=== PATIENT | female | born 1960 | race Caucasian/White ===

== ENCOUNTER 2017-10-13 06:16 | Emergency (ER) | payer OTHER, SELFPAY ==
[2017-10-13 06:30] VITALS: BP 160/100; PULSE 86; RESP 18; TEMP 36.6; O2SAT 99; BMI 29.1
--- NOTE | 2017-10-13 07:21 | ED.DENTAL ---
HPI - Dental/Oral General Chief complaint: Dental/Oral Stated complaint: MOUTH AND NECK ARE SWOLLEN Time Seen by Provider: 10/13/17 07:21 Source: patient Mode of arrival: ambulatory Limitations: no limitations History of Present Illness HPI Narrative: Patient presents to the emergency department today with a chief complaint of left jaw swelling and pain, presumably from a chronically bad tooth which has been bothering her for many months. She denies any fever or chills nor followed taste in her mouth. She denies trauma or injury MD Complaint: tooth pain 1. Onset (ago): month(s) Duration: constant Severity: mild Exacerbating factors: chewing Context: history of dental caries Associated symptoms: gum swelling Treatment prior to arrival: none Related Data Home Medications Medication Instructions Recorded Confirmed amoxicillin 500 mg PO ONCE PM 10/13/17 10/13/17 Previous Rx's Medication Instructions Recorded amoxicillin-pot clavulanate 1 tab PO BID #20 tab 10/13/17 [Augmentin] Allergies Allergy/AdvReac Type Severity Reaction Status Date / Time No Known Drug Allergies Allergy Verified 10/13/17 06:36 Review of Systems Review of Systems All systems reviewed & are unremarkable except as noted in HPI and below Constitutional Denies chills, Denies fever(s), Denies lethargy and Denies weakness Eyes Denies change in vision, Denies eye discharge, Denies irritation and Denies loss of vision ENT Ears, Nose, Mouth, and Throat: Denies change in voice, Reports facial pain, Reports mouth pain, Denies neck pain and Denies sore throat Cardiovascular Denies chest pain, Denies irregular heart rhythm, Denies lightheadedness, Denies palpitations and Denies orthopnea Gastrointestinal Gastrointestinal: Denies abdominal pain, Denies change in bowel habits, Denies diarrhea, Denies nausea and Denies vomiting Musculoskeletal Denies neck pain Integumentary/Breasts Denies pruritus, Denies erythema, Denies rash and Denies wounds Neurologic Denies loss of vision and Denies weakness Endocrine Denies palpitations [facility] Social History Smoking Status: Current every day smoker Exam Narrative Exam Narrative: Pleasant 57-year-old female in mild distress, holding the left side of her lower jaw Const General: cooperative and well developed Nutritional Appearance: well nourished Orientation: alert, awake, oriented x3 and not confused HENOR Head: normocephalic and atraumatic Ears: external ears normal and TM's normal bilaterally Nose: external nose normal and No nasal discharge Face and sinus: sinuses nontender, face asymmetric, no ecchymosis, edema on the left mandible, no fluctuance, no sinus tenderness, tenderness and No dry mucous membranes Mouth: oral mucosae normal, tongue normal and moist mucous membranes Teeth and gingiva: abnormal dentition, abnormal tooth or associated gingiva, caries and poor dentition Throat: tonsils normal and uvula midline Eyes General: appearance normal, both eyes and all related structures Eyelids: eyelids normal Conjunctivae: conjunctivae normal Sclera: sclerae normal Pupils: PERRL EOM: EOM intact bilaterally Resp Effort & Inspection: normal respiratory effort, able to speak in complete sentences, no respiratory distress and no use of accessory muscles Auscultation: clear to auscultation bilaterally, no rales, no rhonchi and no wheezes GI Inspection: non-distended Palpation: soft, no hepatosplenomegaly, No guarding, No pulsatile mass and No tender Auscultation: normal bowel sounds Skin General: no rashes or lesions noted, No jaundice and No petechiae Course Last Vital Signs Temp 97.9 F 10/13/17 06:30 Pulse 86 10/13/17 06:30 Resp 18 10/13/17 06:30 BP 160/100 H 10/13/17 06:30 Pulse Ox 99 10/13/17 06:30 Discharge Plan Departure Patient Disposition: Home, Self-Care Clinical Impression: Dental infection Discharge Date/Time: 10/13/17 07:54 Interventions: ED Discharge Assessment Last Done: 10/13/17 07:54 Instructions: Tooth Abscess Activity Restrictions/Additional Instructions: There is no evidence of an emergent or life threatening illness at this time, but follow up with your doctor in 1-2 days is recommended nonetheless to continue to rule out serious underlying causes of your symptoms. Please call the office for an appointment. Please return to the Emergency Department for any worsening or persistent symptoms. Please take medications as directed. Prescriptions: New amoxicillin-pot clavulanate [Augmentin] 875-125 mg tablet 1 tab PO BID Qty: 20 RF: 0 No Action amoxicillin 500 mg Tablet 500 mg PO ONCE PM RF: 0
== END 2017-10-13 07:54 | disposition home or self-care (01) ==
PROVIDERS: Emergency Provider Emergency Medicine
DX: K04.7 Periapical abscess without sinus (principal)
CPT/HCPCS: 99282; 99283

== ENCOUNTER 2019-01-11 14:03 | Emergency (ER) | payer OTHER, SELFPAY ==
[2019-01-11 14:05] VITALS: BP 167/81; PULSE 92; RESP 15; TEMP 36.5; O2SAT 98; BMI 31.0
[2019-01-11 14:37] LABS: INR 0.9 (0.9-1.3); Prothrombin Time 10.4 SECONDS (10.1-12.7)
[2019-01-11 14:39] LABS: Add Manual Diff / Slide Review NO; Basophils Absolute Auto 200 /uL (0-100); Basophils Percent Auto 3.9 % (0-2); Eosinophils Absolute Auto 100 /uL (0-450); Eosinophils Percent Auto 2.5 % (2-4); Hematocrit 37.9 % (36-46); Hemoglobin 12.8 g/dL (12.0-16.0); Lymphocytes Absolute Auto 2100 /uL (1100-4500); Lymphocytes Percent Auto 35.2 % (25-40); Mean Corpuscular HGB Conc 33.8 % (30-36); Mean Corpuscular Volume 85.7 fL (80-100); Monocytes Absolute Auto 500 /uL (0-900); Monocytes Percent Auto 8.9 % (3-14); Neutrophils Absolute Auto 3000 /uL (1500-7000); Neutrophils Percent Auto 49.5 % (50-75); Platelet Count 272 X10^3/uL (150-400); Red Blood Cell Count 4.42 X10^6/uL (4.0-5.2); Red Cell Distribution Width 13.6 % (11.6-14.8)
[2019-01-11 14:40] LABS: PTT Partial Thromboplastin Tim 32 SECONDS (26.4-36.2)
[2019-01-11 14:41] LABS: Alanine Aminotransferase 98 IU/L (9-52); Albumin 4.3 g/dL (3.5-5.0); Albumin Globulin Ratio 1.3 (1.0-2.8); Alkaline Phosphatase 111 U/L (38-126); Aspartate Aminotransferase 118 IU/L (14-36); Bilirubin Total 0.4 mg/dL (0.2-1.3); Blood Urea Nitrogen 12 mg/dL (7-17); Calcium 9.4 mg/dL (8.4-10.2); Carbon Dioxide 25 mmol/L (22-32); Chloride 107 mmol/L (98-107); Estimated Glomerular Filt Rate > 60.0 mL/min (>60); Globulin 3.2 g/dL (1.7-4.1); Glucose 87 mg/dL (70-100); HEMOLYSIS 25 (0-50); Sodium 141 mmol/L (137-145); Total Protein 7.5 g/dL (6.3-8.2)
[2019-01-11 15:01] VITALS: BP 139/64; PULSE 75; RESP 16; O2SAT 98
[2019-01-11 15:03] VITALS: BP 152/83; PULSE 76; RESP 18; O2SAT 100
[2019-01-11 15:30] VITALS: BP 147/79; PULSE 76; RESP 18; O2SAT 99
[2019-01-11 15:34] LABS: Bacteria Urine Moderate (10-30); Mucus Urine 1+ (Negative); RBC Urine 1-5/HPF (0-5/HPF); Squamous Epithelial Cell Urine 5-10 /HPF (0-5/HPF); WBC Urine 5-10/HPF (0-5/HPF)
[2019-01-11 15:35] LABS: Culture Indicated Urine Cult Not Indicated
[2019-01-11 16:00] VITALS: BP 151/95; PULSE 83; RESP 17; O2SAT 100
--- NOTE | 2019-01-11 16:28 | ED.GIBLEED ---
HPI - GI Bleed <ZAYNAB Alcantar - Last Filed: 01/12/19 02:50> General Chief complaint: GI Bleed Stated complaint: states rectal bleeding Time Seen by Provider: 01/11/19 14:11 Source: patient Mode of arrival: ambulatory Limitations: no limitations History of Present Illness HPI Narrative: This is pleasant 58-year-old female, smoker, who presents with her sister with chief complain of bright red rectal bleeding in to toilet 5 days ago. Patient reports she had about 6 soft stool with the bright rectal bleeding. Than she had dark colored soft stool 3 days ago. She reports history of external hemorrhoids but usually feels itching and has a small amount of bleeding on a tissue. She denies abdominal pain, chest pain, breathing trouble, dizziness. She reports maybe feeling increase in fatigue from her baseline. She does not take anticoagulants or antiplatelets at this time. She has been taking Motrin for headaches last 3-4 days. She reports last 2 days her bowel movements look in normal appearance. Related Data Allergies Allergy/AdvReac Type Severity Reaction Status Date / Time No Known Drug Allergies Allergy Verified 10/13/17 06:36 Review of Systems <ZAYNAB Alcantar - Last Filed: 01/12/19 02:50> Review of Systems General: See HPI HEENT: Denies sinus pain, ear pain, sore throat, difficulty swallowing, dizziness. Respiratory: Denies dyspnea, cough, wheezing, hemoptysis, sputum. Cardiovascular: Denies chest pain, palpitations, orthopnea, edema. Gastrointestinal: See HPI : Denies dysuria, frequency, incontinence, hematuria, urinary retention. Musculoskeletal: Denies weakness, joint pain or bony pain. Skin: Denies rash, skin lesions, or other. Neurologic: Denies weakness, headache, numbness, change in speech, confusion, seizures, incoordination. Psychiatric: No concerning psychosocial issues. 12-point review of systems is negative except for those stated above. PFSH <ZAYNAB Alcantar - Last Filed: 01/12/19 02:50> Social History Smoking Status: Current every day smoker Social History Smoking Status: Current every day smoker Exam <ZAYNAB Alcantar - Last Filed: 01/12/19 02:50> Narrative Exam Narrative: GEN: Alert, oriented x 3, well appearing and nourished, and in no acute distress. Head: Normal cephalic, atraumatic. No scalp or temporal tenderness, palpable mass or rash. EYES: Pupils are equal, round, and reactive to light and accommodation. Extraocular muscles are intact bilaterally. There is no subconjunctival hemorrhage, exudate and sclera non-icteric. ENT: Bilateral auditory canals and tympanic membranes. Hearing grossly intact. Mucous membrane moist, no mucosal lesion. Throat without erythema, tonsillar hypertrophy or exudate. Uvula in midline, airway patent. Neck: Trachea in midline. No JVD, non-tender without lymphadenopathy. No masses or thyroid megaly. Supple, non-tender and no meningeal signs. CARDIAC: Normal regular rate and rhythm without murmurs, gallops, or rubs. No chest wall tenderness. No peripheral edema, cyanosis or pallor. Capillary refill is less than 2 seconds. RESPIRATORY: Lungs are cleat to auscultate bilaterally. No cough, wheezes, rales, or rhonchi. No stridor, respiratory distress, increase work of breathing, or accessary muscle used. ABD: Abdomen soft, nontender and non-distended. No guarding or rebound tenderness to palpate. Bowel sounds are normal in all 4 quadrants. There is no palpable masses or organomegaly. External hemorrhoids noted. No internal hemorrhoids palpated. Hemoccult test Negative here in ED and stool sample brought in from home. EXT: Full painless ROM of all extremities with no loss of sensation, strength, effusion or edema. SKIN: Warm, dry, normal color for patient. No erythema, lesions or rash over visible areas BACK: Nontender without deformity or crepitance. No flank tenderness. NEUROLOGICAL: Alert and oriented to place, time and person. Sensation and motor function intact bilaterally. No facial droops, dysphasia. PSYCHIATRIC: Good judgement and reason, without hallucinations, abnormal affect or abnormal behaviors during the examination. Initial Vital Signs Initial Vital Signs: Vital Signs Temperature 97.7 F 01/11/19 14:05 Pulse Rate 92 H 01/11/19 14:05 Respiratory Rate 15 01/11/19 14:05 Blood Pressure 167/81 H 01/11/19 14:05 Pulse Oximetry 98 01/11/19 14:05 <Isai Gooden DO - Last Filed: 01/13/19 06:38> Initial Vital Signs Initial Vital Signs: Vital Signs Temperature 97.7 F 01/11/19 14:05 Pulse Rate 92 H 01/11/19 14:05 Respiratory Rate 15 01/11/19 14:05 Blood Pressure 167/81 H 01/11/19 14:05 Pulse Oximetry 98 01/11/19 14:05 Course <EMELIA AlcantarP - Last Filed: 01/12/19 02:50> Orders Ordered: ED Orders 01/11/19 14:16 Complete Blood Count AUTO DIFF Stat Comprehensive Metabolic Panel Stat Partial Thromboplastin Time Stat Prothrombin Time INR Stat Type and Screen Stat 01/11/19 15:03 Urine Microscopic Stat Vital Signs - 8 hr 01/11/19 14:05 01/11/19 15:01 01/11/19 15:03 Temperature 97.7 F Pulse Rate 92 H 75 76 Respiratory Rate 15 16 18 Blood Pressure 167/81 H Blood Pressure [Left Arm] 139/64 152/83 H Pulse Oximetry 98 98 100 01/11/19 15:30 Temperature Pulse Rate 76 Respiratory Rate 18 Blood Pressure Blood Pressure [Left Arm] 147/79 H Pulse Oximetry 99 <Isai Gooden DO - Last Filed: 01/13/19 06:38> Orders Ordered: ED Orders 01/11/19 14:16 Complete Blood Count AUTO DIFF Stat Comprehensive Metabolic Panel Stat Partial Thromboplastin Time Stat Prothrombin Time INR Stat Type and Screen Stat 01/11/19 15:03 Urine Microscopic Stat Vital Signs - 8 hr 01/11/19 14:05 01/11/19 15:01 01/11/19 15:03 Temperature 97.7 F Pulse Rate 92 H 75 76 Respiratory Rate 15 16 18 Blood Pressure 167/81 H Blood Pressure [Left Arm] 139/64 152/83 H Pulse Oximetry 98 98 100 01/11/19 15:30 Temperature Pulse Rate 76 Respiratory Rate 18 Blood Pressure Blood Pressure [Left Arm] 147/79 H Pulse Oximetry 99 MDM - GI Bleed <ZAYNAB Alcantar - Last Filed: 01/12/19 02:50> Differential Diagnosis Likely hemorrhoids, gastritis, Upper gastrointestinal hemorrhage, Lower gastrointestinal hemorrhage and anal fissure Medical Records Attestation: I reviewed the patient's medical records. Lab Data Attestation: I reviewed the patient's lab results. Result diagrams: 01/11/19 14:16 01/11/19 14:16 Lab Results 01/11/19 01/11/19 01/11/19 Range/Units 14:16 14:16 14:16 WBC 6.0 (4.5-11.0) X10^3/uL RBC 4.42 (4.0-5.2) X10^6/uL Hgb 12.8 (12.0-16.0) g/dL Hct 37.9 (36-46) % MCV 85.7 (80-100) fL MCH 29.0 (26-34) PG MCHC 33.8 (30-36) % RDW 13.6 (11.6-14.8) % Plt Count 272 (150-400) X10^3/uL Neut % (Auto) 49.5 L (50-75) % Lymph % (Auto) 35.2 (25-40) % Pike % (Auto) 8.9 (3-14) % Eos % (Auto) 2.5 (2-4) % Baso % (Auto) 3.9 H (0-2) % Neut # (Auto) 3000 (7385-1818) /uL Lymph # (Auto) 2100 (2239-9463) /uL Pike # (Auto) 500 (0-900) /uL Eos # (Auto) 100 (0-450) /uL Baso # (Auto) 200 H (0-100) /uL PT 10.4 (10.1-12.7) SECONDS INR 0.9 (0.9-1.3) APTT 32 (26.4-36.2) SECONDS Sodium 141 (137-145) mmol/L Potassium 4.0 (3.4-5.1) mmol/L Chloride 107 (98-107) mmol/L Carbon Dioxide 25 (22-32) mmol/L BUN 12 (7-17) mg/dL Creatinine 0.60 (0.52-1.04) mg/dL Estimated GFR > 60.0 (>60) mL/min BUN/Creatinine Ratio 20.0 (6-22) Glucose 87 (70-100) mg/dL Calcium 9.4 (8.4-10.2) mg/dL Total Bilirubin 0.4 (0.2-1.3) mg/dL AST 118 H (14-36) IU/L ALT 98 H (9-52) IU/L Alkaline Phosphatase 111 (38-126) U/L Total Protein 7.5 (6.3-8.2) g/dL Albumin 4.3 (3.5-5.0) g/dL Globulin 3.2 (1.7-4.1) g/dL Albumin/Globulin Ratio 1.3 (1.0-2.8) Urine RBC (0-5/HPF) Urine WBC (0-5/HPF) Ur Squamous Epith Cells (0-5/HPF) Urine Bacteria (None) Urine Mucus (Negative) Ur Culture Indicated? Blood Type Antibody Screen 01/11/19 01/11/19 Range/Units 14:16 15:03 WBC (4.5-11.0) X10^3/uL RBC (4.0-5.2) X10^6/uL Hgb (12.0-16.0) g/dL Hct (36-46) % MCV (80-100) fL MCH (26-34) PG MCHC (30-36) % RDW (11.6-14.8) % Plt Count (150-400) X10^3/uL Neut % (Auto) (50-75) % Lymph % (Auto) (25-40) % [place]ike % (Auto) (3-14) % Eos % (Auto) (2-4) % Baso % (Auto) (0-2) % Neut # (Auto) (1254-5994) /uL Lymph # (Auto) (4456-5970) /uL Pike # (Auto) (0-900) /uL Eos # (Auto) (0-450) /uL Baso # (Auto) (0-100) /uL PT (10.1-12.7) SECONDS INR (0.9-1.3) APTT (26.4-36.2) SECONDS Sodium (137-145) mmol/L Potassium (3.4-5.1) mmol/L Chloride (98-107) mmol/L Carbon Dioxide (22-32) mmol/L BUN (7-17) mg/dL Creatinine (0.52-1.04) mg/dL Estimated GFR (>60) mL/min BUN/Creatinine Ratio (6-22) Glucose (70-100) mg/dL Calcium (8.4-10.2) mg/dL Total Bilirubin (0.2-1.3) mg/dL AST (14-36) IU/L ALT (9-52) IU/L Alkaline Phosphatase (38-126) U/L Total Protein (6.3-8.2) g/dL Albumin (3.5-5.0) g/dL Globulin (1.7-4.1) g/dL Albumin/Globulin Ratio (1.0-2.8) Urine RBC 1-5/hpf (0-5/HPF) Urine WBC 5-10/hpf H (0-5/HPF) Ur Squamous Epith Cells 5-10 /hpf H (0-5/HPF) Urine Bacteria Moderate (10-30) H (None) Urine Mucus 1+ H (Negative) Ur Culture Indicated? Cult not indicated Blood Type O Positive Antibody Screen Negative Urine Dip Bedside Urine Glucose Negative Bedside Urine Bilirubin - Negative Bedside Urine Ketone - Negative Urine Specific [place] 1.030 Bedside Urine Occult Blood +/- Bedside Urine pH 5 Bedside Urine Protein - Negative Bedside Urine Urobilinogen - Negative Bedside Urine Nitrite - Negative Bedside Urine Leukocytes + 70 Esterase MDM Narrative Medical decision making narrative: This is a 58 year old female who presents with bright rectal bleeding 5 days ago and dark color stool 3 days ago. She has contacted her primary care physician she was advised to be evaluated ED. Today's lab test for CBC, chemistry, coagulants were unremarkable, except incidental findings of elevated AST and ALT. Physical exam was benign and does not exhibit any abdominal tenderness, distention, organomegaly. Rectal exam was done with Hemoccult test which was negative. Visualized external hemorrhoids during exam but no fissures were noted. Findings were shared with the patient and her sister. The patient was advised to follow with her doctor in 2-3 days for re-evaluation and possible referral for colonoscopy the problem persists. Return precautions were discussed with the patient. No further questions expressed at this time and patient agrees with treatment plan. <Isai Gooden DO - Last Filed: 01/13/19 06:38> Lab Data Lab Results 01/11/19 01/11/19 01/11/19 Range/Units 14:16 14:16 14:16 WBC 6.0 (4.5-11.0) X10^3/uL RBC 4.42 (4.0-5.2) X10^6/uL Hgb 12.8 (12.0-16.0) g/dL Hct 37.9 (36-46) % MCV 85.7 (80-100) fL MCH 29.0 (26-34) PG MCHC 33.8 (30-36) % RDW 13.6 (11.6-14.8) % Plt Count 272 (150-400) X10^3/uL Neut % (Auto) 49.5 L (50-75) % Lymph % (Auto) 35.2 (25-40) % Pike % (Auto) 8.9 (3-14) % Eos % (Auto) 2.5 (2-4) % Baso % (Auto) 3.9 H (0-2) % Neut # (Auto) 3000 (3949-8309) /uL Lymph # (Auto) 2100 (1678-3999) /uL Pike # (Auto) 500 (0-900) /uL Eos # (Auto) 100 (0-450) /uL Baso # (Auto) 200 H (0-100) /uL PT 10.4 (10.1-12.7) SECONDS INR 0.9 (0.9-1.3) APTT 32 (26.4-36.2) SECONDS Sodium 141 (137-145) mmol/L Potassium 4.0 (3.4-5.1) mmol/L Chloride 107 (98-107) mmol/L Carbon Dioxide 25 (22-32) mmol/L BUN 12 (7-17) mg/dL Creatinine 0.60 (0.52-1.04) mg/dL Estimated GFR > 60.0 (>60) mL/min BUN/Creatinine Ratio 20.0 (6-22) Glucose 87 (70-100) mg/dL Calcium 9.4 (8.4-10.2) mg/dL Total Bilirubin 0.4 (0.2-1.3) mg/dL AST 118 H (14-36) IU/L ALT 98 H (9-52) IU/L Alkaline Phosphatase 111 (38-126) U/L Total Protein 7.5 (6.3-8.2) g/dL Albumin 4.3 (3.5-5.0) g/dL Globulin 3.2 (1.7-4.1) g/dL Albumin/Globulin Ratio 1.3 (1.0-2.8) Urine RBC (0-5/HPF) Urine WBC (0-5/HPF) Ur Squamous Epith Cells (0-5/HPF) Urine Bacteria (None) Urine Mucus (Negative) Ur Culture Indicated? Blood Type Antibody Screen 01/11/19 01/11/19 Range/Units 14:16 15:03 WBC (4.5-11.0) X10^3/uL RBC (4.0-5.2) X10^6/uL Hgb (12.0-16.0) g/dL Hct (36-46) % MCV (80-100) fL MCH (26-34) PG MCHC (30-36) % RDW (11.6-14.8) % Plt Count (150-400) X10^3/uL Neut % (Auto) (50-75) % Lymph % (Auto) (25-40) % [place] % (Auto) (3-14) % Eos % (Auto) (2-4) % Baso % (Auto) (0-2) % Neut # (Auto) (6840-6269) /uL Lymph # (Auto) (0948-7674) /uL [place]ike # (Auto) (0-900) /uL Eos # (Auto) (0-450) /uL Baso # (Auto) (0-100) /uL PT (10.1-12.7) SECONDS INR (0.9-1.3) APTT (26.4-36.2) SECONDS Sodium (137-145) mmol/L Potassium (3.4-5.1) mmol/L Chloride (98-107) mmol/L Carbon Dioxide (22-32) mmol/L BUN (7-17) mg/dL Creatinine (0.52-1.04) mg/dL Estimated GFR (>60) mL/min BUN/Creatinine Ratio (6-22) Glucose (70-100) mg/dL Calcium (8.4-10.2) mg/dL Total Bilirubin (0.2-1.3) mg/dL AST (14-36) IU/L ALT (9-52) IU/L Alkaline Phosphatase (38-126) U/L Total Protein (6.3-8.2) g/dL Albumin (3.5-5.0) g/dL Globulin (1.7-4.1) g/dL Albumin/Globulin Ratio (1.0-2.8) Urine RBC 1-5/hpf (0-5/HPF) Urine WBC 5-10/hpf H (0-5/HPF) Ur Squamous Epith Cells 5-10 /hpf H (0-5/HPF) Urine Bacteria Moderate (10-30) H (None) Urine Mucus 1+ H (Negative) Ur Culture Indicated? Cult not indicated Blood Type O Positive Antibody Screen Negative Urine Dip Bedside Urine Glucose Negative Bedside Urine Bilirubin - Negative Bedside Urine Ketone - Negative Urine Specific [place] 1.030 Bedside Urine Occult Blood +/- Bedside Urine pH 5 Bedside Urine Protein - Negative Bedside Urine Urobilinogen - Negative Bedside Urine Nitrite - Negative Bedside Urine Leukocytes + 70 Esterase Discharge Plan Departure Patient Disposition: Home Clinical Impression: External hemorrhoid Discharge Date/Time: 01/11/19 16:45 Interventions: ED Discharge Assessment Last Done: 01/11/19 16:45 Instructions: DI for Hemorrhoids, Gastrointestinal Bleeding Activity Restrictions/Additional Instructions: You have been diagnosed with [external hemorrhoids. Your blood count looks good today there is no signs of anemia. Incidental finding of mildly elevated liver function test (AST and ALT) please follow up with your doctor next couple of months on this. ]. What to do: *Take your medications as directed. No new medications to go home from this visit. *Follow up with your primary care provider in 2-3 days, call for an appointment. Let them know you were seen in the ED and that we asked you to be seen in follow up. *Return to ED if you have any new, worsening, or concerning symptoms, such as [bright red rectal bleeding, black tarry stool, abdominal pain, vomiting, unable to tolerate fluids, dizziness, chest pain, breathing difficulty, difficulty with bowel movement]. Referrals: [facility] [Outside] <Isia Gooden DO - Last Filed: 01/13/19 06:38> Cosign ED Attending Teresa Attestation: I was immediately available in the department for consultation. Documentation has been reviewed. I agree with assessment and plan.
--- NOTE | 2019-01-11 16:36 | ED_ITS ---
HPI - GI Bleed <ZAYNAB Alcantar - Last Filed: 01/12/19 02:50> General Chief complaint: GI Bleed Stated complaint: states rectal bleeding Time Seen by Provider: 01/11/19 14:11 Source: patient Mode of arrival: ambulatory Limitations: no limitations History of Present Illness HPI Narrative: This is pleasant 58-year-old female, smoker, who presents with her sister with chief complain of bright red rectal bleeding in to toilet 5 days ago. Patient reports she had about 6 soft stool with the bright rectal bleeding. Than she had dark colored soft stool 3 days ago. She reports history of external hemorrhoids but usually feels itching and has a small amount of bleeding on a tissue. She denies abdominal pain, chest pain, breathing trouble, dizziness. She reports maybe feeling increase in fatigue from her baseline. She does not take anticoagulants or antiplatelets at this time. She has been taking Motrin for headaches last 3-4 days. She reports last 2 days her bowel movements look in normal appearance. Related Data Allergies Allergy/AdvReac Type Severity Reaction Status Date / Time No Known Drug Allergies Allergy Verified 10/13/17 06:36 Review of Systems <ZAYNAB Alcantar - Last Filed: 01/12/19 02:50> Review of Systems General: See HPI HEENT: Denies sinus pain, ear pain, sore throat, difficulty swallowing, dizziness. Respiratory: Denies dyspnea, cough, wheezing, hemoptysis, sputum. Cardiovascular: Denies chest pain, palpitations, orthopnea, edema. Gastrointestinal: See HPI : Denies dysuria, frequency, incontinence, hematuria, urinary retention. Musculoskeletal: Denies weakness, joint pain or bony pain. Skin: Denies rash, skin lesions, or other. Neurologic: Denies weakness, headache, numbness, change in speech, confusion, seizures, incoordination. Psychiatric: No concerning psychosocial issues. 12-point review of systems is negative except for those stated above. PFSH <ZAYNAB Alcantar - Last Filed: 01/12/19 02:50> Social History Smoking Status: Current every day smoker Social History Smoking Status: Current every day smoker Exam <ZAYNAB Alcantar - Last Filed: 01/12/19 02:50> Narrative Exam Narrative: GEN: Alert, oriented x 3, well appearing and nourished, and in no acute distress. Head: Normal cephalic, atraumatic. No scalp or temporal tenderness, palpable mass or rash. EYES: Pupils are equal, round, and reactive to light and accommodation. Extraocular muscles are intact bilaterally. There is no subconjunctival hemorrhage, exudate and sclera non-icteric. ENT: Bilateral auditory canals and tympanic membranes. Hearing grossly intact. Mucous membrane moist, no mucosal lesion. Throat without erythema, tonsillar hypertrophy or exudate. Uvula in midline, airway patent. Neck: Trachea in midline. No JVD, non-tender without lymphadenopathy. No masses or thyroid megaly. Supple, non-tender and no meningeal signs. CARDIAC: Normal regular rate and rhythm without murmurs, gallops, or rubs. No chest wall tenderness. No peripheral edema, cyanosis or pallor. Capillary refill is less than 2 seconds. RESPIRATORY: Lungs are cleat to auscultate bilaterally. No cough, wheezes, rales, or rhonchi. No stridor, respiratory distress, increase work of breathing, or accessary muscle used. ABD: Abdomen soft, nontender and non-distended. No guarding or rebound tenderne ss to palpate. Bowel sounds are normal in all 4 quadrants. There is no palpable masses or organomegaly. External hemorrhoids noted. No internal hemorrhoids palpated. Hemoccult test Negative here in ED and stool sample brought in from home. EXT: Full painless ROM of all extremities with no loss of sensation, strength, effusion or edema. SKIN: Warm, dry, normal color for patient. No erythema, lesions or rash over visible areas BACK: Nontender without deformity or crepitance. No flank tenderness. NEUROLOGICAL: Alert and oriented to place, time and person. Sensation and motor function intact bilaterally. No facial droops, dysphasia. PSYCHIATRIC: Good judgement and reason, without hallucinations, abnormal affect or abnormal behaviors during the examination. Initial Vital Signs Initial Vital Signs: Vital Signs Temperature 97.7 F 01/11/19 14:05 Pulse Rate 92 H 01/11/19 14:05 Respiratory Rate 15 01/11/19 14:05 Blood Pressure 167/81 H 01/11/19 14:05 Pulse Oximetry 98 08/09/19 14:05 <Isai Gooden DO - Last Filed: 01/13/19 06:38> Initial Vital Signs Initial Vital Signs: Vital Signs Temperature 97.7 F 01/11/19 14:05 Pulse Rate 92 H 01/11/19 14:05 Respiratory Rate 15 01/11/19 14:05 Blood Pressure 167/81 H 01/11/19 14:05 Pulse Oximetry 98 01/11/19 14:05 Course <EMELIA AlcantarP - Last Filed: 01/12/19 02:50> Orders Ordered: ED Orders 01/11/19 14:16 Complete Blood Count AUTO DIFF Stat Comprehensive Metabolic Panel Stat Partial Thromboplastin Time Stat Prothrombin Time INR Stat Type and Screen Stat 01/11/19 15:03 Urine Microscopic Stat Vital Signs - 8 hr 01/11/19 14:05 01/11/19 15:01 01/11/19 15:03 Temperature 97.7 F Pulse Rate 92 H 75 76 Respiratory Rate 15 16 18 Blood Pressure 167/81 H Blood Pressure [Left Arm] 139/64 152/83 H Pulse Oximetry 98 98 100 01/11/19 15:30 Temperature Pulse Rate 76 Respiratory Rate 18 Blood Pressure Blood Pressure [Left Arm] 147/79 H Pulse Oximetry 99 <Isai Gooden DO - Last Filed: 01/13/19 06:38> Orders Ordered: ED Orders 01/11/19 14:16 Complete Blood Count AUTO DIFF Stat Comprehensive Metabolic Panel Stat Partial Thromboplastin Time Stat Prothrombin Time INR Stat Type and Screen Stat 01/11/19 15:03 Urine Microscopic Stat Vital Signs - 8 hr 01/11/19 14:05 01/11/19 15:01 01/11/19 15:03 Temperature 97.7 F Pulse Rate 92 H 75 76 Respiratory Rate 15 16 18 Blood Pressure 167/81 H Blood Pressure [Left Arm] 139/64 152/83 H Pulse Oximetry 98 98 100 01/11/19 15:30 Temperature Pulse Rate 76 Respiratory Rate 18 Blood Pressure Blood Pressure [Left Arm] 147/79 H Pulse Oximetry 99 MDM - GI Bleed <ZAYNAB Alcantar - Last Filed: 01/12/19 02:50> Differential Diagnosis Likely hemorrhoids, gastritis, Upper gastrointestinal hemorrhage, Lower gastrointestinal hemorrhage and anal fissure Medical Records Attestation: I reviewed the patient's medical records. Lab Data Attestation: I reviewed the patient's lab results. Result diagrams: 01/11/19 14:16 01/11/19 14:16 Lab Results 01/11/19 01/11/19 01/11/19 Range/Units 14:16 14:16 14:16 WBC 6.0 (4.5-11.0) X10^3/uL RBC 4.42 (4.0-5.2) X10^6/uL Hgb 12.8 (12.0-16.0) g/dL Hct 37.9 (36-46) % MCV 85.7 (80-100) fL MCH 29.0 (26-34) PG MCHC 33.8 (30-36) % RDW 13.6 (11.6-14.8) % Plt Count 272 (150-400) X10^3/uL Neut % (Auto) 49.5 L (50-75) % Lymph % (Auto) 35.2 (25-40) % [place] % (Auto) 8.9 (3-14) % Eos % (Auto) 2.5 (2-4) % Baso % (Auto) 3.9 H (0-2) % Neut # (Auto) 3000 (8921-9610) /uL Lymph # (Auto) 2100 (3077-0156) /uL [place] # (Auto) 500 (0-900) /uL Eos # (Auto) 100 (0-450) /uL Baso # (Auto) 200 H (0-100) /uL PT 10.4 (10.1-12.7) SECONDS INR 0.9 (0.9-1.3) APTT 32 (26.4-36.2) SECONDS Sodium 141 (137-145) mmol/L Potassium 4.0 (3.4-5.1) mmol/L Chloride 107 (98-107) mmol/L Carbon Dioxide 25 (22-32) mmol/L BUN 12 (7-17) mg/dL Creatinine 0.60 (0.52-1.04) mg/dL Estimated GFR > 60.0 (>60) mL/min BUN/Creatinine Ratio 20.0 (6-22) Glucose 87 (70-100) mg/dL Calcium 9.4 (8.4-10.2) mg/dL Total Bilirubin 0.4 (0.2-1.3) mg/dL AST 118 H (14-36) IU/L ALT 98 H (9-52) IU/L Alkaline Phosphatase 111 (38-126) U/L Total Protein 7.5 (6.3-8.2) g/dL Albumin 4.3 (3.5-5.0) g/dL Globulin 3.2 (1.7-4.1) g/dL Albumin/Globulin Ratio 1.3 (1.0-2.8) Urine RBC (0-5/HPF) Urine WBC (0-5/HPF) Ur Squamous Epith Cells (0-5/HPF) Urine Bacteria (None) Urine Mucus (Negative) Ur Culture Indicated? Blood Type Antibody Screen 01/11/19 01/11/19 Range/Units 14:16 15:03 WBC (4.5-11.0) X10^3/uL RBC (4.0-5.2) X10^6/uL Hgb (12.0-16.0) g/dL Hct (36-46) % MCV (80-100) fL MCH (26-34) PG MCHC (30-36) % RDW (11.6-14.8) % Plt Count (150-400) X10^3/uL Neut % (Auto) (50-75) % Lymph % (Auto) (25-40) % [place] % (Auto) (3-14) % Eos % (Auto) (2-4) % Baso % (Auto) (0-2) % Neut # (Auto) (9803-9912) /uL Lymph # (Auto) (0935-4201) /uL [place] # (Auto) (0-900) /uL Eos # (Auto) (0-450) /uL Baso # (Auto) (0-100) /uL PT (10.1-12.7) SECONDS INR (0.9-1.3) APTT (26.4-36.2) SECONDS Sodium (137-145) mmol/L Potassium (3.4-5.1) mmol/L Chloride (98-107) mmol/L Carbon Dioxide (22-32) mmol/L BUN (7-17) mg/dL Creatinine (0.52-1.04) mg/dL Estimated GFR (>60) mL/min BUN/Creatinine Ratio (6-22) Glucose (70-100) mg/dL Calcium (8.4-10.2) mg/dL Total Bilirubin (0.2-1.3) mg/dL AST (14-36) IU/L ALT (9-52) IU/L Alkaline Phosphatase (38-126) U/L Total Protein (6.3-8.2) g/dL Albumin (3.5-5.0) g/dL Globulin (1.7-4.1) g/dL Albumin/Globulin Ratio (1.0-2.8) Urine RBC 1-5/hpf (0-5/HPF) Urine WBC 5-10/hpf H (0-5/HPF) Ur Squamous Epith Cells 5-10 /hpf H (0-5/HPF) Urine Bacteria Moderate (10-30) H (None) Urine Mucus 1+ H (Negative) Ur Culture Indicated? Cult not indicated Blood Type O Positive Antibody Screen Negative Urine Dip Bedside Urine Glucose Negative Bedside Urine Bilirubin - Negative Bedside Urine Ketone - Negative Urine Specific Start 1.030 Bedside Urine Occult Blood +/- Bedside Urine pH 5 Bedside Urine Protein - Negative Bedside Urine Urobilinogen - Negative Bedside Urine Nitrite - Negative Bedside Urine Leukocytes + 70 Esterase MDM Narrative Medical decision making narrative: This is a 58 year old female who presents with bright rectal bleeding 5 days ago and dark color stool 3 days ago. She has contacted her primary care physician she was advised to be evaluated ED. Today's lab test for CBC, chemistry, coagulants were unremarkable, except incidental findings of elevated AST and ALT. Physical exam was benign and does not exhibit any abdominal tenderness, distention, organomegaly. Rectal exam was done with Hemoccult test which was negative. Visualized external hemorrhoids du ring exam but no fissures were noted. Findings were shared with the patient and her sister. The patient was advised to follow with her doctor in 2-3 days for re-evaluation and possible referral for colonoscopy the problem persists. Return precautions were discussed with the patient. No further questions expressed at this time and patient agrees with treatment plan. <Isai Gooden DO - Last Filed: 01/13/19 06:38> Lab Data Lab Results 01/11/19 01/11/19 01/11/19 Range/Units 14:16 14:16 14:16 WBC 6.0 (4.5-11.0) X10^3/uL RBC 4.42 (4.0-5.2) X10^6/uL Hgb 12.8 (12.0-16.0) g/dL Hct 37.9 (36-46) % MCV 85.7 (80-100) fL MCH 29.0 (26-34) PG MCHC 33.8 (30-36) % RDW 13.6 (11.6-14.8) % Plt Count 272 (150-400) X10^3/uL Neut % (Auto) 49.5 L (50-75) % Lymph % (Auto) 35.2 (25-40) % [place] % (Auto) 8.9 (3-14) % Eos % (Auto) 2.5 (2-4) % Baso % (Auto) 3.9 H (0-2) % Neut # (Auto) 3000 (4439-7391) /uL Lymph # (Auto) 2100 (3986-7291) /uL [place] # (Auto) 500 (0-900) /uL Eos # (Auto) 100 (0-450) /uL Baso # (Auto) 200 H (0-100) /uL PT 10.4 (10.1-12.7) SECONDS INR 0.9 (0.9-1.3) APTT 32 (26.4-36.2) SECONDS Sodium 141 (137-145) mmol/L Potassium 4.0 (3.4-5.1) mmol/L Chloride 107 (98-107) mmol/L Carbon Dioxide 25 (22-32) mmol/L BUN 12 (7-17) mg/dL Creatinine 0.60 (0.52-1.04) mg/dL Estimated GFR > 60.0 (>60) mL/min BUN/Creatinine Ratio 20.0 (6-22) Glucose 87 (70-100) mg/dL Calcium 9.4 (8.4-10.2) mg/dL Total Bilirubin 0.4 (0.2-1.3) mg/dL AST 118 H (14-36) IU/L ALT 98 H (9-52) IU/L Alkaline Phosphatase 111 (38-126) U/L Total Protein 7.5 (6.3-8.2) g/dL Albumin 4.3 (3.5-5.0) g/dL Globulin 3.2 (1.7-4.1) g/dL Albumin/Globulin Ratio 1.3 (1.0-2.8) Urine RBC (0-5/HPF) Urine WBC (0-5/HPF) Ur Squamous Epith Cells (0-5/HPF) Urine Bacteria (None) Urine Mucus (Negative) Ur Culture Indicated? Blood Type Antibody Screen 01/11/19 01/11/19 Range/Units 14:16 15:03 WBC (4.5-11.0) X10^3/uL RBC (4.0-5.2) X10^6/uL Hgb (12.0-16.0) g/dL Hct (36-46) % MCV (80-100) fL MCH (26-34) PG MCHC (30-36) % RDW (11.6-14.8) % Plt Count (150-400) X10^3/uL Neut % (Auto) (50-75) % Lymph % (Auto) (25-40) % [place] % (Auto) (3-14) % Eos % (Auto) (2-4) % Baso % (Auto) (0-2) % Neut # (Auto) (1036-1187) /uL Lymph # (Auto) (4927-5546) /uL [place] # (Auto) (0-900) /uL Eos # (Auto) (0-450) /uL Baso # (Auto) (0-100) /uL PT (10.1-12.7) SECONDS INR (0.9-1.3) APTT (26.4-36.2) SECONDS Sodium (137-145) mmol/L Potassium (3.4-5.1) mmol/L Chloride (98-107) mmol/L Carbon Dioxide (22-32) mmol/L BUN (7-17) mg/dL Creatinine (0.52-1.04) mg/dL Estimated GFR (>60) mL/min BUN/Creatinine Ratio (6-22) Glucose (70-100) mg/dL Calcium (8.4-10.2) mg/dL Total Bilirubin (0.2-1.3) mg/dL AST (14-36) IU/L ALT (9-52) IU/L Alkaline Phosphatase (38-126) U/L Total Protein (6.3-8.2) g/dL Albumin (3.5-5.0) g/dL Globulin (1.7-4.1) g/dL Albumin/Globulin Ratio (1.0-2.8) Urine RBC 1-5/hpf (0-5/HPF) Urine WBC 5-10/hpf H (0-5/HPF) Ur Squamous Epith Cells 5-10 /hpf H (0-5/HPF) Urine Bacteria Moderate (10-30) H (None) Urine Mucus 1+ H (Negative) Ur Culture Indicated? Cult not indicated Blood Type O Positive Antibody Screen Negative Urine Dip Bedside Urine Glucose Negative Bedside Urine Bilirubin - Negative Bedside Urine Ketone - Negative Urine Specific Start 1.030 Bedside Urine Occult Blood +/- Bedside Urine pH 5 Bedside Urine Protein - Negative Bedside Urine Urobilinogen - Negative Bedside Urine Nitrite - Negative Bedside Urine Leukocytes + 70 Esterase Discharge Plan Departure Patient Disposition: Home Clinical Impression: External hemorrhoid Discharge Date/Time: 01/11/19 16:45 Interventions: ED Discharge Assessment Last Done: 01/11/19 16:45 Instructions: DI for Hemorrhoids, Gastrointestinal Bleeding Activity Restrictions/Additional Instructions: You have been diagnosed with [external hemorrhoids. Your blood count looks good today there is no signs of anemia. Incidental finding of mildly elevated liver function test (AST and ALT) please follow up with your doctor next couple of months on this. ]. What to do: *Take your medications as directed. No new medications to go home from this visit. *Follow up with your primary care provider in 2-3 days, call for an appointment. Let them know you were seen in the ED and that we asked you to be seen in follow up. *Return to ED if you have any new, worsening, or concerning symptoms, such as [bright red rectal bleeding, black tarry stool, abdominal pain, vomiting, unable to tolerate fluids, dizziness, chest pain, breathing difficulty, difficulty with bowel movement]. Referrals: [facility] [Outside] <Isai Gooden DO - Last Filed: 01/13/19 06:38> Cosign ED Attending Teresa Attestation: I was immediately available in the department for consultation. Documentation has been reviewed. I agree with assessment and plan.
== END 2019-01-11 16:45 | disposition home or self-care (01) ==
PROVIDERS: Emergency Provider Nurse Practitioner Family
DX: K64.4 Residual hemorrhoidal skin tags (principal)
CPT/HCPCS: 36591; 80053; 81003; 81015; 85025; 85610; 85730; 86850; 86900; 86901; 99283

== ENCOUNTER 2020-07-24 17:35 | Emergency (ER) | payer OTHER, SELFPAY ==
[2020-07-24 17:57] VITALS: BP 171/88; PULSE 91; RESP 12; TEMP 36.9; O2SAT 100
--- NOTE | 2020-07-24 19:00 | PC.NURSE ---
attempted to bring pt to ED,unable to locate pt in lobby
--- NOTE | 2020-07-24 19:48 | PC.NURSE ---
patient called for several times and was unable to locate patient. Patient returned from car.
--- NOTE | 2020-07-24 20:05 | ED_ITS ---
HPI - Extremity Problem General Chief complaint: Extremity Problem,Nontraumatic Stated complaint: right side leg swelling, 2wks, no injury Time Seen by Provider: 07/24/20 20:01 Source: patient Mode of arrival: Ambulatory Limitations: no limitations History of Present Illness HPI Narrative: Patient is a 60-year-old female here for evaluation of swelling in her right lower extremity. She states she has noticed it for the past couple weeks. She denies any trauma. No chest pain. No shortness of breath. She does feel like the swelling improves night will wall her foot is up in his worse throughout the day. She has not seen her primary doctor about her. She is not having any fevers. Has not tried anything for it. Related Data Allergies Allergy/AdvReac Type Severity Reaction Status Date / Time No Known Drug Allergies Allergy Verified 07/24/20 17:59 Review of Systems Constitutional Constitutional: Denies fever(s) and Denies headache(s) ENT Ears, Nose, Mouth, and Throat: Denies headache(s) Cardiovascular Cardiovascular: Denies chest pain and Denies dyspnea Respiratory Respiratory: Denies dyspnea Gastrointestinal Gastrointestinal: Denies abdominal pain, Denies change in bowel habits, Denies nausea and Denies vomiting Genitourinary Genitourinary: Denies dysuria Genitourinary: Denies dysuria Musculoskeletal Musculoskeletal: Denies arthralgias and Denies myalgias Comments: Right leg swelling Integumentary/Breasts Skin/Breast: Denies lesions and Denies rash Neurologic Neurologic: Denies behavioral changes and Denies headache(s) Psychiatric Psychiatric: Denies behavioral changes Hematologic/Lymphatic On Anticoagulants: No Allergic/Immunologic Allergic/Immunologic: Denies urticaria Patient History Medical History Parotitis UTI (urinary tract infection) Social History Smoking Status: Current every day smoker Smoking Status: Current every day smoker tobacco type: cigarettes alcohol intake frequency: holidays/special occasions only Substance Use Type: does not use Exam Initial Vital Signs Initial Vital Signs: Vital Signs Temperature 98.4 F 07/24/20 17:57 Pulse Rate 91 H 07/24/20 17:57 Respiratory Rate 12 07/24/20 17:57 Blood Pressure 171/88 H 07/24/20 17:57 Pulse Oximetry 100 02/19/21 17:57 Const General: cooperative and comfortable Limitations: mental status not altered HENMT Head: normal to inspection and normocephalic Resp Effort & Inspection: normal respiratory effort Cardio Rate: regular rate Skin Lesions: no lesions Rashes: no rashes Neuro General: patient alert, patient awake and patient oriented x3 Cognition: normal cognition Speech: speech normal Extrem Other: Patient does have swelling to her right lower extremity. She is soft compartments. No tenderness. No change in skin. She flex and extend her knee and ankle without discomfort. Psych Appearance: grossly normal and well kempt Course Orders Ordered: ED Orders 07/24/20 20:06 perip venous low extrem rt Stat 07/24/20 20:18 Complete Blood Count AUTO DIFF Stat Comprehensive Metabolic Panel Stat Lipase Stat Vital Signs Vital signs: Vital Signs - 8 hr 07/24/20 20:52 07/24/20 21:13 Pulse Rate 91 H Respiratory Rate 18 Blood Pressure 143/77 H 146/71 H Pulse Oximetry 99 MDM - Extremity (Nontraumatic) Lab Data Result diagrams: 07/24/20 20:18 07/24/20 20:18 Labs: Lab Results 07/24/20 07/24/20 Range/Units 20:18 20:18 WBC 7.9 (4.5-11.0) X10^3/uL RBC 4.77 (4.0-5.2) X10^6/uL Hgb 13.7 (12.0-16.0) g/dL Hct 41.0 (36-46) % MCV 85.8 (80-100) fL MCH 28.8 (26-34) PG MCHC 33.5 (30-36) % RDW 14.3 (11.6-14.8) % Plt Count 251 (150-400) X10^3/uL Neut % (Auto) 61.9 (50-75) % Lymph % (Auto) 27.2 (25-40) % [place] % (Auto) 7.7 (3-14) % Eos % (Auto) 2.6 (2-4) % Baso % (Auto) 0.6 (0-2) % Neut # (Auto) 4900 (8834-6511) /uL Lymph # (Auto) 2200 (9372-0153) /uL [place] # (Auto) 600 (0-900) /uL Eos # (Auto) 200 (0-450) /uL Baso # (Auto) 0 (0-100) /uL Sodium 138 (137-145) mmol/L Potassium 3.9 (3.4-5.1) mmol/L Chloride 104 (98-107) mmol/L Carbon Dioxide 27 (22-32) mmol/L BUN 17 (7-17) mg/dL Creatinine 0.60 (0.52-1.04) mg/dL Estimated GFR > 60.0 (>60) mL/min BUN/Creatinine Ratio 28.3 H (6-22) Glucose 74 (70-100) mg/dL Calcium 9.4 (8.4-10.2) mg/dL Total Bilirubin 0.3 (0.2-1.3) mg/dL AST 33 (14-36) IU/L ALT 61 H (<35) IU/L Alkaline Phosphatase 119 (38-126) U/L Total Protein 7.6 (6.3-8.2) g/dL Albumin 4.3 (3.5-5.0) g/dL Globulin 3.3 (1.7-4.1) g/dL Albumin/Globulin Ratio 1.3 (1.0-2.8) Lipase 55 (23-300) U/L Imaging Data US - DVT: Radiologist's Impression: [address] [id number] ReportSigned Patient: Latanya Mancera R#: [id number]: 1960cct:[id number]/Sex: 60 / FDate of Service: 07/24/20Loc: EDAccession Number: [id number] Procedure: US perip venous low extrem rt Ordering Provider: Maicol Potter D.O. PROCEDURE: US PERIPH VENOUS LOW EXTREM RT INDICATIONS: eval for DVT TECHNIQUE: Real-time imaging, as well as color and pulse Doppler interrogation, were performed of the lower extremity deep veins from the inguinal ligament to the popliteal fossa. COMPARISON: None. FINDINGS: The common femoral, femoral and popliteal veins are normally compressible, and free of intraluminal thrombus. Color and pulse Doppler demonstrate normal phasic intraluminal flow. There is normal augmentation response to distal compression maneuver. IMPRESSION: No evidence of deep vein thrombosis involving the right lower extremity. Dictated by: Eulalia Newberry MD, PhD on 07/24/2020 at 21:06 Approved by: Eulalia Newberry MD, PhD on 07/24/2020 at 21:06 [facility] Narrative Medical decision making narrative: Ultrasound negative for DVT. Physical exam not consistent with cellulitis. No trauma. Feel we can hold on x-rays. She has no abdominal tenderness. No chest pain. No shortness of breath. She is not clinically in heart failure. Kidney functions unremarkable. Unsure the exact etiology however feel we can hold on further workup in the emergency department and have her follow-up with her primary doctor for further evaluation and treatment. She was given return precautions. We did discuss other conservative treatment to include compression stockings and keeping her leg elevated. She expressed understanding agreement. Discharge Plan Departure Patient Disposition: Home Clinical Impression: Leg edema, right Instructions: DI for Peripheral Edema-Unilateral Activity Restrictions/Additional Instructions: I recommend you contact your primary provider for a follow-up. If your symptoms worsen or you develop shortness of breath or any other redness or pain please return to the emergency department for further evaluation.
[2020-07-24 20:28] LABS: Add Manual Diff / Slide Review NO; Basophils Absolute Auto 0 /uL (0-100); Basophils Percent Auto 0.6 % (0-2); Eosinophils Absolute Auto 200 /uL (0-450); Eosinophils Percent Auto 2.6 % (2-4); Hemoglobin 13.7 g/dL (12.0-16.0); Lymphocytes Absolute Auto 2200 /uL (1100-4500); Lymphocytes Percent Auto 27.2 % (25-40); Mean Corpuscular HGB Conc 33.5 % (30-36); Mean Corpuscular Hemoglobin 28.8 PG (26-34); Mean Corpuscular Volume 85.8 fL (80-100); Monocytes Absolute Auto 600 /uL (0-900); Monocytes Percent Auto 7.7 % (3-14); Neutrophils Absolute Auto 4900 /uL (1500-7000); Neutrophils Percent Auto 61.9 % (50-75); Platelet Count 251 X10^3/uL (150-400); Red Blood Cell Count 4.77 X10^6/uL (4.0-5.2); Red Cell Distribution Width 14.3 % (11.6-14.8); White Blood Cell Count 7.9 X10^3/uL (4.5-11.0)
[2020-07-24 20:39] LABS: Alanine Aminotransferase 61 IU/L (<35); Albumin 4.3 g/dL (3.5-5.0); Albumin Globulin Ratio 1.3 (1.0-2.8); Alkaline Phosphatase 119 U/L (38-126); Aspartate Aminotransferase 33 IU/L (14-36); BUN Creatinine Ratio 28.3 (6-22); Bilirubin Total 0.3 mg/dL (0.2-1.3); Blood Urea Nitrogen 17 mg/dL (7-17); Calcium 9.4 mg/dL (8.4-10.2); Carbon Dioxide 27 mmol/L (22-32); Chloride 104 mmol/L (98-107); Estimated Glomerular Filt Rate > 60.0 mL/min (>60); Globulin 3.3 g/dL (1.7-4.1); Glucose 74 mg/dL (70-100); HEMOLYSIS 19 (0-50); Lipase 55 U/L (23-300); Potassium 3.9 mmol/L (3.4-5.1); Sodium 138 mmol/L (137-145); Total Protein 7.6 g/dL (6.3-8.2)
[2020-07-24 20:52] VITALS: BP 143/77
[2020-07-24 21:13] VITALS: BP 146/71; PULSE 91; RESP 18; O2SAT 99
== END 2020-07-24 21:13 | disposition home or self-care (01) ==
PROVIDERS: Emergency Provider Emergency Medicine
DX: R60.0 Localized edema (principal)
CPT/HCPCS: 36415; 80053; 83690; 85025; 93971; 99284

== ENCOUNTER → 2021-02-09 14:53 | Outpatient (CLI) | payer OTHER, SELFPAY ==
--- NOTE | 2021-02-09 | DI.ECHO.S_ITS ---
[facility] +---------+ : : [address] : [address] : : : : [id number] : : : : Phone: [phone]+ Echocardiogram Report + + :Name: AMY DUENAS Study Date: 02/09/2021 Height: 64 in : :[facility] ReadingLocation: Weight: 200 lb : : Gender: Female BSA: 2.0 m2 : :: 1960 Age: 60 yrs BP: 119/90 mmHg: :Reason For Study: SHORTNESS OF BREATH : :Ordering Physician: HARRIET, : :MARCELO Performed By: Yesenia Bullock : :Referring: MARCELO RESENDIZ : + + Interpretation Summary 1) Normal left ventricular thickness and size with low normal systolic function (EF 50-55%). 2) Normal right ventricular size and function. 3) No significant valvular abnormalities. 4) Pulmonary artery pressures cannot be estimated because of the lack of a measurable TR jet velocity but the IVC suggests a CVP of around 3 mmHg. 5) No prior Echo available for comparison. Procedure: A two-dimensional transthoracic echocardiogram with color flow and Doppler was performed. The study quality was technically adequate. There is no prior echocardiogram noted for this patient. Left Ventricle: The left ventricle is normal in size. Proximal septal thickening is noted. Left ventricular wall thickness is at the upper limits of normal. The ejection fraction is estimated to be 50-55%. Left ventricular systolic function is low normal. There are no focal wall motion abnormalities. Right Ventricle: The right ventricle is normal in size and function. Atria: The left atrial size is normal. Right atrial size is normal. There is no Doppler evidence for an interatrial shunt. Mitral Valve: The mitral valve is normal in structure and function. There is trace mitral regurgitation. Aortic Valve: The aortic valve is trileaflet. The aortic valve opens well. There is no aortic valve stenosis. No aortic regurgitation is present. Tricuspid Valve: The tricuspid valve is normal in structure and function. There is trace tricuspid regurgitation. Pulmonary artery pressures cannot be estimated because of the lack of a measurable TR jet velocity but the IVC suggests a CVP of around 3 mmHg. Pulmonic Valve: The pulmonic valve is not well seen, but is grossly normal. There is no pulmonic valvular regurgitation. Great Vessels: The aortic root is normal size. The dimensions of the ascending aorta are normal. The IVC is of normal diameter and collapses greater than 50% with a sniff. This suggests a low right atrial pressure of 3 mm Hg. Pericardium/ Pleura There is no pericardial effusion. There is no pleural effusion. MMode/2D Measurements & Calculations LVIDd: 4.3 cm LVOT diam: 2.1 cm LVIDs: 3.1 cm Ao root diam: 2.9 cm FS: 29.2 % asc Aorta Diam: 3.2 cm IVSd: 1.3 cm Ao Arch Diam (Prox Trans): 2.8 cm LVPWd: 1.0 cm LV clark. diameter/BSA (cm/m^2): 2.2 LV sys. diameter/BSA (cm/m^2): 1.6 LA A2 area: 16.3 cm2 RA long axis: 4.5 cm LA A4 area: 15.1 cm2 RA area: 14.6 cm2 LA length (vol): 4.8 cm RA vol: 40.1 ml LA vol: 44.1 ml RA : 20.5 ml/m2 LA vol index: 22.5 ml/m2 IVC diam: 1.2 cm RVD1 (basal): 3.1 cm TAPSE: 1.6 cm Doppler Measurements & Calculations Ao V2 max: 109.2 cm/sec LVOT Max Thong: 70.0 cm/sec Ao V2 mean: 78.3 cm/sec LV V1 max P.0 mmHg Ao max P.8 mmHg LV V1 VTI: 10.2 cm Ao mean P.7 mmHg THEODORE(I,D): 2.2 cm2 Ao V2 VTI: 15.2 cm THEODORE(V,D): 2.1 cm2 sev ratio: 0.67 THEODORE indexed to BSA (cm^2/m^2): 1.1 MV E max thong: 35.7 cm/sec PA V2 max: 72.5 cm/sec MV A max thong: 68.8 cm/sec PA V2 mean: 50.3 cm/sec MV E/A: 0.52 PA mean P.2 mmHg Med Peak E' Thong: 4.4 cm/sec PA pr(Accel): 39.6 mmHg E/E' med: 8.1 Lat Peak E' Thong: 4.0 cm/sec E/E' lat: 9.0 E/e' average: 8.5 MV dec time: 0.21 sec SVLVOT): 33.7 ml Reading Physician:04:30 PM
== END ==
PROVIDERS: PCP Student in an Organized Health Care Education/Training Program; Referring Provider Internal Medicine Cardiovascular Disease; Visit Provider Internal Medicine Cardiovascular Disease
DX: R06.02 Shortness of breath (principal)
CPT/HCPCS: 93306

== ENCOUNTER 2021-03-11 00:15 | Emergency (ER) | payer OTHER, SELFPAY ==
[2021-03-11] VITALS (10 sets, daily range): BP systolic 136–161; BP diastolic 75–108; PULSE 74–83; RESP 17–25; TEMP 36.8; O2SAT 97–100; BMI 34.3
--- NOTE | 2021-03-11 00:18 | ED_ITS ---
HPI - Abdominal Pain General Chief Complaint: Chest Pain Stated Complaint: pain in upper abdomen Time Seen by Provider: 03/11/21 00:17 History of Present Illness HPI narrative: 60F daily smoker presents with a chief complaint of generalized abdominal pain that started about 1 hour ago. She is not a great historian but states her pain was generalized if not worse in the epigastrium at 1st but it wraps around under her left breast at this point. She denies any obvious provocation or palliation. She is not dizzy nor weak or lightheaded but does complain of some nausea. She has had similar episodes in the past but denies any significant diagnosis, she states typically her symptoms will resolve after 5 minutes or so. She denies any new medications or diet. She denies exposure t o other ill persons. Related Data Previous Rx's Medication Instructions Recorded hydrocodone 5 mg-acetaminophen 325 1 tab PO Q4-6H PRN #10 tab 03/11/21 mg tablet ondansetron 4 mg disintegrating 4 mg PO TID-QID PRN #10 tab 03/11/21 tablet Allergies Allergy/AdvReac Type Severity Reaction Status Date / Time No Known Drug Allergies Allergy Verified 07/24/20 17:59 Review of Systems Review of Systems Narrative: GENERAL: Denies chills, fatigue, malaise, fever, sweats. HEENT: Denies sinus pain, ear pain, sore throat, difficulty swallowing, dizziness. RESPIRATORY: Denies dyspnea, cough, wheezing, hemoptysis, sputum. CARDIOVASCULAR: D see HPI GASTROINTESTINAL: See HPI : Denies dysuria, frequency, incontinence, hematuria, urinary retention. MUSCULOSKELETAL: denies weakness, joint pain, or bony pain SKIN: Denies rash, skin lesions, or other NEUROLOGIC: Denies weakness, headache, numbness, change in speech, confusion, seizures, incoordination. PSYCHIATRIC: No concerning psychosocial issues. 12 point review of systems is negative except for those stated above Patient History Medical History Parotitis UTI (urinary tract infection) Social History Smoking Status: Current every day smoker Smoking Status: Current every day smoker tobacco type: cigarettes alcohol intake frequency: holidays/special occasions only Substance Use Type: does not use Exam Narrative Exam Narrative: GENERAL: [] year old patient appears stated age. Well-developed patient, in mild distress. Clearly not feeling well. HEAD: Atraumatic. Normocephalic. EYES: Pupils equal round and reactive. Extraocular motions intact. No scleral icterus. No injection or drainage. ENT: Nose without bleeding, purulent drainage. Throat without erythema, tonsillar hypertrophy or exudate. Airway patent. NECK: Trachea midline. Non tender CARDIOVASCULAR: Regular rate and rhythm without murmurs, gallops, or rubs. RESPIRATORY: Clear to auscultation. Breath sounds equal bilaterally. No wheezes, rales, or rhonchi. GASTROINTESTINAL: Abdomen soft, general upper abdomen tenderness, no guarding, nondistended. EXTREMITIES: No edema or joint tenderness. BACK: Nontender without deformity or crepitance. No flank tenderness. NEURO: AOx3. 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 Discontinued Medications Hydrocodone Bitart/Acetaminophen (Hydrocodone/Acet 5/325 Prepack) 1 bottle MISC SEEINSTR ONE Stop: 03/11/21 01:52 Last Admin: 03/11/21 02:04 Dose: 1 bottle Documented by: Sodium Chloride (Normal Saline 0.9%) 1,000 mls @ 1,000 mls/hr IV BOLUS ONE Stop: 03/11/21 01:22 Last Admin: 03/11/21 00:38 Dose: 1,000 mls/hr Documented by: EVAN Ondansetron HCl (Ondansetron 4 Mg/2 Ml Inj) 4 mg IV NOW ONE Stop: 03/11/21 00:24 Last Admin: 03/11/21 00:38 Dose: 4 mg Documented by: EVAN Ondansetron HCl (Ondansetron 4 Mg Odt Prepack) 1 bottle MISC SEEINSTR ONE Stop: 03/11/21 01:52 Last Admin: 03/11/21 02:05 Dose: 1 bottle Documented by: Reevaluation(s) Reevaluation #1: Patient feeling much better, no longer having pain Time: 01:39 Vital Signs Vital signs: Vital Signs - 8 hr 03/11/21 00:23 03/11/21 00:25 03/11/21 00:30 Temperature 98.2 F Pulse Rate 80 80 75 Respiratory Rate 21 17 19 Blood Pressure 161/99 H Pulse Oximetry 97 99 100 03/11/21 00:32 03/11/21 00:44 03/11/21 00:46 Temperature Pulse Rate 74 83 80 Respiratory Rate 19 21 19 Blood Pressure 147/75 H 151/108 H 136/75 Pulse Oximetry 98 98 99 03/11/21 01:00 03/11/21 01:01 03/11/21 01:30 Temperature Pulse Rate 80 82 77 Respiratory Rate 25 H 24 18 Blood Pressure 158/79 H Pulse Oximetry 98 97 99 03/11/21 01:31 Temperature Pulse Rate 78 Respiratory Rate 25 H Blood Pressure 154/77 H Pulse Oximetry 98 MDM - Abdominal Pain Lab Data Result diagrams: 03/11/21 00:30 03/11/21 00:30 Labs: Lab Results 03/11/21 03/11/21 Range/Units 00:30 00:30 WBC 7.8 (4.5-11.0) X10^3/uL RBC 4.59 (4.0-5.2) X10^6/uL Hgb 13.0 (12.0-16.0) g/dL Hct 39.2 (36-46) % MCV 85.4 (80-100) fL MCH 28.4 (26-34) PG MCHC 33.2 (30-36) % RDW 14.1 (11.6-14.8) % Plt Count 255 (150-400) X10^3/uL Neut % (Auto) 54.3 (50-75) % Lymph % (Auto) 33.1 (25-40) % [place] % (Auto) 9.5 (3-14) % Eos % (Auto) 1.9 L (2-4) % Baso % (Auto) 1.2 (0-2) % Neut # (Auto) 4200 (4813-8424) /uL Lymph # (Auto) 2600 (0338-1728) /uL [place] # (Auto) 700 (0-900) /uL Eos # (Auto) 100 (0-450) /uL Baso # (Auto) 100 (0-100) /uL Sodium 142 (137-145) mmol/L Potassium 3.6 (3.4-5.1) mmol/L Chloride 105 (98-107) mmol/L Carbon Dioxide 32 (22-32) mmol/L BUN 20 H (7-17) mg/dL Creatinine 0.71 (0.52-1.04) mg/dL Estimated GFR > 60.0 (>60) mL/min BUN/Creatinine Ratio 28.2 H (6-22) Glucose 94 (70-100) mg/dL Calcium 9.5 (8.4-10.2) mg/dL Total Bilirubin 0.4 (0.2-1.3) mg/dL AST 120 H (14-36) IU/L ALT 62 H (<35) IU/L Alkaline Phosphatase 101 (38-126) U/L Total Creatine Kinase 71 (30-135) U/L CK-MB (CK-2) TNP CK-MB (CK-2) Rel Index TNP Troponin I < 0.012 (0.01-0.034) ng/mL Total Protein 7.2 (6.3-8.2) g/dL Albumin 4.1 (3.5-5.0) g/dL Globulin 3.1 (1.7-4.1) g/dL Albumin/Globulin Ratio 1.3 (1.0-2.8) Lipase 74 (23-300) U/L Imaging Data Chest x-ray: Radiologist's Impression: [address] [address] XRay Report Signed Patient: Latanya Mancera MR#: [id number] : 1960 Acct:[id number] Age/Sex: 60 / F Date of Service: 03/11/21 Loc: ED Accession Number: [id number] ?? Procedure: XR acute abdomen series Ordering Provider: Isai Gooden D.O. PROCEDURE:? XR ACUTE ABDOMEN SERIES ? INDICATIONS:? Abdominal pain, chest pain ? TECHNIQUE:? One view chest and two views of the abdomen were acquired.? ? COMPARISON:? None. ? FINDINGS:? ? Surgical changes and devices:? None.? ? Chest:? Lungs are clear.? Heart size is normal.? No pleural effusions.? No pneumoperitoneum.? ? Abdomen:? Bowel gas pattern is normal.? No suspicious calcifications.? Visualized solid organ contours appear normal.? ? Bones:? No suspicious bony lesions.? ? IMPRESSION:? No acute cardiopulmonary process demonstrated radiographically. ? ? Dictated by: Yobani Darby M.D. on 03/11/2021 at 0:52 ? ? Approved by: Yobani Darby M.D. on 03/11/2021 at 0:54 ? MDM Narrative Medical decision making narrative: Patient with epigastric pain and radiation to the back resolved without intervention. Pain is well controlled, patient tolerating orals. Labs reassuring. US shows stones, but no signs of ch oleycystitis Discharge Plan Departure Patient Disposition: Home Clinical Impression: Biliary colic Instructions: Gallstones Activity Restrictions/Additional Instructions: *You have been diagnosed with [abdominal pain due to gallbladder disease *What to do: *Please continue to take your regular medications as directed. [x ] New medication prescriptions sent to your pharmacy: [ [facility]] [ ] New medication written as a paper prescription [ ] No new medications given *Please follow up with [facility] in 2-3 days, call for an appointment. Let them know you were seen in the Emergency Department and that we ask that you be seen in follow up. We will electronically transmit a record of today's note if your PCP is in our system *Please avoid fatty foods and consider a clear liquid diet for the next 24 hours. *Return to Emergency Department if you should have any new, worsening or concerning symptoms, such as [fever greater than 101 F, shaking chills, worsening pain, persistent vomiting or other bothersome symptoms] Prescriptions: New hydrocodone-acetaminophen 5-325 mg tablet 1 tab PO Q4-6H PRN (Reason: pain) Qty: 10 RF: 0 ondansetron 4 mg tablet,disintegrating 4 mg PO TID-QID PRN (Reason: nausea and vomiting) Qty: 10 RF: 0 Referrals: Praveen Felix MD [Physician] - Kavon Valdez MD [Primary Care Provider] -
--- NOTE | 2021-03-11 00:23 | DI.RAD.S_ITS ---
PROCEDURE: XR ACUTE ABDOMEN SERIES INDICATIONS: Abdominal pain, chest pain TECHNIQUE: One view chest and two views of the abdomen were acquired. COMPARISON: None. FINDINGS: Surgical changes and devices: None. Chest: Lungs are clear. Heart size is normal. No pleural effusions. No pneumoperitoneum. Abdomen: Bowel gas pattern is normal. No suspicious calcifications. Visualized solid organ contours appear normal. Bones: No suspicious bony lesions. IMPRESSION: No acute cardiopulmonary process demonstrated radiographically. Dictated by: Yobani Darby M.D. on 03/11/2021 at 0:52 Approved by: Yobnai Darby M.D. on 03/11/2021 at 0:54
--- NOTE | 2021-03-11 00:24 | DI.US.S_ITS ---
PROCEDURE: US ABDOMEN LIMITED INDICATIONS: EPIGASTRIC PAIN RADIATING TO BACK TECHNIQUE: Real-time focused scanning was performed of the abdomen, with image documentation. COMPARISON: None. FINDINGS: The gallbladder is tightly contracted around multiple gallstones. Gallbladder wall thickness is normal. No pericholecystic fluid. Staff Internist Office Based Only reports a positive sonographic [place] sign. Hepatic steatosis. No intrahepatic or extrahepatic biliary ductal dilatation. Visualized portions of the pancreas are normal. IMPRESSION: Contracted gallbladder with multiple gallstones. No findings of cholecystitis. Positive sonographic Colorado's sign. Hepatic steatosis. Dictated by: Yobani Darby M.D. on 03/11/2021 at 1:25 Approved by: Yobani Darby M.D. on 03/11/2021 at 1:26
[2021-03-11] MEDS: ONDANSETRON 4 MG/2 ML INJ IV (00:38)
[2021-03-11] MEDS: SODIUM CHLORIDE 0.9% 1,000 ML 1000 ML IV (00:38)
[2021-03-11 00:52] LABS: Add Manual Diff / Slide Review NO; Alanine Aminotransferase 62 IU/L (<35); Albumin 4.1 g/dL (3.5-5.0); Albumin Globulin Ratio 1.3 (1.0-2.8); Alkaline Phosphatase 101 U/L (38-126); Aspartate Aminotransferase 120 IU/L (14-36); BUN Creatinine Ratio 28.2 (6-22); Basophils Absolute Auto 100 /uL (0-100); Basophils Percent Auto 1.2 % (0-2); Bilirubin Total 0.4 mg/dL (0.2-1.3); Blood Urea Nitrogen 20 mg/dL (7-17); Calcium 9.5 mg/dL (8.4-10.2); Carbon Dioxide 32 mmol/L (22-32); Chloride 105 mmol/L (98-107); Creatine Kinase 71 U/L (30-135); Eosinophils Absolute Auto 100 /uL (0-450); Eosinophils Percent Auto 1.9 % (2-4); Estimated Glomerular Filt Rate > 60.0 mL/min (>60); Globulin 3.1 g/dL (1.7-4.1); Glucose 94 mg/dL (70-100); HEMOLYSIS < 15 (0-50); Hematocrit 39.2 % (36-46); Lipase 74 U/L (23-300); Lymphocytes Absolute Auto 2600 /uL (1100-4500); Lymphocytes Percent Auto 33.1 % (25-40); Mean Corpuscular HGB Conc 33.2 % (30-36); Mean Corpuscular Hemoglobin 28.4 PG (26-34); Mean Corpuscular Volume 85.4 fL (80-100); Monocytes Absolute Auto 700 /uL (0-900); Monocytes Percent Auto 9.5 % (3-14); Neutrophils Absolute Auto 4200 /uL (1500-7000); Neutrophils Percent Auto 54.3 % (50-75); Platelet Count 255 X10^3/uL (150-400); Potassium 3.6 mmol/L (3.4-5.1); Red Blood Cell Count 4.59 X10^6/uL (4.0-5.2); Red Cell Distribution Width 14.1 % (11.6-14.8); Sodium 142 mmol/L (137-145); Total Protein 7.2 g/dL (6.3-8.2); White Blood Cell Count 7.8 X10^3/uL (4.5-11.0)
[2021-03-11 01:04] LABS: Troponin I < 0.012 ng/mL (0.01-0.034)
[2021-03-11] MEDS: HYDROCODONE/ACET 5/325 PREPACK 1 BOTTLE MISC (02:04)
[2021-03-11] MEDS: ONDANSETRON 4 MG ODT PREPACK 1 BOTTLE MISC (02:05)
[2021-03-11 02:34] LABS: COVID19 - ADMIT (NP swab/PCR) Negative (Negative)
== END 2021-03-11 02:14 | disposition home or self-care (01) ==
PROVIDERS: Emergency Provider Emergency Medicine; PCP Internal Medicine Critical Care Medicine
DX: K80.50 Calculus of bile duct without cholangitis or cholecystitis without obstruction (principal); R07.9 Chest pain, unspecified; Z20.822 Contact with and (suspected) exposure to COVID-19
CPT/HCPCS: 36415; 74022; 76705; 80053; 82550; 83690; 84484; 85025; 87635; 93005; 96361; 96374; 99284; C9803; J2405

== ENCOUNTER 2021-11-02 05:57 | Day surgery (SDC) | payer OTHER, SELFPAY ==
[2021-10-28 13:50] VITALS: BMI 34.3
[2021-11-02] VITALS (10 sets, daily range): BP systolic 101–181; BP diastolic 55–123; PULSE 67–106; RESP 13–22; TEMP 36.2–37.2; O2SAT 94–98; BMI 34.3
[2021-11-02] MEDS: PREGABALIN 75 MG CAPSULE PO (06:54)
[2021-11-02] MEDS: CELECOXIB 200 MG CAPSULE PO (06:54)
[2021-11-02] MEDS: ACETAMINOPHEN 325 MG TABLET 975 MG PO (06:55)
[2021-11-02] MEDS: VANCOMYCIN 1,000 MG/200 ML PIGGYBACK 200 MG IV (07:02)
[2021-11-02] MEDS: LACTATED RINGERS 1,000 ML 42 ML IV ×3 (07:08→09:23)
[2021-11-02 07:33] LABS: COVID19 -Nasal RAPID Negative (Negative)
--- NOTE | 2021-11-02 07:44 | PM.PREOP ---
Pre-operative Note COVID-19 COVID-19 status: Negative Interval Note History & Physical reviewed/Exam performed by Physician: Yes Changes to H&P: No
--- NOTE | 2021-11-02 07:45 | PM.OP.1 ---
Operative Date/Time/Diagnoses Date of procedure: 11/02/21 Time of procedure: 07:55 Pre-op diagnosis: right hip oa Post-op diagnosis: same Procedure & Clinicians Procedure: Right total hip arthroplasty Same procedure as scheduled: Yes Indications: The patient has had progressively worsening right hip pain with radiographic changes consistent with arthritis. Non-operative management has failed and the patient has requested total hip replacement. The risks, benefits and alternatives to surgery were discussed with the patient prior to proceeding. Risks discussed included, but were not limited to, failure to relieve pain, leg length discrepancy, dislocation, stiffness, infection, nerve damage, deep venous thrombosis, pulmonary embolism, stroke, coma, heart attack, permanent paralysis and , as well as the potential need for eventual revision of the prosthetic. Surgeon: Myranda Lucas [employer]otional Sales: Nidhi Campoverde Anesthesia Type: General and Spinal Operative Notes Findings: Severe right hip osteoarthritis, good stability, soft bone Closure Type: primary Specimen(s): none sent Prosthetic devices, grafts, tissues, transplants, or devices: Lucas and nephew size 50 R3 cup, 50 x 32 mm neutral liner, size 6 standard offset anthology, 32 by -3 Oxinium femoral head Applied: drain(s) Estimated Blood Loss (mL): 250 Blood products transfused: none Procedure in detail: The patient was seen in the pre-operative area, where the patient identified the right hip as the operative site and this was marked with my initials. The patient received pre-operative antibiotics and was taken to the operating room and placed on the operative table in the left lateral decubitus position after satisfactory anesthesia. A multimedia journalist out was performed. The right leg was prepared from the ankle to the iliac crest with ChloroPrep in the usual fashion and draped through sterile drapes. The hip was approached through an approximately 20 cm incision centered over the greater trochanter and curving gently posteriorly as it went proximally. This was carried sharply to the fascia anca, which was divided and retracted with a self retaining retractor. The trochanteric bursa was excised with care being taken to avoid the sciatic nerve, which was identified and protected throughout the case. The short external rotators were incised and the capsulomuscular flap was raised and tagged for later repair. The hip was dislocated, and a femoral neck osteotomy performed approximately 15 mm above the lesser trochanter. Retractors were placed around the femur. The canal was opened with a box cutting osteotome, followed by a T handled reamer and a lateralizing reamer. The chili pepper broach was then used, followed by sequential broaching until there was good stability of the broach in the femur. Retractors were placed to expose the acetabulum. The labrum and central soft tissues were removed. Reaming was performed initially going up in 2 mm increments, then 1 mm increments until good bite was obtained with an odd sized reamer. The cup 1 mm larger than the last reamer was then inserted using the appropriate anteversion guides. A trial neutral liner was placed. The broach was placed in the canal. A trial head and neck were then placed and the hip relocated and checked for leg length and stability. An intraoperative film confirmed the component position and no evidence of fracture. The patient was stable in the position of sleep, of squatting, and could be put through a range of motion with 45 degrees internal rotation without dislocation. At 90 degrees flexion, internal rotation to 70 was possible before dislocation. This was felt to be satisfactory and the appropriate components were opened, and the trials were removed. The acetabular liner was impacted into position. The final stem was then impacted into the prepared femoral canal. A brief Betadine soak was performed while trialing with head options. The hip was meticulously irrigated with normal saline. Finally the femoral head was impacted onto the stem. The acetabulum was cleared of all material and the hip relocated one final time. The capsulomuscular flap was then repaired to the greater trochanter though an awl hole using the tag sutures. The short external rotators were repaired with a nonabsorbable suture. A deep drain was placed and brought out anteriorly. The fascia anca was closed with Vicryl. The subcutaneous layer was closed with barbed sutures and SteriStrips. An Aquacel Ag dressing was applied and the patient was taken to recovery having tolerated the procedure well. Complications: none Post-operative Condition: stable Disposition: Acute Care Plan for aftercare: The patient will be maintained on a standard total hip replacement protocol with weight bearing as tolerated and posterior hip precautions. The patient will receive Aspirin and sequential compression devices for DVT prophylaxis. The patient will be discharged home when safe for the home environment.
[2021-11-02] MEDS: CEFAZOLIN 2 GM/20 ML SYRINGE IV ×2 (08:05→16:12)
[2021-11-02] MEDS: TRANEXAMIC ACID 1,000 MG VIAL 1000 MG INJ ×2 (08:15→10:10)
--- NOTE | 2021-11-02 08:35 | SUR.OPER ---
Lateral on padded OR bed. Gel axillary roll. Arms secured on padded armboard with pillow supporting top arm. Padded hip positioner braces x4 - anterior and posterior chest and pelvis. Additional gel pad used anterior pelvis. Gel pad under bottom leg from knee to foot and secured with tape over sheet. Positioning performed and approved by Dr. Lucas.
[2021-11-02] MEDS: BUPIVACAINE 0.25% (PF) 60 ML, EPINEPHrine 0.3 MG INJ (08:44)
[2021-11-02] MEDS: BUPIVACAINE LIPOSOME 266 MG/20 ML VIAL INJ (10:00)
--- NOTE | 2021-11-02 11:00 | DI.RAD.S_ITS ---
PROCEDURE: XR HIP W PEL IF DONE RT 2V INDICATIONS: RIGHT TOTAL HIP TECHNIQUE: AP pelvis and lateral view of the right hip acquired. COMPARISON: None. FINDINGS: Bones: Patient is status post right hip arthroplasty, with hardware components in expected positions. The hip joint appears congruent. The visualized bony structures appear intact. Moderate osteoarthritic degenerative changes noted in the left hip. Soft tissues: Overlying postoperative changes are noted. No suspicious soft tissue densities. IMPRESSION: Expected postsurgical change for right hip arthroplasty. Dictated by: Eulalia Newberry MD, PhD on 11/02/2021 at 11:48 Approved by: Eulalia Newberry MD, PhD on 11/02/2021 at 11:48
--- NOTE | 2021-11-02 12:00 | DI.RAD.S_ITS ---
PROCEDURE: XR PELVIS 1-2V INDICATIONS: prosthesis placement RT TECHNIQUE: Intra-operative view of the pelvis and hip acquired. COMPARISON: None. FINDINGS: Bones: Intraoperative devices prior to placement of arthroplasty prostheses are in expected positions. No fractures or suspicious bony lesions. Soft tissues: Overlying surgical retractors are present, along with other intraoperative changes. IMPRESSION: Single intraoperative view of a right hip arthroplasty. Dictated by: Jayleen Benoit M.D. on 11/02/2021 at 10:52 Approved by: Jayleen Benoit M.D. on 11/02/2021 at 10:53
[2021-11-02] MEDS: ACETAMINOPHEN 325 MG TABLET 650 MG PO ×2 (12:01→17:30)
[2021-11-02] MEDS: LACTATED RINGERS 1,000 ML 125 ML IV ×2 (12:01→20:26)
[2021-11-02] MEDS: IBUPROFEN 400 MG TABLET PO ×2 (12:01→17:30)
--- NOTE | 2021-11-02 12:12 | PC.NURSE ---
Patient brought up from PACU, oriented to room and call light. VSS. Hemovac in place, intact. ROSEANN dressing in place CDI. Patient denies pain. Call light within reach. Continue to monitor.
--- NOTE | 2021-11-02 13:45 | PT.IIE ---
Current Diagnoses Unilateral primary osteoarthritis, right hip (11/02/21) Pain in right hip (11/02/21) Surgery Performed Operation Date: 11/02/21 07:45 Actual Procedures p Total Hip Arthroplasty(Right) - Myranda Lucsa MD Medical History (Last Reviewed 11/02/21 @ 07:17 by Antony Treadwell RN) Anesthesia Hypertension Obesity TERRANCE on CPAP Parotitis UTI (urinary tract infection) Physical Therapy Inpatient Evaluation/Re-Eval M1 PT/OT-IP Prior Functional Status Start: 11/02/21 15:04 Freq: NEEDED Status: Active Protocol: Document 11/02/21 13:45 AB (Rec: 11/02/21 15:21 AB [id number]) Medical Review Prior Functional Status Medical History Reviewed Yes Communication able to make needs known Mobility and Gait pt stated that she is independent with all mobilities and ambulation without AD Social History Household Members spouse Living Arrangements House Number of Floors (Floors) One Floor Number of Stairs To Enter/Railing? ramp to enter Home Environment High Toilet,Walk in Shower Home Equipment Front Wheel Walker,Raised Toilet Seat w/Armrests,Shower Seat without Backrest,Hand Held Shower Additional Social History Comment has a tripod cane pt stated that her sister will be staying with her for ~ 4 days to assist her and then drive her to [place] where she will stay at her other sister' s house and that sister will then assist her. M2 PT-IP Current Condition Start: 11/02/21 15:04 Freq: NEEDED Status: Active Protocol: Document 11/02/21 13:45 AB (Rec: 11/02/21 15:21 AB [id number]) Physical Therapy Current Condition Current Condition Evaluation Date 11/02/21 Treatment Diagnosis s/p R LARISSA posterior approach; difficulty in walking Onset Date 11/02/21 M3 PT-IP Subjective Start: 11/02/21 15:04 Freq: NEEDED Status: Active Protocol: Document 11/02/21 13:45 AB (Rec: 11/02/21 15:21 AB [id number]) Subjective Physical Therapy Visit Type Type Initial Evaluation Visit Start Time 13:45 Visit Stop Time 14:30 Total Visit Minutes 45 Number of MAINTAINABILITY ENGINEER Visits 0 Physical Therapy Visit Comments Patient Comments agreeable to do PT Therapy Pain Assessment Pain Present Pain Present Denied Pain M4 PT-IP Mobility and Gait Start: 11/02/21 15:04 Freq: NEEDED Status: Active Protocol: Document 11/02/21 13:45 AB (Rec: 11/02/21 15:21 AB [id number]) PT-Bed Mobility Assessment Supine to Sit Supine to Sit Standby Assistance Sit to Supine Sit to Supine Minimal Assistance PT-Transfer Assessment Sit to and From Stand Sit to and from Stand Minimal Assistance,1 Person Assistance,Use of Upper Extremities Equipment Transfer Assistive Device Gait Belt,Front Wheeled Walker Orthotic/Prosthetic Devices or Brace: No Transfers Transfer Destination Toilet Transfer Technique ambulated Transfer Ability Level of Assist Minimal Assistance,Use of Upper Extremities Comments Mobility Comments educated pt on posterior hip precautions and pt able to recall. BP supine: 135/77 completed supine to sit SBA. able to sit on EOB SBA. c/o slight dizziness. BP: 155/78. pt requested to use the toilet. completed sit to stand min A and cues for LE positioning/precaution. ambulated using FWW to the toilet min A ~ 15 ft. completed sit to stand from the toilet using grab bar min A and ambulated out of the toilet towards the bed using FWW. completed sit to supine min A with LE. positioned pt in bed. call light and table placed within reach. Pt's spouse in room earlier prior to mobility but left. spouse informed her spouse that pain will be there for 3 days and afterwards no pain. spouse stated that this info came from his friend that had a hip surgery. informed pt that pain will be in there for a while and longer than 3 days but pain will slowly decrease. spouse also stated that pt needs a brace for pt not to have a hip dislocation. informed spouse that it is not necessary at this time. Pt understood that she does not need a brace and pain will be in there for a while. caregiver training set up at 10 am tomorrow. Gait Assessment Gait Gait Assistance Required: Minimum Assistance Distance (Feet) 15 Able to Maintain Weight Bearing Status Yes During Gait Assistive Devices Assistive Device Gait Belt,Front Wheeled Walker Orthotic/Prosthetic Devices or Brace: No Gait Deviations General Gait Pattern Decreased Stride Length, Decreased Feet Clearance Factors Limiting Gait Function Factors Limiting Gait Function Decreased Activity Tolerance, Decreased Strength,Poor Balance,Poor Safety Awareness PT-Balance Assessment Sitting Balance and Reactions Static Sitting Balance Ability Good Dynamic Sitting Balance Ability Good Standing Balance and Reactions Static Standing Balance Ability Fair Dynamic Standing Balance Ability Fair Device Used FWW M5 PT-IP Objective Assessments Start: 11/02/21 15:04 Freq: NEEDED Status: Active Protocol: Document 11/02/21 13:45 AB (Rec: 11/02/21 15:21 AB [id number]) Orientation Orientation/Cognition Level of Alertness Alert Orientation Name,Place,Situation Language Function Ability No Deficits Noted Safety Awareness Decreased Safety Awareness Gross Range of Motion Lower Extremity ROM Assessment Within Functional Limits Strength Lower Extremity Strength Assessment Right Impaired Hip 3+/5 Knee 4-/5 Sensation Assessment Sensation Gross Sensation WNL Muscle Tone Muscle Tone WNL Yes M6 PT-IP Treatment Start: 11/02/21 15:04 Freq: NEEDED Status: Active Protocol: Document 11/02/21 13:45 AB (Rec: 11/02/21 15:21 AB [id number]) Physical Therapy Treatment Education Education Provided Precautions,Weight Bearing Status,Post-Op Packet,Safety M7 PT-IP Assessment and Plan Start: 11/02/21 15:04 Freq: NEEDED Status: Active Protocol: Document 11/02/21 13:45 AB (Rec: 11/02/21 15:21 AB [id number]) PT Summary Assessment and Plan Potential Rehabilitation Potential Good Status of Condition at Evaluation Stable Summary Impairments Pain,ROM,Strength,Balance, Coordination,Sensation,Tone, Cognition,Bed Mobility, Transfers,Gait,Activity Tolerance Assessment Summary Pt s/p R LARISSA posterior approach and just had surgery today. pt requiring min A at this time but will likely progress during hospital stay. Caregiver training set up for tomorrow with pt's sister at 10 am. will continue to assess progress. Goals Bed Mobility Goal Independent Transfer Goal Independent,Front Wheeled Walker Gait Goal Independent,Front Wheel Walker Gait Distance 200 Days to Meet Goals 5 Frequency of Treatment Frequency Of Treatment Twice a Day Treatment Plan Physical Therapy Treatment Plan Bed Mobility Training,Transfer Training,Gait Training, Therapeutic Exercise,Balance Retraining,Post Op Education, Discharge Planning,Hot or Cold Pack,Neuromuscular Re-ed, Coordination Retraining,Manual Therapy Precautions Posterior Hip Precautions No Hip Flexion > 90 degrees,No Hip Internal Rotation,No Hip Adduction Weight Bearing Status Weight Bearing Status Weight Bear as Tolerated Allowed Weight Bearing Amount (enter % RLE WBAT or #) (%) Recommendations To Nursing Amount of Assist Needed 1 Person Assist Discharge Recommendations PT Discharge Recommendations Home with Assistance, Outpatient PT Transportation Needs at Discharge Private Vehicle
[2021-11-02] MEDS: DOCUSATE 100 MG CAPSULE PO (21:01)
[2021-11-02] MEDS: OXYCODONE IR 5 MG TABLET PO (21:01)
[2021-11-02] MEDS: ASPIRIN EC 81 MG TABLET PO (21:01)
[2021-11-02] MEDS: LIDOCAINE PATCH 1 EACH ADH..PATCH TOP (21:02)
[2021-11-03 00:15] VITALS: BP 110/62; PULSE 88; RESP 16; TEMP 36.7; O2SAT 96
[2021-11-03] MEDS: CEFAZOLIN 2 GM/20 ML SYRINGE IV (00:41)
[2021-11-03] MEDS: ACETAMINOPHEN 325 MG TABLET 650 MG PO ×3 (00:41→11:31)
[2021-11-03] MEDS: IBUPROFEN 400 MG TABLET PO ×3 (00:47→11:31)
[2021-11-03 04:00] VITALS: BP 113/65; PULSE 87; RESP 17; TEMP 36.7; O2SAT 99
[2021-11-03] MEDS: OXYCODONE IR 10 MG TABLET PO ×3 (05:14→11:31)
[2021-11-03 06:14] LABS: Hematocrit 29.5 % (36-46); Hemoglobin 10.2 g/dL (12.0-16.0)
[2021-11-03 08:15] VITALS: BP 133/75; PULSE 81; RESP 20; TEMP 36.8; O2SAT 99
--- NOTE | 2021-11-03 08:32 | PM.DS.1 ---
History of Present Illness History of Present Illness Date Patient Seen: 11/03/21 Time Patient Seen: 08:32 Chief complaint: Right hip pain s/p right LARISSA Narrative: Patient is complaining of moderate right hip pain this morning. She rates it a 6/10. She denies any new numbness or tingling. Overall she is doing well and hopefully be discharged home today Discharge Providers Provider Discharge Date: 11/03/21 Primary care physician: Doctor Aman MD Consults: 11/02/21 06:30 Consult to Anesthesiology Routine Comment: Consulting Provider: Anesthesiologist Reason for consultation: Regional block for post operative pain control 11/02/21 07:14 Consult to Respiratory Therapy Evaluate & Treat Comment: Physician Instructions: Evaluate and treat 11/02/21 10:59 Consult to Discharge Planning Routine Comment: Consult to Physical Therapy Evaluate & Treat Comment: Physician Instructions: post op LARISSA protocol Consult to Respiratory Therapy Evaluate & Treat Comment: Physician Instructions: Evaluate and treat Discharge provider: Nidhi Campoverde PA-C Summary Hospital Course Discharge Diagnosis: Right hip OA -acute blood loss anemia, postoperative and asymptomatic Hospital Course: Operative Date/Time/Diagnoses Date of procedure: 11/02/21 Time of procedure: 07:55 Procedure & Clinicians Procedure: Right total hip arthroplasty Same procedure as scheduled: Yes Indications: The patient has had progressively worsening right hip pain with radiographic changes consistent with arthritis. Non-operative management has failed and the patient has requested total hip replacement. The risks, benefits and alternatives to surgery were discussed with the patient prior to proceeding. Risks discussed included, but were not limited to, failure to relieve pain, leg length discrepancy, dislocation, stiffness, infection, nerve damage, deep venous thrombosis, pulmonary embolism, stroke, coma, heart attack, permanent paralysis and , as well as the potential need for eventual revision of the prosthetic. Surgeon: Myranda Lucas Pump And Blower Operator: Nidhi Campoverde Anesthesia Type: General and Spinal Operative Notes Findings: Severe right hip osteoarthritis, good stability, soft bone Closure Type: primary Specimen(s): none sent Prosthetic devices, grafts, tissues, transplants, or devices: Lucas and nephew size 50 R3 cup, 50 x 32 mm neutral liner, size 6 standard offset anthology, 32 by -3 Oxinium femoral head Applied: drain(s) Estimated Blood Loss (mL): 250 Blood products transfused: none Status at Discharge Cognitive/behavioral status at discharge: oriented Functional status at discharge: uses cane/walker Overall status at discharge: patient is progressing back to baseline Exam Vital Signs (past 8 hours): - 11/03/21 04:00 Temperature 98.1 F Pulse Rate 87 Respiratory Rate 17 Blood Pressure 113/65 Pulse Oximetry 99 Oxygen Delivery Method Room Air Oxygen Flow Rate 0 Narrative Exam Narrative: Pleasant 61-year-old female, resting comfortably in bed, no acute distress. Dressing is clean, dry, intact. Bilateral lower extremity: Motor functions are grossly intact, sensation is grossly intact to light touch, calves are soft and nontender to palpation. Objective Labs Result Diagrams: 11/03/21 05:47 Labs: Laboratory Results - last 24 hr 11/03/21 05:47 Hgb 10.2 L Hct 29.5 L PFSH Medical History Anesthesia Hypertension Obesity TERRANCE on CPAP Parotitis UTI (urinary tract infection) Surgical History Hx of dilation and curettage Family History Father Hypertension Diabetes mellitus Stroke Heart disease Mother Cancer Gallstones Social History household members: spouse Smoking Status: Current some day smoker alcohol intake: current Discharge Assessment & Plan Assessment and Plan Assessment: -stable status post right total hip arthroplasty, posterior approach -acute blood loss anemia, mild, asymptomatic Plan of Treatment: -mobilize with PT. Weightbearing as tolerated with front wheel walker. Maintain posterior hip precautions x6 weeks -aspirin 81 mg b.i.d. x6 weeks for DVT prophylaxis -continue with multimodal pain management -DC Hemovac today -DC home today once cleared by PT Discharge Plan Discharge Plan Patient Disposition: Home Discharge orders & Medications Discharge Orders: Discharge (Order); Ordered 11/03/21 Ordered By: Nidhi Campoverde Prescriptions: New acetaminophen 500 mg capsule 500 mg PO Q4H MDD Max 3000 mg a day PRN (Reason: fever or pain) Qty: 90 0RF aspirin 81 mg Tablet,Delayed Release (Dr/Ec) 81 mg PO BID 42 Days Qty: 84 0RF Rx Instructions: Prevent blood clots docusate sodium 100 mg Capsule 100 mg PO BID PRN (Reason: Constipation from narcotic pain meds) Qty: 20 0RF ibuprofen 400 mg Tablet 400 mg PO Q4H MDD Max 2400 mg per day PRN (Reason: Pain/inflammation) Qty: 90 0RF oxycodone 5 mg Tablet See Rx Instructions .ROUTE .COMPLEX PRN (Reason: Pain, Moderate (4-6)) Qty: 42 0RF Rx Instructions: take 1-2 tablets by mouth every 4 hours as needed for moderate-severe pain polyethylene glycol 3350 17 gram Powder In Packet 17 g PO DAILY PRN (Reason: Constipation) Qty: 14 0RF Continued losartan 50 mg Tablet 50 mg PO DAILY 0RF lidocaine 5 % Adhesive Patch,Medicated 2 - 3 patch TOPICAL BEDTIME 0RF Rx Instructions: leave on most painful area for up to 12 hrs varenicline [Chantix] 1 mg Tablet 1 mg PO BID 0RF Discontinued acetaminophen 500 mg Tablet 1,000 mg PO BID 0RF ibuprofen 200 mg Tablet 800 mg PO BID 0RF Follow up/Referrals: Miscellaneous,MD Tristen [Primary Care Provider] - Cody Marquez MD [Physician] - (10-14 days for a postop visit) Diet/Activity/Treatments Diet: Diet as Tolerated Other treatments: Medications: -Aspirin 81mg twice daily x6 weeks to prevent blood clots. -OTC Tylenol 500 mg 1 tablet every 4 hours as needed for pain/fever. Max 6 tablets per day. -Ibuprofen 400 mg 1 tablet every 4 hours as needed for pain/inflammation. Max 2,400 mg per day. -Oxycodone 5 mg take 1-2 tablets every 4 hours as needed for moderate-severe pain (narcotic pain medication). -As needed medications: -Ducolax and /or MiraLax as needed for constipation from narcotic pain medications. -Pepcid AC as needed for stomach upset (usually from aspirin or ibuprofen). Dressing/Wound care: -Keep Evgeny dressing in place until postoperative follow-up office visit. Cut the tail when it stops pumping -Okay to shower. Keep wound out of direct water stream. No soaking or submerging until all the scabs fall off (approximately 6 weeks). -Please call the office if dressing becomes wet, soiled, or saturated. Activities: -Maintain posterior hip precautions x6 weeks. -Weight-bearing as tolerated. Use front wheeled walker, and progress to cane when safe. -Continue with home exercises as directed by your physical therapist. -Elevate ?toes above the nose if you have significant swelling in your lower leg. (A wedge pillow is easiest.) -Ice your incision as needed for pain/inflammation/swelling. Protect your skin with a folded pillowcase. Follow-up: -Follow-up with your surgeon or PA in the office in 10-14 days after surgery. -Follow-up with your surgeon 6 weeks postoperatively. Call the office if you have chest pain, shortness of breath, significant swelling that will not resolve with elevating, fever over 101?, significantly worsening pain. [facility]: [phone] Skin/Wound/Dressing Care Report to your healthcare provider any signs of infection, such as:: chills, fever, night sweats, unusual drainage and unusual redness Visit Report/Discharge Packet Instructions: DI for Hip Replacement Stand Alone Forms: Surgery Discharge Discharge Data Primary Care Provider: Miscellaneous,Doctor Attending Provider: Cody Marquez Quality VTE Deep Vein Thrombosis/Pulmonary Embolism Present on Admission: No
[2021-11-03] MEDS: ASPIRIN EC 81 MG TABLET PO (08:40)
[2021-11-03] MEDS: polyethylene glycoL 3350 17 GM POWD.PACK PO (08:40)
[2021-11-03] MEDS: DOCUSATE 100 MG CAPSULE PO (08:41)
[2021-11-03 08:42] VITALS: BP 133/75; PULSE 82
[2021-11-03] MEDS: LOSARTAN 50 MG TABLET PO (08:42)
--- NOTE | 2021-11-03 10:52 | PT.IPTN ---
Current Diagnoses Unilateral primary osteoarthritis, right hip (11/02/21) Pain in right hip (11/02/21) Surgery Performed Operation Date: 11/02/21 07:45 Actual Procedures p Total Hip Arthroplasty(Right) - Myranda Lucas MD Physical Therapy Treatment Note M2 PT-IP Current Condition Start: 11/02/21 15:04 Freq: NEEDED Status: Discharge Protocol: Document 11/02/21 13:45 AB (Rec: 11/02/21 15:21 AB [id number]) Physical Therapy Current Condition Current Condition Evaluation Date 11/02/21 Treatment Diagnosis s/p R LARISSA posterior approach; difficulty in walking Onset Date 11/02/21 M3 PT-IP Subjective Start: 11/02/21 15:04 Freq: NEEDED Status: Discharge Protocol: Document 11/03/21 10:34 KS (Rec: 11/03/21 12:53 KS [id number]) Subjective Physical Therapy Visit Type Type Treatment Note Visit Start Time 10:34 Visit Stop Time 10:52 Total Visit Minutes 18 Notes Sister present for caregiver training. Number of CAN LINE EXAMINER Visits 1 Physical Therapy Visit Comments Patient Comments agreeable to do PT M4 PT-IP Mobility and Gait Start: 11/02/21 15:04 Freq: NEEDED Status: Discharge Protocol: Document 11/03/21 10:34 KS (Rec: 11/03/21 12:53 KS [id number]) PT-Bed Mobility Assessment Supine to Sit Supine to Sit Standby Assistance Sit to Supine Sit to Supine Standby Assistance Scooting Scooting to Edge of Bed Standby Assistance PT-Transfer Assessment Sit to and From Stand Sit to and from Stand Standby Assistance,Use of Upper Extremities Equipment Transfer Assistive Device Gait Belt,Front Wheeled Walker Orthotic/Prosthetic Devices or Brace: No Transfers Transfer Destination Bed Transfer Ability Level of Assist Standby Assistance,Use of Upper Extremities Comments Mobility Comments Pt in bed upon arrival w/ sister in room. Able to recall precautions. Demonstrated gaitbelt application to pts sister who verbalized understanding. Pt sit<>stand SBA and ambulated ~120 [address] w/ FWW SBA. Good use of FWW and gait improved w/ distance. She returned to room and performed bed mobility SBA. Pt left in bed w/ all needs in reach. Gait Assessment Gait Gait Assistance Required: Standby Assistance,1 Person Assist Distance (Feet) 120 Able to Maintain Weight Bearing Status Yes During Gait Assistive Devices Assistive Device Gait Belt,Front Wheeled Walker Orthotic/Prosthetic Devices or Brace: No Gait Deviations General Gait Pattern Decreased Stride Length, Decreased Feet Clearance Factors Limiting Gait Function Factors Limiting Gait Function Decreased Activity Tolerance, Decreased Strength,Poor Balance Comments Gait Comments Please refer to mobility section for details Stair Climbing Assessment Comments Stair Climbing Comments No stairs at home PT-Balance Assessment Sitting Balance and Reactions Static Sitting Balance Ability Good Dynamic Sitting Balance Ability Good Standing Balance and Reactions Static Standing Balance Ability Good Dynamic Standing Balance Ability Good Device Used FWW M5 PT-IP Objective Assessments Start: 11/02/21 15:04 Freq: NEEDED Status: Discharge Protocol: Document 11/02/21 13:45 AB (Rec: 11/02/21 15:21 AB [id number]) Orientation Orientation/Cognition Level of Alertness Alert Orientation Name,Place,Situation Language Function Ability No Deficits Noted Safety Awareness Decreased Safety Awareness Gross Range of Motion Lower Extremity ROM Assessment Within Functional Limits Strength Lower Extremity Strength Assessment Right Impaired Hip 3+/5 Knee 4-/5 Sensation Assessment Sensation Gross Sensation WNL Muscle Tone Muscle Tone WNL Yes M6 PT-IP Treatment Start: 11/02/21 15:04 Freq: NEEDED Status: Discharge Protocol: Document 11/03/21 10:34 KS (Rec: 11/03/21 12:53 NC [id number]) Physical Therapy Treatment Education Education Provided Precautions,Weight Bearing Status,Post-Op Packet,Safety Other Treatments Other Treatment Performed Completed caregiver training w / pts sister. M7 PT-IP Assessment and Plan Start: 11/02/21 15:04 Freq: NEEDED Status: Discharge Protocol: Document 11/03/21 10:34 KS (Rec: 11/03/21 12:53 NC [id number]) PT Summary Assessment and Plan Potential Rehabilitation Potential Good Status of Condition at Evaluation Stable Summary Impairments Pain,ROM,Strength,Balance, Coordination,Sensation,Tone, Cognition,Bed Mobility, Transfers,Gait,Activity Tolerance Assessment Summary Successfully completed caregiver training w/ pts sister who was able to provide assist and cues w/ all necessary tasks, however pt only required SBA throughout treatment. Able to ambulate ~ 120 ft w/ good use of FWW and able to recall 3/3 hip precautions. Pt will benefit from outpatient rehab to improve strength, ROM, and functional mobility. Goals Bed Mobility Goal Independent Transfer Goal Independent,Front Wheeled Walker Gait Goal Independent,Front Wheel Walker Gait Distance 200 Days to Meet Goals 5 Frequency of Treatment Frequency Of Treatment Twice a Day Treatment Plan Physical Therapy Treatment Plan Bed Mobility Training,Transfer Training,Gait Training, Therapeutic Exercise,Balance Retraining,Post Op Education, Discharge Planning,Hot or Cold Pack,Neuromuscular Re-ed, Coordination Retraining,Manual Therapy Precautions Posterior Hip Precautions No Hip Flexion > 90 degrees,No Hip Internal Rotation,No Hip Adduction Weight Bearing Status Weight Bearing Status Weight Bear as Tolerated Allowed Weight Bearing Amount (enter % RLE WBAT or #) (%) Recommendations To Nursing Amount of Assist Needed 1 Person Assist Discharge Recommendations PT Discharge Recommendations Home with Assistance, Outpatient PT Transportation Needs at Discharge Private Vehicle
--- NOTE | 2021-11-03 16:19 | CM.IDA ---
Initial DCP Assessment Note Pt is a 61 yo female, resident of [place], now POD#1 from right hip surgery by Dr Marquez PCP: Not Listed Payer: Daryl Adne Reviewed chart, pt discussed in multidisciplinary rounds this morning. Therapy has cleared pt for return home w/family to assist and pt has planned for home, DC order from Ortho has already been initiated this morning. No needs from DC planning team, home w/family as planned, outpatient PT HAZEL Szymanski
== END 2021-11-03 12:30 | disposition home or self-care (01) ==
LOC: OR 05:58 → AC 05:59
PROVIDERS: Orthopaedic Surgery; Referring Provider Orthopaedic Surgery; Visit Provider Orthopaedic Surgery
PROC: 0SR90JZ Replacement of Right Hip Joint with Synthetic Substitute, Open Approach (ICD-10-PCS; CPT 27130; principal; 2021-11-02 07:45)
DX: M16.11 Unilateral primary osteoarthritis, right hip (principal); D62 Acute posthemorrhagic anemia; I10 Essential (primary) hypertension; G47.33 Obstructive sleep apnea (adult) (pediatric); E66.9 Obesity, unspecified; Z68.36 Body mass index [BMI] 36.0-36.9, adult; Z20.822 Contact with and (suspected) exposure to COVID-19
CPT/HCPCS: 27130; 36415; 72170; 73502; 85014; 85018; 87635; 97161; 97530; C1776; C9803; C9290; J0171; J0690; J1100; J2250; J2274; J2405; J2704; J3010

== ENCOUNTER 2022-03-30 17:48 | Emergency (ER) | payer OTHER, SELFPAY ==
[2021-11-02 11:46] VITALS: BMI 34.3
[2022-03-30 17:58] VITALS: BP 136/92; PULSE 91; RESP 22; TEMP 36.6; O2SAT 96
[2022-03-30 18:43] LABS: Add Manual Diff / Slide Review NO; Basophils Absolute Auto 100 /uL (0-100); Basophils Percent Auto 1.1 % (0-2); Eosinophils Absolute Auto 200 /uL (0-450); Eosinophils Percent Auto 2.3 % (2-4); Hematocrit 43.6 % (36-46); Lymphocytes Absolute Auto 2200 /uL (1100-4500); Lymphocytes Percent Auto 26.9 % (25-40); Mean Corpuscular HGB Conc 34.3 % (30-36); Mean Corpuscular Hemoglobin 27.9 PG (26-34); Mean Corpuscular Volume 81.2 fL (80-100); Monocytes Absolute Auto 600 /uL (0-900); Monocytes Percent Auto 7.7 % (3-14); Neutrophils Absolute Auto 5000 /uL (1500-7000); Platelet Count 275 X10^3/uL (150-400); Red Blood Cell Count 5.37 X10^6/uL (4.0-5.2); Red Cell Distribution Width 15.6 % (11.6-14.8); White Blood Cell Count 8.1 X10^3/uL (4.5-11.0)
--- NOTE | 2022-03-30 19:14 | DI.CT.S_ITS ---
PROCEDURE: CT ABDOMEN PELVIS W CON INDICATIONS: upper abdominal pain TECHNIQUE: After the administration of IV contrast, axial sections were acquired from the lung bases to the pubic symphysis. Coronal and sagittal reformats were performed. For radiation dose reduction, the following was used: automated exposure control, adjustment of mA and/or kV according to patient size. Study available online for interpretation at 9:59 p.m.. COMPARISON: None. FINDINGS: Image quality: There is metallic streak artifact secondary to patient's right hip prosthesis. Lung bases: Unremarkable. Heart: Heart is normal in size. ABDOMEN: Liver: No mass lesion. Gallbladder: Multiple calcified gallstones are present in the gallbladder without wall thickening or pericholecystic fluid. Biliary ducts: No biliary ductal dilatation. Pancreas: Unremarkable. Spleen: Normal in size. Adrenal Glands: There is a small left adrenal nodule measuring up to 1.6 cm with indeterminate attenuation values. Kidneys and Ureters: No hydronephrosis. 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 Stomach and Bowel: Stomach, small bowel loops, and colon are normal in caliber and wall thickness. The appendix is normal in appearance. There is colonic diverticulosis without acute diverticulitis. Peritoneum: No abnormal intraperitoneal fluid. No free air. Ventral Wall: No hernia. Abdominal Nodes: No retroperitoneal or mesenteric adenopathy by size criteria. Vessels: Aorta and inferior vena cava are normal in size. PELVIS: Pelvic Organs: Unremarkable. Bladder: Unremarkable. Pelvic Nodes: No enlarged lymph nodes. Miscellaneous: No inguinal hernias are seen. Bones: There is a mild rightward curvature of the lumbar spine. Visualized osseous structures demonstrate no suspicious focal lesions. IMPRESSION: 1. No definite acute intra-abdominal abnormality. 2. Cholelithiasis without CT evidence of acute cholecystitis. 3. No evidence of appendicitis. 4. Colonic diverticulosis without acute diverticulitis. Dictated by: Miguel Angel Richardson M.D. on 03/30/2022 at 22:10 Approved by: Miguel Angel Richardson M.D. on 03/30/2022 at 22:15
--- NOTE | 2022-03-30 19:18 | ED.ABDPAIN ---
HPI - Abdominal Pain General Chief Complaint: Abdominal Pain Stated Complaint: vertigo, gallbladder issues Time Seen by Provider: 03/30/22 19:13 Source: patient and family Mode of arrival: Wheelchair History of Present Illness HPI narrative: Patient here with . Complains of left lower quadrant pain that radiates to the back for the past 4 days. Dizziness started 2 days ago. Has not eaten or drank very much. No changes in urination. No dysuria frequency or hematuria. No past history of colonoscopy. No history of diverticulosis or diverticulitis. No fever or chills. Denies any chest pain. No rash. Skin exposed abdomen and back on the left side. No recent illness. No fever chills cough cold or congestion. Related Data Home Medications Medication Instructions Recorded Confirmed lidocaine 5 % topical patch 2 - 3 patch topical BEDTIME 10/28/21 11/02/21 losartan 50 mg tablet 50 mg PO DAILY 10/28/21 11/02/21 varenicline 1 mg tablet (Chantix) 1 mg PO BID 10/28/21 11/02/21 Previous Rx's Medication Instructions Recorded acetaminophen 500 mg capsule 500 mg PO Q4H PRN fever or pain 11/03/21 #90 caps docusate sodium 100 mg capsule 100 mg PO BID PRN Constipation 11/03/21 from narcotic pain meds #20 caps ibuprofen 400 mg tablet 400 mg PO Q4H PRN 11/03/21 Pain/inflammation #90 tabs oxycodone 5 mg tablet See Rx Instructions .Route 11/03/21 .COMPLEX PRN Pain, Moderate (4-6) #42 tabs polyethylene glycol 3350 17 gram 17 g PO DAILY PRN Constipation #14 11/03/21 oral powder packet ea meclizine 25 mg tablet 25 mg PO QID PRN dizziness #20 tabs 03/31/22 Allergies Allergy/AdvReac Type Severity Reaction Status Date / Time No Known Drug Allergies Allergy Verified 11/02/21 07:17 Review of Systems Review of Systems Narrative: GENERAL: Denies chills, fatigue, malaise, fever, sweats. HEENT: Denies sinus pain, ear pain, sore throat RESPIRATORY: Denies dyspnea, cough CARDIOVASCULAR: Denies chest pain, palpitations GASTROINTESTINAL: Denies nausea, vomiting, negative diarrhea positive abdominal pain : Denies dysuria, frequency, hematuria MUSCULOSKELETAL: denies muscle or bony pain SKIN: Denies rash, skin lesions NEUROLOGIC: Denies weakness, numbness, positive dizziness ROS Unobtainable: All systems reviewed & are unremarkable except as noted in HPI and below Patient History Medical History Anesthesia Hypertension Obesity TERRANCE on CPAP Parotitis UTI (urinary tract infection) Surgical History Hx of dilation and curettage Family History Father Hypertension Diabetes mellitus Stroke Heart disease Mother Cancer Gallstones Social History household members: spouse Smoking Status: Current some day smoker alcohol intake: current Smoking Status: Current some day smoker tobacco type: cigarettes alcohol intake frequency: holidays/special occasions only Substance Use Type: does not use Exam Narrative Exam Narrative: GENERAL: in no distress, not toxic not dyspneic HEAD: Normocephalic. EYES: Pupils equal round No scleral icterus. ENT: Mucous membranes moist. NECK: Trachea midline. CARDIOVASCULAR: Regular rate and rhythm without murmurs RESPIRATORY: Clear to auscultation. Breath sounds equal bilaterally. No wheezes, rales, or rhonchi. GASTROINTESTINAL: Abdomen soft, reproducible left lower quadrant tenderness, no rash. No peritoneal signs, bowel sounds are present. No CVA tenderness EXTREMITIES: No gross deformities. BACK: No flank tenderness. NEURO: AOx4. Able to stand, feels off balance with the dizziness. Does not feel like the room spinning or she is spinning., has clear speech no facial droop light touch intact bilateral face hands with strong equal digital commentator, negative pronator drift. Fast exam is negative SKIN: Warm and dry PSYCH: Not anxious, is cooperative Initial Vital Signs Initial Vital Signs: Vital Signs Temperature 97.8 F 03/30/22 17:58 Pulse Rate 91 H 03/30/22 17:58 Respiratory Rate 22 03/30/22 17:58 Blood Pressure 136/92 H 03/30/22 17:58 Pulse Oximetry 96 03/30/22 17:58 Oxygen Delivery Method 03/30/22 17:58 Course Course Course Narrative: No new issues during course of stay Orders Ordered: ED Orders 03/30/22 22:44 Urine Culture Stat Urine Microscopic Stat Discontinued Medications Al Hydrox/Mg Hydrox/Simethicone 20 ml/ Lidocaine HCl 15 ml 0 ml PO NOW ONE Stop: 03/30/22 19:15 Last Admin: 03/30/22 21:48 Dose: Not Given Documented By: NAYAN Sodium Chloride (Normal Saline 0.9%) 1,000 mls @ 1,000 mls/hr IV BOLUS ONE Stop: 03/30/22 20:12 Last Infusion: 03/30/22 23:06 Dose: 0 mls/hr Documented By: Admin: 03/30/22 21:16 Dose: 1,000 mls/hr Documented By: NAYAN Sodium Chloride (Normal Saline 0.9%) 1,000 mls @ 1,000 mls/hr IV BOLUS ONE Stop: 03/30/22 23:37 Last Infusion: 03/30/22 23:55 Dose: 0 mls/hr Documented By: Infusion: 03/30/22 23:06 Dose: 1,000 mls/hr Documented By: Infusion: 03/30/22 23:05 Dose: 0 mls/hr Documented By: Admin: 03/30/22 23:01 Dose: 1,000 mls/hr Documented By: NAYAN Ketorolac Tromethamine (Ketorolac 30 Mg/Ml Vial) 15 mg IV NOW ONE Stop: 03/30/22 22:39 Last Admin: 03/30/22 23:01 Dose: 15 mg Documented By: NAYAN Meclizine HCl (Meclizine Hcl 12.5 Mg Tablet) 25 mg PO NOW ONE Stop: 03/30/22 22:39 Last Admin: 03/30/22 23:01 Dose: 25 mg Documented By: NAYAN Morphine Sulfate (Morphine 4 Mg/Ml Inj) 4 mg IV NOW ONE Stop: 03/30/22 19:14 Last Admin: 03/30/22 21:16 Dose: 4 mg Documented By: NAYAN Ondansetron HCl (Ondansetron 4 Mg/2 Ml Inj) 4 mg IV NOW ONE Stop: 03/30/22 19:14 Last Admin: 03/30/22 21:16 Dose: 4 mg Documented By: NAYAN Pantoprazole Sodium (Pantoprazole 40 Mg Vial) 40 mg IV NOW ONE Stop: 03/30/22 19:15 Last Admin: 03/30/22 21:48 Dose: Not Given Documented By: NAYAN Reevaluation(s) Reevaluation #1: Patient was sleeping after morphine. Got patient up with assist with nurse. She does feel dizzy. She feels like she is spinning. We will order Antivert. Another liter of normal saline and Toradol. Has continued left lower quadrant pain. Time: 22:40 Reevaluation #2: Patient feeling much better now. Has been up and walking, dizziness improved with Antivert. at bedside. Return precautions reviewed with them. Reviewed CT scan imaging. At this time abdominal discomfort likely abdominal wall or lumbar radiculopathy. Time: 00:09 Vital Signs Vital signs: Vital Signs - 8 hr 03/30/22 17:58 Temperature 97.8 F Pulse Rate 91 H Respiratory Rate 22 Blood Pressure 136/92 H Pulse Oximetry 96 Oxygen Delivery Method Room Air MDM - Abdominal Pain Differential Diagnosis Differential diagnosis: Likely abdominal pain, acute appendicitis, calculus of kidney, constipation, diverticulitis, pancreatitis and small bowel obstruction Lab Data Result diagrams: 03/30/22 18:14 03/30/22 18:03 Labs: Lab Results 03/30/22 03/30/22 03/30/22 Range/Units 18:03 18:14 22:44 WBC 8.1 (4.5-11.0) X10^3/uL RBC 5.37 H (4.0-5.2) X10^6/uL Hgb 15.0 (12.0-16.0) g/dL Hct 43.6 (36-46) % MCV 81.2 (80-100) fL MCH 27.9 (26-34) PG MCHC 34.3 (30-36) % RDW 15.6 H (11.6-14.8) % Plt Count 275 (150-400) X10^3/uL Neut % (Auto) 62.0 (50-75) % Lymph % (Auto) 26.9 (25-40) % [place] % (Auto) 7.7 (3-14) % Eos % (Auto) 2.3 (2-4) % Baso % (Auto) 1.1 (0-2) % Neut # (Auto) 5000 (5895-8092) /uL Lymph # (Auto) 2200 (3441-4559) /uL [place] # (Auto) 600 (0-900) /uL Eos # (Auto) 200 (0-450) /uL Baso # (Auto) 100 (0-100) /uL Sodium 139 (137-145) mmol/L Potassium 4.1 (3.4-5.1) mmol/L Chloride 107 (98-107) mmol/L Carbon Dioxide 21 L (22-32) mmol/L BUN 14 (7-17) mg/dL Creatinine 0.76 (0.52-1.04) mg/dL Estimated GFR > 60 (>60) mL/min BUN/Creatinine Ratio 18.4 (6-22) Glucose 121 H (80-110) mg/dL Calcium 9.5 (8.4-10.2) mg/dL Total Bilirubin 0.3 (0.2-1.3) mg/dL AST 50 H (14-36) IU/L ALT 55 H (<35) IU/L Alkaline Phosphatase 126 (38-126) U/L Total Protein 7.7 (6.3-8.2) g/dL Albumin 4.1 (3.5-5.0) g/dL Globulin 3.6 (1.7-4.1) g/dL Albumin/Globulin Ratio 1.1 (1.0-2.8) Lipase 83 (23-300) U/L Urine RBC None seen (0-5/HPF) Urine WBC 0-1/hpf (0-5/HPF) Ur Squamous Epith Cells 0-1 /hpf (0-5/HPF) Urine Bacteria Few (2-10) H (None) Micro UA Comment * Point of care testing: Urine Dip Bedside Urine Glucose Negative Bedside Urine Bilirubin - Negative Bedside Urine Ketone - Negative Urine Specific [place] 1.010 Bedside Urine Occult Blood + Bedside Urine pH 5 Bedside Urine Protein - Negative Bedside Urine Urobilinogen - Negative Bedside Urine Nitrite - Negative Bedside Urine Leukocytes - Negative Esterase Imaging Data CT scan - abdomen/pelvis: Radiologist's Impression: [address] [address] [address] Scan Report Signed Patient: Latanya Mancera MR#: [id number] : 1960 Acct:[id number] Age/Sex: 61 / F Date of Service: 03/30/22 Loc: ED Accession Number: [id number] ?? Procedure: CT abdomen pelvis w con Ordering Provider: Layo Ch MD PROCEDURE:? CT ABDOMEN PELVIS W CON ? INDICATIONS:? upper abdominal pain ? TECHNIQUE:? After the administration of IV contrast, axial sections were acquired from the lung bases to the pubic symphysis.? Coronal and sagittal reformats were performed.? For radiation dose reduction, the following was used:? automated exposure control, adjustment of mA and/or kV according to patient size. ? Study available online for interpretation at 9:59 p.m.. ? COMPARISON:? None. ? FINDINGS:? Image quality:? There is metallic streak artifact secondary to patient's right hip prosthesis.? ? Lung bases:? Unremarkable.? ? Heart:? Heart is normal in size. ? ? ABDOMEN: Liver:? No mass lesion. Gallbladder:? Multiple calcified gallstones are present in the gallbladder without wall thickening or pericholecystic fluid. Biliary ducts:? No biliary ductal dilatation.? ? Pancreas:? Unremarkable.? ? Spleen:? Normal in size.? ? Adrenal Glands:? There is a small left adrenal nodule measuring up to 1.6 cm with indeterminate attenuation values. Kidneys and Ureters:? No hydronephrosis.? 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 ? ? Stomach and Bowel:? Stomach, small bowel loops, and colon are normal in caliber and wall thickness.? The appendix is normal in appearance.? There is colonic diverticulosis without acute diverticulitis. Peritoneum:? No abnormal intraperitoneal fluid.? No free air.? ? Ventral Wall: ? No hernia.? Abdominal Nodes:? No retroperitoneal or mesenteric adenopathy by size criteria.? Vessels:? Aorta and inferior vena cava are normal in size.? ? PELVIS: Pelvic Organs:? Unremarkable.? ? Bladder:? Unremarkable.? ? Pelvic Nodes: No enlarged lymph nodes.? Miscellaneous: No inguinal hernias are seen. ? ? ? Bones:? There is a mild rightward curvature of the lumbar spine.? Visualized osseous structures demonstrate no suspicious focal lesions. ? IMPRESSION:? ? 1. No definite acute intra-abdominal abnormality. ? 2. Cholelithiasis without CT evidence of acute cholecystitis. ? 3. No evidence of appendicitis. ? 4. Colonic diverticulosis without acute diverticulitis.? ? ? Dictated by: Miguel Angel Richardson M.D. on 03/30/2022 at 22:10 ? ? Approved by: Miguel Angel Richardson M.D. on 03/30/2022 at 22:15 ? ECG Data Interpretation: Sinus rhythm rate [address] elevation or depression MDM Narrative Medical decision making narrative: Appropriate for discharge home. Dizziness and abdominal pain likely not related. Exam and laboratory studies and imaging are reassuring. No CT scan head indicated at this time. Symptoms improved with conservative treatment with meclizine. Clinically likely vertigo. Abdominal discomfort likely abdominal wall. Return precautions reviewed with patient. They desire discharge home Discharge Plan Departure Patient Disposition: Home Clinical Impression: Abdominal pain, Vertigo Instructions: DI for Vertigo, DI for Abdominal Pain-Adult Activity Restrictions/Additional Instructions: See family doctor this week for re-evaluation. You may need referral to physical therapy or need further imaging/MRI of the lumbar spine/your back. May continue home ibuprofen or Tylenol for pain. See family doctor for re-evaluation of your dizziness. It is likely vertigo. Prescription for meclizine has been sent to your pharmacy to continue tomorrow if symptoms return. Return if worse if any questions or concerns. Prescriptions: New meclizine 25 mg tablet 25 mg PO QID PRN (Reason: dizziness) Qty: 20 0RF No Action losartan 50 mg Tablet 50 mg PO DAILY lidocaine 5 % Adhesive Patch,Medicated 2 - 3 patch TOPICAL BEDTIME Rx Instructions: leave on most painful area for up to 12 hrs varenicline [Chantix] 1 mg Tablet 1 mg PO BID acetaminophen 500 mg capsule 500 mg PO Q4H MDD Max 3000 mg a day PRN (Reason: fever or pain) Qty: 90 0RF docusate sodium 100 mg Capsule 100 mg PO BID PRN (Reason: Constipation from narcotic pain meds) Qty: 20 0RF ibuprofen 400 mg Tablet 400 mg PO Q4H MDD Max 2400 mg per day PRN (Reason: Pain/inflammation) Qty: 90 0RF oxycodone 5 mg Tablet See Rx Instructions .ROUTE .COMPLEX PRN (Reason: Pain, Moderate (4-6)) Qty: 42 0RF Rx Instructions: take 1-2 tablets by mouth every 4 hours as needed for moderate-severe pain polyethylene glycol 3350 17 gram Powder In Packet 17 g PO DAILY PRN (Reason: Constipation) Qty: 14 0RF Referrals: Kimmy Guillen MD [Primary Care Provider] - Visit Report Forms: Patient Portal/API
[2022-03-30 20:01] LABS: Alanine Aminotransferase 55 IU/L (<35); Albumin 4.1 g/dL (3.5-5.0); Albumin Globulin Ratio 1.1 (1.0-2.8); Alkaline Phosphatase 126 U/L (38-126); Aspartate Aminotransferase 50 IU/L (14-36); BUN Creatinine Ratio 18.4 (6-22); Bilirubin Total 0.3 mg/dL (0.2-1.3); Blood Urea Nitrogen 14 mg/dL (7-17); Calcium 9.5 mg/dL (8.4-10.2); Carbon Dioxide 21 mmol/L (22-32); Chloride 107 mmol/L (98-107); Estimated Glomerular Filt Rate > 60 mL/min (>60); Globulin 3.6 g/dL (1.7-4.1); Glucose 121 mg/dL (80-110); HEMOLYSIS 30 (0-50); Lipase 83 U/L (23-300); Potassium 4.1 mmol/L (3.4-5.1); Sodium 139 mmol/L (137-145); Total Protein 7.7 g/dL (6.3-8.2)
[2022-03-30] MEDS: MORPHINE 4 MG/ML INJ IV (21:16)
[2022-03-30] MEDS: ONDANSETRON 4 MG/2 ML INJ IV (21:16)
[2022-03-30] MEDS: SODIUM CHLORIDE 0.9% 1,000 ML 1000 ML IV ×2 (21:16→23:01)
[2022-03-30] MEDS: KETOROLAC 30 MG/ML VIAL 15 MG IV (23:01)
[2022-03-30] MEDS: MECLIZINE HCL 12.5 MG TABLET 25 MG PO (23:01)
[2022-03-30 23:54] LABS: Bacteria Urine Few (2-10); RBC Urine None Seen (0-5/HPF); Squamous Epithelial Cell Urine 0-1 /HPF (0-5/HPF); WBC Urine 0-1/HPF (0-5/HPF)
== END 2022-03-31 00:11 | disposition home or self-care (01) ==
PROVIDERS: Emergency Medicine; Emergency Provider Emergency Medicine; PCP Student in an Organized Health Care Education/Training Program
DX: R10.32 Left lower quadrant pain (principal); R42 Dizziness and giddiness
CPT/HCPCS: 74177; 80053; 81003; 81015; 83690; 85025; 87077; 87086; 87186; 93005; 96361; 96374; 96375; 99284; J1885; J2270; J2405; Q9967

== ENCOUNTER 2022-07-14 13:19 | Emergency (ER) | payer OTHER, SELFPAY ==
[2021-11-02 11:46] VITALS: BMI 34.3
[2022-07-14] VITALS (7 sets, daily range): BP systolic 130–189; BP diastolic 67–100; PULSE 59–74; RESP 15–23; TEMP 36.6; O2SAT 95–100; BMI 33.5
--- NOTE | 2022-07-14 13:41 | DI.RAD.S_ITS ---
PROCEDURE: XR CHEST 1V INDICATIONS: chest pain TECHNIQUE: One view of the chest was acquired. COMPARISON: None. FINDINGS: Surgical changes and devices: None. Lungs and pleura: Lungs are clear. No pleural effusions or pneumothorax. Mediastinum: Mediastinal contours appear normal. Heart size is normal. Bones and chest wall: No suspicious bony lesions. Overlying soft tissues appear unremarkable. IMPRESSION: No acute process. Dictated by: Suhail Andres M.D. on 07/14/2022 at 15:36 Approved by: Suhail Andres M.D. on 07/14/2022 at 15:36
[2022-07-14] MEDS: ASPIRIN 81 MG CHEW TAB 324 MG PO (14:03)
[2022-07-14 14:07] LABS: Add Manual Diff / Slide Review NO; Basophils Absolute Auto 100 /uL (0-100); Basophils Percent Auto 1.4 % (0-2); Eosinophils Absolute Auto 200 /uL (0-450); Eosinophils Percent Auto 1.9 % (2-4); Hematocrit 45.1 % (36-46); Lymphocytes Absolute Auto 1800 /uL (1100-4500); Lymphocytes Percent Auto 21.3 % (25-40); Mean Corpuscular HGB Conc 33.2 % (30-36); Mean Corpuscular Hemoglobin 28.2 PG (26-34); Mean Corpuscular Volume 84.8 fL (80-100); Monocytes Absolute Auto 500 /uL (0-900); Monocytes Percent Auto 5.6 % (3-14); Neutrophils Absolute Auto 5900 /uL (1500-7000); Neutrophils Percent Auto 69.8 % (50-75); Platelet Count 265 X10^3/uL (150-400); Red Blood Cell Count 5.32 X10^6/uL (4.0-5.2); Red Cell Distribution Width 14.3 % (11.6-14.8); White Blood Cell Count 8.5 X10^3/uL (4.5-11.0)
[2022-07-14 14:13] LABS: Prothrombin Time 11.5 SECONDS (10.1-12.7)
[2022-07-14 14:16] LABS: PTT Partial Thromboplastin Tim 32 SECONDS (26-36)
[2022-07-14 14:18] LABS: Alanine Aminotransferase 27 IU/L (<35); Albumin 4.1 g/dL (3.5-5.0); Albumin Globulin Ratio 1.1 (1.0-2.8); Alkaline Phosphatase 100 U/L (38-126); Aspartate Aminotransferase 23 IU/L (14-36); BUN Creatinine Ratio 18.2 (6-22); Bilirubin Total 0.3 mg/dL (0.2-1.3); Blood Urea Nitrogen 10 mg/dL (7-17); Calcium 9.2 mg/dL (8.4-10.2); Carbon Dioxide 22 mmol/L (22-32); Chloride 105 mmol/L (98-107); Creatine Kinase 44 U/L (30-135); Estimated Glomerular Filt Rate > 60 mL/min (>60); Globulin 3.6 g/dL (1.7-4.1); Glucose 105 mg/dL (80-110); HEMOLYSIS < 15 (0-50); Lipase 42 U/L (23-300); Magnesium 1.9 mg/dL (1.6-2.3); Potassium 4.4 mmol/L (3.4-5.1); Sodium 140 mmol/L (137-145); Total Protein 7.7 g/dL (6.3-8.2)
[2022-07-14 14:22] LABS: Appearance Urine UA CLEAR; Bilirubin Urine UA NEGATIVE (NEGATIVE); Color Urine UA YELLOW; Glucose Urine UA NEGATIVE (Negative); Ketones Urine UA NEGATIVE (NEGATIVE); Leukocyte Esterase Urine UA NEGATIVE (NEGATIVE); Nitrite Urine UA NEGATIVE (Negative); Occult Blood Urine UA 1+ (Negative); Protein Urine UA NEGATIVE (Negative); Specific Gravity Urine UA 1.025 (1.000-1.035); Urobilinogen Urine UA 0.2 E.U./dL (0.2)
[2022-07-14 14:24] LABS: pH Urine UA 5.5 (4.5-8.0)
[2022-07-14 14:27] LABS: COVID19 -Nasal RAPID Negative (Negative)
[2022-07-14 14:30] LABS: Troponin I < 0.012 ng/mL (0.01-0.034)
[2022-07-14 14:32] LABS: Amorphous Sediment Urine 1+; Bacteria Urine None Seen; Culture Indicated Urine Cult Not Indicated; RBC Urine 0-1/HPF (0-5/HPF); Squamous Epithelial Cell Urine 0-1 /HPF (0-5/HPF); WBC Urine 0-1/HPF (0-5/HPF)
--- NOTE | 2022-07-14 15:27 | PC.NURSE ---
pt reports that she hasn't taken her blood pressure medication for about a month. reports that she doesn't remember to take it. states she is still smoking and currently has a headache. aware.
--- NOTE | 2022-07-14 15:52 | ED.CHESTPAIN ---
HPI - Chest Pain General Chief Complaint: Chest Pain Stated Complaint: chest pain T-3 Time Seen by Provider: 07/14/22 15:23 Source: patient Mode of arrival: Ambulatory History of Present Illness HPI narrative: Patient here with . Complaints constant ongoing left sided chest pain that is reproducible with position. When lying supine she has to turn towards the right otherwise it would hurt her left-sided chest. Increased pain with movement of the left arm as well. No pain with deep breath or coughing. No pain on deep palpation. Has never had this problem before. No prior history or family history of heart attacks. No known injury. No repetitive use of muscle on left chest. No numbness tingling or weakness no syncope. No cough cold or congestion. No urinary complaints. Related Data Previous Rx's Medication Instructions Recorded acetaminophen 500 mg capsule 500 mg PO Q4H PRN fever or pain 11/03/21 #90 caps oxycodone 5 mg tablet See Rx Instructions .Route 11/03/21 .COMPLEX PRN Pain, Moderate (4-6) #42 tabs hydrocodone 5 mg-acetaminophen 325 1 tab PO Q6H PRN pain #15 tabs 07/14/22 mg tablet Allergies Allergy/AdvReac Type Severity Reaction Status Date / Time No Known Drug Allergies Allergy Verified 11/02/21 07:17 Review of Systems Review of Systems Narrative: GENERAL: negative chills, fatigue, malaise, fever, sweats. HEENT: negative sinus pain, ear pain, sore throat RESPIRATORY: negative dyspnea, cough CARDIOVASCULAR: Positive chest pain, negative palpitations GASTROINTESTINAL: negative nausea, vomiting, abdominal pain : negative dysuria, frequency, hematuria MUSCULOSKELETAL: negative muscle or bony pain SKIN: negative rash, skin lesions NEUROLOGIC: negative weakness, numbness ROS Unobtainable: All systems reviewed & are unremarkable except as noted in HPI and below Patient History Medical History Anesthesia Hypertension Obesity TERRANCE on CPAP Parotitis UTI (urinary tract infection) Surgical History Hx of dilation and curettage Family History Father Hypertension Diabetes mellitus Stroke Heart disease Mother Cancer Gallstones Social History household members: spouse Smoking Status: Current some day smoker alcohol intake: current Smoking Status: Current some day smoker tobacco type: cigarettes alcohol intake frequency: holidays/special occasions only Substance Use Type: does not use Exam Narrative Exam Narrative: GENERAL: in no distress, not toxic not dyspneic HEAD: Normocephalic. EYES: Pupils equal round ENT: Mucous membranes moist. NECK: Trachea midline. CARDIOVASCULAR: Regular rate and rhythm without murmurs nontender chest on palpation however is positional, when patient rotates to the left increased pain. Movement of left arm causes pain. RESPIRATORY: Clear to auscultation. Breath sounds equal bilaterally. No wheezes, rales, or rhonchi. GASTROINTESTINAL: Abdomen soft, non-tender EXTREMITIES: No gross deformities. BACK: No flank tenderness. NEURO: AOx4. SKIN: Warm and dry PSYCH: Not anxious, is cooperative Initial Vital Signs Initial Vital Signs: Vital Signs Temperature 98 F 07/14/22 13:38 Pulse Rate 71 07/14/22 13:38 Respiratory Rate 17 07/14/22 13:38 Blood Pressure 130/67 07/14/22 13:38 Pulse Oximetry 99 07/14/22 13:38 Oxygen Delivery Method 07/14/22 13:38 Scores HEART Score Heart Score history: Slightly Suspicious Heart Score EKG: Non-Specific repolarization disturbance Heart Score Age: 45-64 years old Heart Score risk factors: 1-2 risk factors Heart Score troponin: < or = to normal limit Heart Score Total: 3 Course Orders Ordered: Discontinued Medications Aspirin (Aspirin 81 Mg Chew Tab) 324 mg PO NOW ONE Stop: 07/14/22 13:42 Last Admin: 07/14/22 14:03 Dose: 324 mg Documented By: JOI Sodium Chloride (Normal Saline 0.9%) 500 mls @ 1,000 mls/hr IV BOLUS ONE Stop: 07/14/22 16:25 Last Infusion: 07/14/22 17:28 Dose: 0 mls/hr Documented By: Admin: 07/14/22 16:12 Dose: 1,000 mls/hr Documented By: RLS Ketorolac Tromethamine (Ketorolac 30 Mg/Ml Vial) 15 mg IV NOW ONE Stop: 07/14/22 15:52 Last Admin: 07/14/22 16:10 Dose: 15 mg Documented By: RLS Vital Signs Vital signs: Vital Signs - 8 hr 07/14/22 13:38 07/14/22 15:00 07/14/22 15:01 Temperature 98 F Pulse Rate 71 66 73 Respiratory Rate 17 Blood Pressure 130/67 Pulse Oximetry 99 95 96 Oxygen Delivery Method Room Air Room Air 07/14/22 15:01 07/14/22 15:18 07/14/22 15:18 Temperature Pulse Rate 71 Respiratory Rate 20 Blood Pressure 189/98 H 151/85 H Pulse Oximetry 97 Oxygen Delivery Method 07/14/22 15:30 07/14/22 15:30 07/14/22 16:00 Temperature Pulse Rate 59 L 71 Respiratory Rate 15 23 Blood Pressure 145/86 H Pulse Oximetry 97 98 Oxygen Delivery Method MDM - Chest Pain Lab Data 07/14/22 14:00 07/14/22 14:00 Labs: Lab Results 07/14/22 07/14/22 07/14/22 Range/Units 14:00 14:00 14:00 WBC 8.5 (4.5-11.0) X10^3/uL RBC 5.32 H (4.0-5.2) X10^6/uL Hgb 15.0 (12.0-16.0) g/dL Hct 45.1 (36-46) % MCV 84.8 (80-100) fL MCH 28.2 (26-34) PG MCHC 33.2 (30-36) % RDW 14.3 (11.6-14.8) % Plt Count 265 (150-400) X10^3/uL Neut % (Auto) 69.8 (50-75) % Lymph % (Auto) 21.3 L (25-40) % Young % (Auto) 5.6 (3-14) % Eos % (Auto) 1.9 L (2-4) % Baso % (Auto) 1.4 (0-2) % Neut # (Auto) 5900 (4090-4986) /uL Lymph # (Auto) 1800 (4943-7282) /uL Young # (Auto) 500 (0-900) /uL Eos # (Auto) 200 (0-450) /uL Baso # (Auto) 100 (0-100) /uL PT 11.5 (10.1-12.7) SECONDS INR 1.0 (0.9-1.3) APTT 32 (26-36) SECONDS Sodium 140 (137-145) mmol/L Potassium 4.4 (3.4-5.1) mmol/L Chloride 105 (98-107) mmol/L Carbon Dioxide 22 (22-32) mmol/L BUN 10 (7-17) mg/dL Creatinine 0.55 (0.52-1.04) mg/dL Estimated GFR > 60 (>60) mL/min BUN/Creatinine Ratio 18.2 (6-22) Glucose 105 (80-110) mg/dL Calcium 9.2 (8.4-10.2) mg/dL Magnesium 1.9 (1.6-2.3) mg/dL Total Bilirubin 0.3 (0.2-1.3) mg/dL AST 23 (14-36) IU/L ALT 27 (<35) IU/L Alkaline Phosphatase 100 (38-126) U/L Total Creatine Kinase 44 (30-135) U/L CK-MB (CK-2) TNP CK-MB (CK-2) Rel Index TNP Troponin I < 0.012 (0.01-0.034) ng/mL Total Protein 7.7 (6.3-8.2) g/dL Albumin 4.1 (3.5-5.0) g/dL Globulin 3.6 (1.7-4.1) g/dL Albumin/Globulin Ratio 1.1 (1.0-2.8) Lipase 42 (23-300) U/L Urine Color Urine Appearance Urine pH (4.5-8.0) Ur Specific Reliance (1.000-1.035) Urine Protein (Negative) Urine Glucose (UA) (Negative) g/dL Urine Ketones (NEGATIVE) Urine Occult Blood (Negative) Urine Nitrate (Negative) Urine Bilirubin (NEGATIVE) Urine Urobilinogen (0.2) E.U./dL Ur Leukocyte Esterase (NEGATIVE) Urine RBC (0-5/HPF) Urine WBC (0-5/HPF) Ur Squamous Epith Cells (0-5/HPF) Amorphous Sediment Urine Bacteria (None) Ur Culture Indicated? SARS-CoV-2 (PCR) (Negative) 07/14/22 07/14/22 Range/Units 14:00 14:15 WBC (4.5-11.0) X10^3/uL RBC (4.0-5.2) X10^6/uL Hgb (12.0-16.0) g/dL Hct (36-46) % MCV (80-100) fL MCH (26-34) PG MCHC (30-36) % RDW (11.6-14.8) % Plt Count (150-400) X10^3/uL Neut % (Auto) (50-75) % Lymph % (Auto) (25-40) % Young % (Auto) (3-14) % Eos % (Auto) (2-4) % Baso % (Auto) (0-2) % Neut # (Auto) (1079-5398) /uL Lymph # (Auto) (9012-4380) /uL Young # (Auto) (0-900) /uL Eos # (Auto) (0-450) /uL Baso # (Auto) (0-100) /uL PT (10.1-12.7) SECONDS INR (0.9-1.3) APTT (26-36) SECONDS Sodium (137-145) mmol/L Potassium (3.4-5.1) mmol/L Chloride (98-107) mmol/L Carbon Dioxide (22-32) mmol/L BUN (7-17) mg/dL Creatinine (0.52-1.04) mg/dL Estimated GFR (>60) mL/min BUN/Creatinine Ratio (6-22) Glucose (80-110) mg/dL Calcium (8.4-10.2) mg/dL Magnesium (1.6-2.3) mg/dL Total Bilirubin (0.2-1.3) mg/dL AST (14-36) IU/L ALT (<35) IU/L Alkaline Phosphatase (38-126) U/L Total Creatine Kinase (30-135) U/L CK-MB (CK-2) CK-MB (CK-2) Rel Index Troponin I (0.01-0.034) ng/mL Total Protein (6.3-8.2) g/dL Albumin (3.5-5.0) g/dL Globulin (1.7-4.1) g/dL Albumin/Globulin Ratio (1.0-2.8) Lipase (23-300) U/L Urine Color Yellow Urine Appearance Clear Urine pH 5.5 (4.5-8.0) Ur Specific Reliance 1.025 (1.000-1.035) Urine Protein Negative (Negative) Urine Glucose (UA) Negative (Negative) g/dL Urine Ketones Negative (NEGATIVE) Urine Occult Blood 1+ H (Negative) Urine Nitrate Negative (Negative) Urine Bilirubin Negative (NEGATIVE) Urine Urobilinogen 0.2 (0.2) E.U./dL Ur Leukocyte Esterase Negative (NEGATIVE) Urine RBC 0-1/hpf (0-5/HPF) Urine WBC 0-1/hpf (0-5/HPF) Ur Squamous Epith Cells 0-1 /hpf (0-5/HPF) Amorphous Sediment 1+ Urine Bacteria None seen (None) Ur Culture Indicated? Cult not indicated SARS-CoV-2 (PCR) Negative (Negative) Imaging Data Chest x-ray: Radiologist's Impression: [address] [id number] XRay Report Signed Patient: Latanya Mancera MR#: [id number] : 1960 Acct:[id number] Age/Sex: 62 / F Date of Service: 07/14/22 Loc: ED Accession Number: [id number] ?? Procedure: XR chest 1V Ordering Provider: Layo Ch MD PROCEDURE:? XR CHEST 1V ? INDICATIONS:? chest pain ? TECHNIQUE:? One view of the chest was acquired.? ? COMPARISON:? None. ? FINDINGS:? ? Surgical changes and devices:? None.? ? Lungs and pleura:? Lungs are clear.? No pleural effusions or pneumothorax.? ? Mediastinum:? Mediastinal contours appear normal.? Heart size is normal.? ? Bones and chest wall:? No suspicious bony lesions.? Overlying soft tissues appear unremarkable.? ? IMPRESSION:? No acute process. ? ? Dictated by: Suhail Andres M.D. on 07/14/2022 at 15:36 ? ? Approved by: Suhail Andres M.D. on 07/14/2022 at 15:36 ? CT chest PE protocol: Radiologist's Impression: [address] [id number] [address] Scan Report Signed Patient: Latanya Mancera MR#: [id number] : 1960 Acct:[id number] Age/Sex: 62 / F Date of Service: 07/14/22 Loc: ED Accession Number: [id number] ?? Procedure: CT angio chest PE protocol Ordering Provider: Layo Ch MD PROCEDURE:? CT ANGIO CHEST PE PROTOCOL ? INDICATIONS:? Left chest pain ? TECHNIQUE:? After the administration of intravenous contrast, 2 mm thick sections acquired from the pulmonary apices to the posterior costophrenic angles.? 3-dimensional maximum intensity projection (MIP) coronal and sagittal reformats were then acquired through the thorax.? For radiation dose reduction, the following was used:? automated exposure control, adjustment of mA and/or kV according to patient size.? ? COMPARISON:? None. ? FINDINGS:? Image quality:? Excellent.? ? Pulmonary arteries:? Pulmonary arteries are normal in size, and demonstrate no intraluminal filling defects to suggest central pulmonary embolism.? ? Lungs and pleura:? Lungs are clear.? No pleural effusions or pneumothorax.? Central and peripheral airways are patent.? ? Mediastinum:? Heart size is normal, without pericardial effusion.? No mediastinal or hilar adenopathy.? Thoracic aorta is normal in caliber and enhancement.? Esophagus is normal in caliber, without hiatal hernia.? ? Bones and chest wall:? No suspicious bony lesions.? Ribs and thoracic spine appear intact throughout.? Thyroid gland is unremarkable.? No axillary or supraclavicular adenopathy.? ? Abdomen:? There are calcified gallstones in the gallbladder.? No gallbladder wall thickening. ? IMPRESSION:? ? 1. No evidence of acute pulmonary emboli.? No evidence of acute pulmonary process. ? ? 2. Cholelithiasis.? ? Dictated by: Nicolas Morton M.D. on 07/14/2022 at 16:46 ? ? Approved by: Nicolas Morton M.D. on 07/14/2022 at 16:49 ? [facility] Narrative Medical decision making narrative: Patient here with . Complaints constant ongoing left sided chest pain that is reproducible with position. When lying supine she has to turn towards the right otherwise it would hurt her left-sided chest. Increased pain with movement of the left arm as well. No pain with deep breath or coughing. No pain on deep palpation. Has never had this problem before. No prior history or family history of heart attacks. No known injury. No repetitive use of muscle on left chest. No numbness tingling or weakness no syncope. No cough cold or congestion. No urinary complaints. MDM CC: Chest pain Complicating co-morbidities: History of high blood pressure Data collected from: Patient and Medical records reviewed: No previous ER visits for chest pain Differential considered: Includes but not limited to pleurisy pneumonia PE MA angina muscle strain Exam documented above, pertinent findings include: Reproducible left-sided chest pain with movement Lab Test results independently reviewed as above. Pertinent findings: CBC no leukocytosis, CMP no acute renal injury, troponin less than 0.012 AST 23 ALT 27, urinalysis no leukocytes or nitrites Independently reviewed EKG as above normal sinus rhythm rate [address] elevation or depression Imaging studies independently reviewed: Chest x-ray no acute process CT chest PE protocol no acute process no PE Consultations: Treatments: Toradol normal saline Re-evaluations: 5:15 p.m.. Patient is sleeping. I spoke with patient and . states patient never followed up with primary care after I saw her back in March. She is not taken her blood pressure medications since March. At this time I do not believe this is cardiac chest pain. Patient pain is very positional. Has to lay on her right side. Her dizziness is because she hyperventilates due to the pain. Spoke with them that they will need primary care referral for physical therapy. Patient and agree with treatment plan. Short course of pain medication provided. Blood pressure at discharge 155/100. Patient has been compliant with her blood pressure medication for over 5 months. Appropriate for her to take home blood pressure medication when she goes home. Blood pressure here has ranged between 130/67, 145/86, 155/100 Discussion: Appropriate for discharge home. Exam and laboratory studies and imaging are reassuring. This is chest pain that is reproducible with position. Patient otherwise has low heart score. Return precautions reviewed patient and . They do desire discharge home. Not toxic at discharge. Return precautions reviewed with them. They desire discharge home. No repeat troponin indicated. This is reproducible pain. Short course pain medication prescription appropriate for breakthrough pain. Discharge Plan Departure Patient Disposition: Home Clinical Impression: Atypical chest pain Instructions: DI for Atypical Chest Pain Activity Restrictions/Additional Instructions: Please see your family doctor this week for re-evaluation, you will need referral to physical therapy for your ongoing pain. Please do take your home medications. No driving or operating machinery when taking prescribed pain medication. Do not use other pain medications with provided prescribed hydrocodone pain medication. Return if worse if any questions or concerns. Today's laboratory studies and imaging and EKG are reassuring. Prescriptions: New hydrocodone-acetaminophen 5-325 mg tablet 1 tab PO Q6H PRN (Reason: pain) Qty: 15 0RF No Action acetaminophen 500 mg capsule 500 mg PO Q4H MDD Max 3000 mg a day PRN (Reason: fever or pain) Qty: 90 0RF oxycodone 5 mg Tablet See Rx Instructions .ROUTE .COMPLEX PRN (Reason: Pain, Moderate (4-6)) Qty: 42 0RF Rx Instructions: take 1-2 tablets by mouth every 4 hours as needed for moderate-severe pain Referrals: Kimmy Guillen MD [Primary Care Provider] - Stand Alone Forms: Patient Portal/API
--- NOTE | 2022-07-14 15:56 | DI.CT.S_ITS ---
PROCEDURE: CT ANGIO CHEST PE PROTOCOL INDICATIONS: Left chest pain TECHNIQUE: After the administration of intravenous contrast, 2 mm thick sections acquired from the pulmonary apices to the posterior costophrenic angles. 3-dimensional maximum intensity projection (MIP) coronal and sagittal reformats were then acquired through the thorax. For radiation dose reduction, the following was used: automated exposure control, adjustment of mA and/or kV according to patient size. COMPARISON: None. FINDINGS: Image quality: Excellent. Pulmonary arteries: Pulmonary arteries are normal in size, and demonstrate no intraluminal filling defects to suggest central pulmonary embolism. Lungs and pleura: Lungs are clear. No pleural effusions or pneumothorax. Central and peripheral airways are patent. Mediastinum: Heart size is normal, without pericardial effusion. No mediastinal or hilar adenopathy. Thoracic aorta is normal in caliber and enhancement. Esophagus is normal in caliber, without hiatal hernia. Bones and chest wall: No suspicious bony lesions. Ribs and thoracic spine appear intact throughout. Thyroid gland is unremarkable. No axillary or supraclavicular adenopathy. Abdomen: There are calcified gallstones in the gallbladder. No gallbladder wall thickening. IMPRESSION: 1. No evidence of acute pulmonary emboli. No evidence of acute pulmonary process. 2. Cholelithiasis. Dictated by: Nicolas Morton M.D. on 07/14/2022 at 16:46 Approved by: Nicolas Morton M.D. on 07/14/2022 at 16:49
[2022-07-14] MEDS: KETOROLAC 30 MG/ML VIAL 15 MG IV (16:10)
[2022-07-14] MEDS: SODIUM CHLORIDE 0.9% 500 ML 1000 ML IV (16:12)
== END 2022-07-14 17:52 | disposition home or self-care (01) ==
PROVIDERS: Emergency Provider Emergency Medicine; PCP Student in an Organized Health Care Education/Training Program
DX: R07.89 Other chest pain (principal); Z20.822 Contact with and (suspected) exposure to COVID-19
CPT/HCPCS: 36415; 71045; 71275; 80053; 81001; 82550; 83690; 83735; 84484; 85025; 85610; 85730; 87635; 93005; 96361; 96374; 99284; 99285; C9803; J1885; Q9967

== ENCOUNTER 2022-08-13 19:20 | Emergency (ER) | payer OTHER, SELFPAY ==
[2021-11-02 11:46] VITALS: BMI 34.3
--- NOTE | 2022-08-13 19:29 | ED_ITS ---
HPI - General Adult General Chief complaint: Wound/Laceration Stated complaint: cut tip of finger off, L hand pointer finger Time Seen by Provider: 08/13/22 19:26 History of Present Illness HPI narrative: 62-year-old female smoker without significant chronic medical problems presents with an accidental laceration to the tip of her left index finger. She had been using a sharp knife in the kitchen while preparing food when it slipped and she suffered this laceration. She has pain and a moderate amount of bleeding but denies any numbness, tingling or weakness. She is otherwise well and free of complaint. She has full range of motion of her finger. She does state it has been quite some time since she had a tetanus Related Data Previous Rx's Medication Instructions Recorded acetaminophen 500 mg capsule 500 mg PO Q4H PRN fever or pain 11/03/21 #90 caps oxycodone 5 mg tablet See Rx Instructions .Route 11/03/21 .COMPLEX PRN Pain, Moderate (4-6) #42 tabs hydrocodone 5 mg-acetaminophen 325 1 tab PO Q6H PRN pain #15 tabs 07/14/22 mg tablet Allergies Allergy/AdvReac Type Severity Reaction Status Date / Time No Known Drug Allergies Allergy Verified 11/02/21 07:17 Review of Systems Review of Systems Narrative: GENERAL: Denies chills, fatigue, malaise, fever, sweats. HEENT: Denies sinus pain, ear pain, sore throat, difficulty swallowing, dizziness. RESPIRATORY: Denies dyspnea, cough, wheezing, hemoptysis, sputum. CARDIOVASCULAR: Denies chest pain, palpitations, orthopnea, edema, GASTROINTESTINAL: Denies nausea, vomiting, abdominal pain, diarrhea, constipation, melena. : Denies dysuria, frequency, incontinence, hematuria, urinary retention. MUSCULOSKELETAL: See HPI SKIN: Denies rash, skin lesions, or other NEUROLOGIC: Denies weakness, headache, numbness, change in speech, confusion, seizures, incoordination. PSYCHIATRIC: No concerning psychosocial issues. 12 point review of systems is negative except for those stated above Patient History Medical History Anesthesia Hypertension Obesity TERRANCE on CPAP Parotitis UTI (urinary tract infection) Surgical History Hx of dilation and curettage Family History Father Hypertension Diabetes mellitus Stroke Heart disease Mother Cancer Gallstones Social History household members: spouse Smoking Status: Current some day smoker alcohol intake: current Smoking Status: Current some day smoker tobacco type: cigarettes alcohol intake frequency: holidays/special occasions only Substance Use Type: does not use Exam Narrative Exam Narrative: GEN: AOx3 and in mild distress EYES: Pupils are equal, round, and reactive to light and accommodation. Extraoccular muscles are intact bilaterally. There is no subconjunctival hemorrhage or exudate. CHEST: Lungs are clear to auscultation bilaterally and free of wheezes, rales, or rhonchi. Heart rate is regular rhythm, there are no murmurs, clicks, rubs, or gallops. There is no chest wall tenderness. ABD: Abdomen is soft and nontender. There is no guarding or rebound. Bowel sounds are normal in all 4 quadrants. There is no mass or organomegaly. EXT: 0.5 x 0.5 area of soft tissue loss consistent with avulsion laceration at the tip of left index finger, no bony involvement, no nail bed involvement, no foreign bodies there is active bleeding Full painless ROM of all extremities with no loss of sensation or strength. SKIN: Warm, pink, and dry. No erythema or rash Initial Vital Signs Initial Vital Signs: Vital Signs Temperature 98 F 08/13/22 19:30 Pulse Rate 90 08/13/22 19:30 Respiratory Rate 18 08/13/22 19:30 Blood Pressure 161/92 H 08/13/22 19:30 Pulse Oximetry 98 08/13/22 19:30 Oxygen Delivery Method Room Air 08/13/22 19:30 Procedures Laceration Repair Laceration 1: Site: hand Side (If applicable): left Size (cm): 0.5 Description: other (avulsion) Depth: simple, single layer Pre-repair: wound explored and cleansed with chlorhexadine Skin layer closed with: nylon Skin layer suture size: 4-0 Number of sutures: 2 Technique: simple, interrupted (for hemostasis only) Nerve Block Nerve Block 1: Time out performed: Yes Amount of anesthesia used (mL): 3 Side: left Nerve Blocks: digital Procedure Successful: Yes Patient Tolerated Procedure: Well Complications: none Course Orders Ordered: Discontinued Medications Diphtheria/Tetanus/Acell Pertussis (Tet,Diph,Pertuss(Acell),Vac/Pf 0.5 Ml Syringe) 0.5 ml IM .ONCE ONE Stop: 08/13/22 19:52 Last Admin: 08/13/22 19:58 Dose: 0.5 ml Documented By: TINY Vital Signs Vital signs: Vital Signs - 8 hr 08/13/22 19:30 08/13/22 20:02 Temperature 98 F Pulse Rate 90 83 Respiratory Rate 18 18 Blood Pressure 161/92 H 146/80 H Pulse Oximetry 98 97 Oxygen Delivery Method Room Air Room Air Medical Decision Making [facility] Narrative Medical decision making narrative: [62] year old patient presents with fingertip laceration Multiple etiologies for patient's symptoms considered including, but not limited to: [Laceration, foreign body, nail bed involvement] Prior Charts reviewed in our EMR Primary Historian: patient Patient evaluated, no bony involvement or exposure, tetanus updated, digital block performed with appropriate anesthesia, 2 sutures placed for hemostasis only with nonstick gauze and tube gauze placed. I discussed with patient the low likelihood of infection, it bled a large amount which helps clean, we then cleansed with chlorhexidine. She is given appropriate wound care instructions and knows to look for increasing redness, pain, swelling, drainage. She understands the importance of close follow-up. We did discuss that this will likely granulate in without difficulty but it will take longer than a typical laceration and in some, more complicated but typically larger avulsion type lacerations further care by Wound Care and even possibly skin graft is needed Patient's symptoms improved over duration of stay with above-stated therapies. Findings and discharge diagnosis discussed with patient/family followed by verbalization of understanding Return precautions discussed with patient/family whom verbalize understanding of diagnosis and plan Discharge Plan Departure Patient Disposition: Home Clinical Impression: Laceration of left index finger Instructions: DI for Laceration Repair Activity Restrictions/Additional Instructions: Please keep the wound clean and dry to the best of your ability. Please monitor for signs of infection such as redness to the skin or increasing pain. Have the sutures/jas removed by your doctor in about 7 days. If you are unable to get into your doctor, we would be happy to remove the sutures/jas in that same timeframe. Prescriptions: No Action hydrocodone-acetaminophen 5-325 mg tablet 1 tab PO Q6H PRN (Reason: pain) Qty: 15 0RF acetaminophen 500 mg capsule 500 mg PO Q4H MDD Max 3000 mg a day PRN (Reason: fever or pain) Qty: 90 0RF oxycodone 5 mg Tablet See Rx Instructions .ROUTE .COMPLEX PRN (Reason: Pain, Moderate (4-6)) Qty: 42 0RF Rx Instructions: take 1-2 tablets by mouth every 4 hours as needed for moderate-severe pain Referrals: Kimmy Guillen MD [Primary Care Provider] - Stand Alone Forms: Patient Portal/API
[2022-08-13 19:30] VITALS: BP 161/92; PULSE 90; RESP 18; TEMP 36.6; O2SAT 98; BMI 33.6
[2022-08-13] MEDS: TET,DIPH,PERTUSS(ACELL),VAC/PF 0.5 ML SYRINGE IM (19:58)
[2022-08-13 20:02] VITALS: BP 146/80; PULSE 83; RESP 18; O2SAT 97
--- NOTE | 2022-08-13 20:02 | PC.NURSE ---
dsg applied, sugicel, nonadhearent, tube gauze, gave extra nonadherenat and tube gauze to pt.
== END 2022-08-13 20:04 | disposition home or self-care (01) ==
PROVIDERS: Emergency Provider Emergency Medicine; PCP Student in an Organized Health Care Education/Training Program
DX: S61.211A Laceration without foreign body of left index finger without damage to nail, initial encounter (principal); W26.0XXA Contact with knife, initial encounter; Z23 Encounter for immunization
CPT/HCPCS: 12001; 90471; 99283; 90715

== ENCOUNTER 2023-01-10 07:59 | Observation (INO) | payer OTHER, SELFPAY ==
[2021-11-02 11:46] VITALS: BMI 34.3
[2023-01-10] VITALS (25 sets, daily range): BP systolic 157–197; BP diastolic 85–117; PULSE 61–82; RESP 12–26; TEMP 36.4–36.6; O2SAT 92–100; BMI 33.5
--- NOTE | 2023-01-10 | DI.MRI.S_ITS ---
PROCEDURE: MR AB PANCREATIC/MRCP PROTOCOL INDICATIONS: GALLSTONES TECHNIQUE: Coronal HASTE through the abdomen, axial 2-D FLASH in- and ang-pv-bgapm, and breath-hold T2 FSE with fat saturation through the biliary system and pancreas. Oblique coronal and axial thin-slice HASTE, radial thick-slab HASTE centered on the extrahepatic bile ducts. Intravenous secretin: Not requested. COMPARISON: [facility], , ABDOMEN LIMITED, 01/10/2023, 9:23. FINDINGS: Image quality: Excellent. Liver: No solid mass. Mild signal dropout on the in phase sequence, consistent with mild hepatic steatosis. Gallbladder and biliary tree: Cholelithiasis. Gallbladder wall thickening with wall striation. Mild pericholecystic edema. Spleen: Normal size. Pancreas: No ductal dilation. Adrenal glands: 1.3 cm left adrenal nodule with signal dropout on the out of phase sequence, most consistent with a benign adrenal adenoma Kidneys: No hydronephrosis. No solid mass. No complex renal cysts which requires follow-up. Nodes and vessels: No retroperitoneal or mesenteric adenopathy by size criteria. Aorta and inferior vena cava are normal in size. Bowel and peritoneum: Unenhanced bowel loops are normal in caliber. No free fluid. Lung bases: No basal pleural effusions. Heart size is normal. Bones and soft tissues: Small umbilical hernia containing fat. Bone marrow is of normal overall signal. IMPRESSION: Acute cholecystitis without choledocholithiasis. Dictated by: Theo Claros M.D. on 01/10/2023 at 18:28 Approved by: Theo Claros M.D. on 01/10/2023 at 18:32
[2023-01-10] MEDS: KETOROLAC 30 MG/ML VIAL 15 MG IV ×2 (08:34→17:21)
[2023-01-10] MEDS: ONDANSETRON 4 MG/2 ML INJ IV (08:34)
[2023-01-10 08:39] LABS: Add Manual Diff / Slide Review NO; Basophils Absolute Auto 100 /uL (0-100); Eosinophils Absolute Auto 100 /uL (0-450); Eosinophils Percent Auto 1.1 % (2-4); Hematocrit 43.7 % (36-46); Hemoglobin 14.9 g/dL (12.0-16.0); Lymphocytes Absolute Auto 1000 /uL (1100-4500); Lymphocytes Percent Auto 13.4 % (25-40); Mean Corpuscular HGB Conc 34.1 % (30-36); Mean Corpuscular Hemoglobin 28.9 PG (26-34); Mean Corpuscular Volume 84.7 fL (80-100); Monocytes Absolute Auto 600 /uL (0-900); Monocytes Percent Auto 7.6 % (3-14); Neutrophils Absolute Auto 5700 /uL (1500-7000); Neutrophils Percent Auto 76.9 % (50-75); Platelet Count 243 X10^3/uL (150-400); Red Blood Cell Count 5.16 X10^6/uL (4.0-5.2); White Blood Cell Count 7.4 X10^3/uL (4.5-11.0)
[2023-01-10 08:46] LABS: Alanine Aminotransferase 628 IU/L (<35); Albumin 4.2 g/dL (3.5-5.0); Albumin Globulin Ratio 1.2 (1.0-2.8); Alkaline Phosphatase 191 U/L (38-126); Bilirubin Total 2.2 mg/dL (0.2-1.3); Blood Urea Nitrogen 12 mg/dL (7-17); Calcium 9.1 mg/dL (8.4-10.2); Carbon Dioxide 24 mmol/L (22-32); Chloride 104 mmol/L (98-107); Estimated Glomerular Filt Rate > 60 mL/min (>60); Globulin 3.5 g/dL (1.7-4.1); Glucose 123 mg/dL (80-110); Lipase 102 U/L (23-300); Potassium 4.2 mmol/L (3.4-5.1); Sodium 137 mmol/L (137-145); Total Protein 7.7 g/dL (6.3-8.2)
--- NOTE | 2023-01-10 08:52 | ED_ITS ---
HPI - Abdominal Pain General Chief Complaint: Abdominal Pain Stated Complaint: think gallbladder issue, vomiting Time Seen by Provider: 01/10/23 08:52 Source: patient Mode of arrival: Ambulatory Limitations: no limitations History of Present Illness HPI narrative: This is a 62-year-old female presents with complaint of abdominal pain she states starts more on her left upper quadrant but does radiate over to the right her chest and back. She states she is had issues on and off for the past she was told it was her gallbladder. She states food does make it worse. Last night started had any episode that was worse than typical and started having nausea and vomiting so presented this morning. She states no fevers or chills. No chest pain currently. She did have chest pain last night. But states it was started after the abdominal pain. No shortness of breath. No dysuria urgency or frequency. No diarrhea constipation, no black or bloody stools. No swelling of her extremities. She states she was told she should have her gallbladder out but states she only had mild episodes so did not pursue this. Has a history of hypertension, prior hip surgeries. No known drug allergies. Does use tobacco daily, denies alcohol, occasional CBD but no other recreational drugs. Her primary care is Dr. Kimmy Fish through the [facility]. Patient had Toradol and zofran prior to my evaluation and is feeling much better. Related Data Previous Rx's Medication Instructions Recorded acetaminophen 500 mg capsule 500 mg PO Q4H PRN fever or pain 11/03/21 #90 caps oxycodone 5 mg tablet See Rx Instructions .Route 11/03/21 .COMPLEX PRN Pain, Moderate (4-6) #42 tabs hydrocodone 5 mg-acetaminophen 325 1 tab PO Q6H PRN pain #15 tabs 07/14/22 mg tablet Allergies Allergy/AdvReac Type Severity Reaction Status Date / Time No Known Drug Allergies Allergy Verified 01/10/23 08:17 Review of Systems Review of Systems ROS Unobtainable: All systems reviewed & are unremarkable except as noted in HPI and below Patient History Medical History Anesthesia Hypertension Obesity TERRANCE on CPAP Parotitis UTI (urinary tract infection) Surgical History Hx of dilation and curettage Family History Father Hypertension Diabetes mellitus Stroke Heart disease Mother Cancer Gallstones Social History household members: spouse Smoking Status: Current some day smoker alcohol intake: current Smoking Status: Current some day smoker tobacco type: cigarettes alcohol intake frequency: holidays/special occasions only Substance Use Type: does not use Exam Narrative Exam Narrative: GENERAL: Alert and oriented x three, female in moderate distress. HEENT: Head normocephalic, atraumatic, EOMI, pupils reactive, face symmetric, moist mucous membranes NECK: Supple, full range of motion CARDIOVASCULAR: Regular rate and rhythm without murmurs, rubs or gallops. RESPIRATORY: Breath sounds equal bilaterally, no wheezes rales or rhonchi. ABDOMEN: Soft, mild bilateral upper abdominal tenderness. Normoactive bowel sounds all 4 quadrants. No guarding or rebound, rigidity, no mass, no bruit or pulsatile mass. : No CVA tenderness EXTREMITIES: Normal range of motion, no clubbing or edema. Neurovascularly intact NEUROLOGICAL: Cranial nerves II through XII grossly intact. Moving all extremities SKIN: Warm, dry, no petechiae, no rashes or lesions. Initial Vital Signs Initial Vital Signs: Vital Signs Temperature 97.8 F 01/10/23 08:13 Pulse Rate 73 01/10/23 08:13 Respiratory Rate 20 01/10/23 08:13 Blood Pressure 181/110 H 01/10/23 08:13 Pulse Oximetry 96 01/10/23 08:13 Oxygen Delivery Method Room Air 01/10/23 08:13 Course Orders Ordered: Sodium Chloride (Normal Saline 0.9%) 1,000 mls @ 125 mls/hr IV CONT NEIL Last Admin: 01/10/23 16:04 Dose: 125 mls/hr Documented By: IONA Ondansetron HCl (Ondansetron 4 Mg Odt) 4 mg PO NOW PRN PRN Reason: Nausea And Vomiting Ondansetron HCl (Ondansetron 4 Mg/2 Ml Inj) 4 mg IV NOW PRN PRN Reason: Nausea And Vomiting Last Admin: 01/10/23 08:34 Dose: 4 mg Documented By: OW Discontinued Medications Sodium Chloride (Normal Saline 0.9%) 1,000 mls @ 1,000 mls/hr IV BOLUS ONE Stop: 01/10/23 10:12 Last Infusion: 01/10/23 12:39 Dose: 0 mls/hr Documented By: Admin: 01/10/23 09:24 Dose: 1,000 mls/hr Documented By: IONA Piperacillin Sod/Tazobactam (Sod 4.5 gm/ Sodium Chloride) 100 mls @ 200 mls/hr IV NOW ONE Stop: 01/10/23 18:47 Ketorolac Tromethamine (Ketorolac 30 Mg/Ml Vial) 15 mg IV NOW ONE Stop: 01/10/23 08:32 Last Admin: 01/10/23 08:34 Dose: 15 mg Documented By: IONA Ketorolac Tromethamine (Ketorolac 30 Mg/Ml Vial) 15 mg IV NOW ONE Stop: 01/10/23 17:18 Last Admin: 01/10/23 17:21 Dose: 15 mg Documented By: IONA Lorazepam (Lorazepam 2 Mg/Ml Inj) 0.5 mg IV NOW ONE Stop: 01/10/23 14:27 Last Admin: 01/10/23 14:31 Dose: 0.5 mg Documented By: IONA Lorazepam (Lorazepam 2 Mg/Ml Inj) 1 mg IV NOW ONE Stop: 01/10/23 17:19 Last Admin: 01/10/23 17:44 Dose: 1 mg Documented By: IONA Morphine Sulfate (Morphine 4 Mg/Ml Inj) 4 mg IV NOW ONE Stop: 01/10/23 11:29 Last Admin: 01/10/23 11:36 Dose: 4 mg Documented By: IONA Vital Signs Vital signs: Vital Signs - 8 hr 01/10/23 12:00 01/10/23 12:30 01/10/23 13:00 Pulse Rate 66 65 61 Respiratory Rate 16 12 16 Blood Pressure Pulse Oximetry 96 97 96 Oxygen Delivery Method 01/10/23 13:30 01/10/23 14:00 01/10/23 15:01 Pulse Rate 63 65 64 Respiratory Rate 16 15 15 Blood Pressure 175/99 H Pulse Oximetry 98 100 97 Oxygen Delivery Method 01/10/23 15:30 01/10/23 16:00 01/10/23 16:30 Pulse Rate 65 73 68 Respiratory Rate 20 24 23 Blood Pressure 160/98 H 163/86 H 172/88 H Pulse Oximetry 97 98 99 Oxygen Delivery Method Room Air Room Air 01/10/23 17:00 01/10/23 17:30 Pulse Rate 72 68 Respiratory Rate 18 17 Blood Pressure 197/107 H 188/90 H Pulse Oximetry 98 98 Oxygen Delivery Method Room Air Room Air MDM - Abdominal Pain Lab Data 01/10/23 08:25 01/10/23 08:25 Labs: Lab Results 01/10/23 01/10/23 Range/Units 08:25 08:25 WBC 7.4 (4.5-11.0) X10^3/uL RBC 5.16 (4.0-5.2) X10^6/uL Hgb 14.9 (12.0-16.0) g/dL Hct 43.7 (36-46) % MCV 84.7 (80-100) fL MCH 28.9 (26-34) PG MCHC 34.1 (30-36) % RDW 14.0 (11.6-14.8) % Plt Count 243 (150-400) X10^3/uL Neut % (Auto) 76.9 H (50-75) % Lymph % (Auto) 13.4 L (25-40) % Douglas % (Auto) 7.6 (3-14) % Eos % (Auto) 1.1 L (2-4) % Baso % (Auto) 1.0 (0-2) % Neut # (Auto) 5700 (7121-5530) /uL Lymph # (Auto) 1000 L (1068-1657) /uL Douglas # (Auto) 600 (0-900) /uL Eos # (Auto) 100 (0-450) /uL Baso # (Auto) 100 (0-100) /uL Sodium 137 (137-145) mmol/L Potassium 4.2 (3.4-5.1) mmol/L Chloride 104 (98-107) mmol/L Carbon Dioxide 24 (22-32) mmol/L BUN 12 (7-17) mg/dL Creatinine 0.63 (0.52-1.04) mg/dL Estimated GFR > 60 (>60) mL/min BUN/Creatinine Ratio 19.0 (6-22) Glucose 123 H (80-110) mg/dL Calcium 9.1 (8.4-10.2) mg/dL Total Bilirubin 2.2 H (0.2-1.3) mg/dL AST 994 H (14-36) IU/L ALT 628 H (<35) IU/L Alkaline Phosphatase 191 H (38-126) U/L Total Protein 7.7 (6.3-8.2) g/dL Albumin 4.2 (3.5-5.0) g/dL Globulin 3.5 (1.7-4.1) g/dL Albumin/Globulin Ratio 1.2 (1.0-2.8) Lipase 102 (23-300) U/L Point of care testing: Point of Care Testing Test Results Negative Urine Dip Bedside Urine Glucose Negative Bedside Urine Bilirubin - Negative Bedside Urine Ketone - Negative Urine Specific Holloway 1.01 Bedside Urine Occult Blood - Negative Bedside Urine pH 7 Bedside Urine Protein - Negative Bedside Urine Urobilinogen - Negative Bedside Urine Nitrite - Negative Bedside Urine Leukocytes - Negative Esterase Imaging Data US - abdomen: Radiologist's Impression: Close Abdomen Ultrasound (Signed) Jason Roman - 01/10/23 Launch?[address] [address] Ultrasound Report Signed Patient: Latanya Mancera MR#: [id number] : 1960 Acct:[id number] Age/Sex: 62 / F Date of Service: 01/10/23 Loc: ED Accession Number: [id number] ?? Procedure: US abdomen limited Ordering Provider: Netta Ortega D.O. PROCEDURE: US ABDOMEN LIMITED ? INDICATIONS:? ELEVATED LFTS; EPIGASTRIC PAIN ? TECHNIQUE:? Real-time focused scanning was performed of the abdomen, with image documentation.? ? COMPARISON:? [facility], US ABDOMEN LIMITED, 03/11/2021, 1:03. ? FINDINGS:? Visualized pancreas is unremarkable sonographically.? Several gallstones are present.? No definite gallbladder wall thickening demonstrated.? A sonographic M urphy sign was documented by the feeder catcher tobacco.? Liver length of 15.7 cm.? The liver is echogenic.? No biliary ductal dilation.? The extrahepatic bile duct measures 6 mm. ? IMPRESSION:? 1. Cholelithiasis is present.? No definitive gallbladder wall thickening demonstrated, however a positive sonographic [place] sign was elicited during the exam.? Findings are considered equivocal for acute cholecystitis, clinical correlation is recommended. 2. The liver is echogenic, a nonspecific finding commonly seen in the setting of steatosis.? ? ? Dictated by: Jason Roman M.D. on 01/10/2023 at 10:04 ? ? Approved by: Jason Roman M.D. on 01/10/2023 at 10:07?? MRCP: Radiologist's Impression: [address] [address] Magnetic Resonance Report Signed Patient: Latanya Mancera MR#: [id number] : 1960 Acct:[id number] Age/Sex: 62 / F Date of Service: 01/10/23 Loc: ED Accession Number: [id number] ?? Procedure: MR Ab Pancreatic/MRCP protocol Ordering Provider: Netta Ortega D.O. PROCEDURE:? MR AB PANCREATIC/MRCP PROTOCOL ? INDICATIONS:? GALLSTONES ? TECHNIQUE:? Coronal HASTE through the abdomen, axial 2-D FLASH in- and [id number], and breath-hold T2 FSE with fat saturation through the biliary system and pancreas.? Oblique coronal and axial thin-slice HASTE, radial thick-slab HASTE centered on the extrahepatic bile ducts.? ? ? Intravenous secretin:? Not requested.? ? COMPARISON:? [facility], , US ABDOMEN LIMITED, 01/10/2023, 9:23. ? FINDINGS:? Image quality:? Excellent.? ? Liver: No solid mass.? Mild signal dropout on the in phase sequence, consistent with mild hepatic steatosis. Gallbladder and biliary tree:? Cholelithiasis.? Gallbladder wall thickening with wall striation.? Mild pericholecystic edema. Spleen:? Normal size. Pancreas:? No ductal dilation. Adrenal glands:? 1.3 cm left adrenal nodule with signal dropout on the out of phase sequence, most consistent with a benign adrenal adenoma Kidneys:? No hydronephrosis. No solid mass.? No complex renal cysts which requires follow-up. Nodes and vessels:? No retroperitoneal or mesenteric adenopathy by size criteria.? Aorta and inferior vena cava are normal in size.? ? Bowel and peritoneum:? Unenhanced bowel loops are normal in caliber.? No free fluid.? ? Lung bases:? No basal pleural effusions.? Heart size is normal.? ? Bones and soft tissues:? Small umbilical hernia containing fat.? Bone marrow is of normal overall signal.? ? IMPRESSION:? Acute cholecystitis without choledocholithiasis. ? ? Dictated by: Theo Claros M.D. on 01/10/2023 at 18:28 ? ? Approved by: Theo Claros M.D. on 01/10/2023 at 18:32?? ECG Data Attestation: I personally reviewed and interpreted this ECG as follows: Prior ECG tracings: available for review Interpretation: Sinus rhythm rate of 71 DE 140 QRS 84 QTC 441. No acute ST changes appreciated. Patient has prior from 07/14/2022 which appears similar. MDM Narrative Medical decision making narrative: This is a 62-year-old female who presents with sudden-onset abdominal pain believes she is having a gallbladder attack states it feels very similar she describes it starting more in the left but radiates over to the right towards her chest. Last night she also started having nausea and vomiting which is not happened as frequently and she states this is much versus typical. Patient had Toradol and Zofran with some improvement. She is hypertensive no tachycardia or fever. Labs show elevation of bilirubin at 2.2 she was 0.3 in July of 2022 and LFTs with an AST of 994 and an ALT of 628 and an alk-phos of 191, normal lipase. Patient has normal renal function and electrolytes glucose is 123. CBC shows no leukocytosis normal hemoglobin and platelets. Right upper quadrant ult rasound was obtained, shows gallstones report does not mention but tech noted were not mobile on exam, no definitive gallbladder wall thickening but positive Colorado's sign. Liver is echogenic nonspecific finding commonly seen with steatosis liver length is 50.7 cm no biliary ductal dilation extrahepatic bile duct measures [address] Mgcee, General Surgery: As per MRCP. Attempted MRCP patient received sedation prior to and was unsuccessful. Updated Dr. Mcgee who recommends transfer for potential ERCP. Spoke with Dr. Segura, gastroenterology at [facility] she recommends trending out LFTs and/or intraoperative cholangiogram she does not recommend transfer this time for ERCP she would do watchful waiting. Patient is open to attempting MRCP again was some additional sedation. Patient was MRCP which shows cholecystitis and no choledocholithiasis. Dr. Mcgee was updated accepts for admission. Can have clear liquids until midnight was given a dose of Zosyn here in the department. Discharge Plan Departure Patient Disposition: Admitted as Observation Clinical Impression: Cholelithiasis Admit Date/Time: 01/10/23 18:57 Admit Provider: Gerardo Mcgee
[2023-01-10 08:57] LABS: HEMOLYSIS 38 (0-50)
[2023-01-10 08:58] LABS: Aspartate Aminotransferase 994 IU/L (14-36)
--- NOTE | 2023-01-10 09:13 | DI.US.S_ITS ---
PROCEDURE: US ABDOMEN LIMITED INDICATIONS: ELEVATED LFTS; EPIGASTRIC PAIN TECHNIQUE: Real-time focused scanning was performed of the abdomen, with image documentation. COMPARISON: [facility], , US ABDOMEN LIMITED, 03/11/2021, 1:03. FINDINGS: Visualized pancreas is unremarkable sonographically. Several gallstones are present. No definite gallbladder wall thickening demonstrated. A sonographic [place] sign was documented by the patient scheduling manager. Liver length of 15.7 cm. The liver is echogenic. No biliary ductal dilation. The extrahepatic bile duct measures 6 mm. IMPRESSION: 1. Cholelithiasis is present. No definitive gallbladder wall thickening demonstrated, however a positive sonographic [place] sign was elicited during the exam. Findings are considered equivocal for acute cholecystitis, clinical correlation is recommended. 2. The liver is echogenic, a nonspecific finding commonly seen in the setting of steatosis. Dictated by: Jason Roman M.D. on 01/10/2023 at 10:04 Approved by: Jason Roman M.D. on 01/10/2023 at 10:07
[2023-01-10] MEDS: SODIUM CHLORIDE 0.9% 1,000 ML 1000 ML IV (09:24)
[2023-01-10] MEDS: MORPHINE 4 MG/ML INJ IV (11:36)
[2023-01-10] MEDS: LORazepam 2 MG/ML INJ 0.5 MG IV (14:31)
[2023-01-10] MEDS: SODIUM CHLORIDE 0.9% 1,000 ML 125 ML IV (16:04)
--- NOTE | 2023-01-10 17:25 | PC.NURSE ---
Pt reports not taking her BP medication consistently and has not taken her lisinopril in 3-4days. Pt states that she is supposed to take 5mg lisinopril once daily. aware.
[2023-01-10] MEDS: LORazepam 2 MG/ML INJ 1 MG IV (17:44)
[2023-01-10] MEDS: PIPERACILLIN/TAZO 4.5 GM in SODIUM CHLORIDE 0.9% 100 ML IV (19:44)
[2023-01-10] MEDS: LACTATED RINGERS 1,000 ML 100 ML IV (21:19)
--- NOTE | 2023-01-10 22:17 | PC.NURSE ---
Pt. admitted to room 210, oriented to her room. Showed her bed & TV controls, denies any fall at home. Encouraged to call for any assistance if she needed to get up to the BR. Denies any nausea & pain, will continue plan of care & monitor.
[2023-01-11] VITALS (13 sets, daily range): BP systolic 136–178; BP diastolic 56–95; PULSE 63–96; RESP 15–20; TEMP 35.9–37.1; O2SAT 93–100; BMI 33.5
--- NOTE | 2023-01-11 | PATH_ITS ---
[facility] Accession Number: [id number] No. of containers..01 Tissue . 01 Material submitted: . gallbladder - GALLBLADDER . 01 Diagnosis: Gallbladder, Cholecystectomy: Chronic cholecystitis with cholelithiasis. Negative for dysplasia and malignancy. [facility] 01/20/2023 1335 Local . 01 Electronically signed: . Jaclyn Darden MD, Pathologist NPI- [id number] . 01 Gross description: . The specimen is received in formalin labeled with the patient's name, , and gallbladder consists of a single intact gallbladder measuring 8.3 x 3.7 x 2.8 cm. The serosal surface is green-yellow and smooth. No pericystic lymph nodes are seen. The cystic duct is clamped, unobstructed and inked blue. The gallbladder is opened to reveal a lumen completely filled with jiménez-black viscous bile and yellow bosselated to black and sand-like calculi aggregating to 4.8 x 1.8 x 1.8 cm. The mucosal surface is green and velvety with no polyps or lesions seen. The wall measures up to 0.4 cm in thickness. Laboratory Animal Facility Supervisor sections to include the cystic duct margin are submitted in cassette A1. ([id number]) /MRV 01/12/2023 1609 Local . 01 Pathologist provided ICD-10: K80.60 . 01 CPT . 690046 Specimen Comment: A courtesy copy of this report has been sent to [phone] Performed at: 01 [facility] [address] [place] [address], [place], [place] [id number] MD Miguel Angel Evans MD Phone: [phone]
[2023-01-11] MEDS: HYDROCODONE/ACET 5/325 TABLET 1 TAB PO (05:38)
[2023-01-11 06:59] LABS: Add Manual Diff / Slide Review NO; Basophils Absolute Auto 100 /uL (0-100); Basophils Percent Auto 1.1 % (0-2); Eosinophils Absolute Auto 200 /uL (0-450); Eosinophils Percent Auto 3.1 % (2-4); Hematocrit 38.8 % (36-46); Hemoglobin 13.2 g/dL (12.0-16.0); Lymphocytes Absolute Auto 1300 /uL (1100-4500); Lymphocytes Percent Auto 19.4 % (25-40); Mean Corpuscular HGB Conc 34.1 % (30-36); Mean Corpuscular Volume 85.2 fL (80-100); Monocytes Absolute Auto 500 /uL (0-900); Monocytes Percent Auto 7.3 % (3-14); Neutrophils Absolute Auto 4500 /uL (1500-7000); Neutrophils Percent Auto 69.1 % (50-75); Platelet Count 181 X10^3/uL (150-400); Red Blood Cell Count 4.56 X10^6/uL (4.0-5.2); Red Cell Distribution Width 14.4 % (11.6-14.8); White Blood Cell Count 6.5 X10^3/uL (4.5-11.0)
[2023-01-11 07:07] LABS: Alanine Aminotransferase 445 IU/L (<35); Albumin 3.5 g/dL (3.5-5.0); Albumin Globulin Ratio 1.2 (1.0-2.8); Alkaline Phosphatase 172 U/L (38-126); Aspartate Aminotransferase 349 IU/L (14-36); BUN Creatinine Ratio 12.3 (6-22); Bilirubin Total 1.4 mg/dL (0.2-1.3); Blood Urea Nitrogen 7 mg/dL (7-17); Calcium 8.5 mg/dL (8.4-10.2); Carbon Dioxide 25 mmol/L (22-32); Chloride 105 mmol/L (98-107); Estimated Glomerular Filt Rate > 60 mL/min (>60); Globulin 2.9 g/dL (1.7-4.1); Glucose 91 mg/dL (80-110); HEMOLYSIS < 15 (0-50); Potassium 3.7 mmol/L (3.4-5.1); Sodium 136 mmol/L (137-145); Total Protein 6.4 g/dL (6.3-8.2)
[2023-01-11] MEDS: LACTATED RINGERS 1,000 ML 100 ML IV ×3 (07:48→18:15)
--- NOTE | 2023-01-11 11:44 | CM.DANOTE ---
DCP Assessment Note: Patient is a 62yo female here for pain/nausea/vomiting. Gallbladder surgery scheduled for 4:30pm with Dr. Mcgee later today. PCP Kimmy Aden and self pay RETAIL SALES CLERK reviewed EMR. Per nursing staff, surgery is scheduled for 4:30pm today. RETAIL SALES CLERK entered room and introduced self and role. Patient was laying in bed and appeared A/Ox4 and was groaning in pain. Patient lives in [place] with her Ash ([phone]). Patient owns a walker/other DME from previous hip surgeries but doesn't use it since recovering. Patient is active and independent at baseline and drives. Patient reports likely having no needs from CM but will see how she is after surgery. Patient did not appear like she wanted to speak much due to pain. Patient asked questions about her surgery. RETAIL SALES CLERK acted within area of competency and referred patient to surgical staff/nursing staff. Patient requested to speak with nurse for more pain meds. RETAIL SALES CLERK updated nurse that patient is requesting pain management meds. Plan: likely d/c home with spouse in POV, can transport, when medically stable. CM team will continue to follow closely for needs. HAZEL Larsen Discharge Planning/Care Management CM Discharge Assessment Start: 01/11/23 11:41 Freq: Status: Active Protocol: Document 01/11/23 11:41 (Rec: 01/11/23 11:44 [id number]) Discharge Planning Assessment Assigned Product Design Manager HAZEL Michelle DPOA/Assigned Designee Name Ash Mancera (spouse) Contact Information [phone] Advance Directives? No History Provided By Patient,Medical Record Prior Living Arrangements House Household Members spouse Type of transporation used prior to Drives own vehicle admit Willing to Return to Facility? No Independent with ADL's Yes Is patient alert and oriented? Yes DME Already Rented / Owned FWW / Walker Comment history of hip surgery Discharge Plan Home Transportation Arrangement spouse in PO Whiteboard Updated in Patient Room with Yes name and ext. # of Product Design Manager Review Status In Process Next Review Type Continued Stay Review
[2023-01-11] MEDS: ONDANSETRON 4 MG/2 ML INJ IV ×2 (11:46→18:45)
[2023-01-11] MEDS: HYDROMORPHONE 0.5 MG INJ IV (11:46)
[2023-01-11] MEDS: SCOPOLAMINE 1 PATCH TOP (16:48)
--- NOTE | 2023-01-11 17:09 | PM.HP.1 ---
History of Present Illness History of Present Illness Date Patient Seen: 01/11/23 Time Patient Seen: 17:09 Chief complaint: think gallbladder issue, vomiting Narrative: 62-year-old woman who presented to the emergency department last night with severe abdominal pain principally of the right upper quadrant. At admission afebrile, no leukocytosis total bilirubin 1.4 AST 350, ALT 450. Abdominal ultrasound demonstrates a thick walled gallbladder with stones a MRCP was obtained which demonstrated the same findings in addition to no evidence of choledocholithiasis. She was admitted to the hospital as received Zosyn and her pain has improved. Over the past several years she is had several episodes of postprandial biliary colic. [facility], [facility] Medical History Anesthesia Hypertension Obesity TERRANCE on CPAP Parotitis UTI (urinary tract infection) Surgical History Hx of dilation and curettage Family History Father Hypertension Diabetes mellitus Stroke Heart disease Mother Cancer Gallstones Social History household members: spouse Smoking Status: Current some day smoker alcohol intake: current Meds Home Medications and Allergies Home Medications Medication Instructions Recorded Confirmed Type oxycodone 5 mg tablet 5 mg PO Q6H PRN pain #20 tabs 01/11/23 Rx semaglutide (weight loss) 0.25 0.25 mg SUBCUT QWEEK 01/11/23 01/11/23 History mg/0.5 mL subcutaneous pen injector Allergies Allergy/AdvReac Type Severity Reaction Status Date / Time No Known Drug Allergies Allergy Verified 01/11/23 15:26 Exam Vital Signs (past 8 hours): - 01/11/23 09:13 01/11/23 15:00 01/11/23 15:50 Temperature 98.2 F 98.8 F 97.0 F L Pulse Rate 64 64 73 Respiratory Rate 16 16 Blood Pressure 173/95 H 138/71 145/92 H Pulse Oximetry 97 94 96 Oxygen Delivery Method Room Air Oxygen Delivery Method Room Air Oxygen Flow Rate 0 Narrative Exam Narrative: General adult woman alert oriented no acute distress Chest nonlabored respiration Abdomen tender right upper quadrant no rebound. Objective Labs 01/11/23 06:35 01/11/23 06:35 Labs: Laboratory Results - last 24 hr 01/11/23 01/11/23 06:35 06:35 WBC 6.5 RBC 4.56 Hgb 13.2 Hct 38.8 MCV 85.2 MCH 29.0 MCHC 34.1 RDW 14.4 Plt Count 181 Neut % (Auto) 69.1 Lymph % (Auto) 19.4 L [place] % (Auto) 7.3 Eos % (Auto) 3.1 Baso % (Auto) 1.1 Neut # (Auto) 4500 Lymph # (Auto) 1300 [place] # (Auto) 500 Eos # (Auto) 200 Baso # (Auto) 100 Sodium 136 L Potassium 3.7 Chloride 105 Carbon Dioxide 25 BUN 7 Creatinine 0.57 Estimated GFR > 60 BUN/Creatinine Ratio 12.3 Glucose 91 Calcium 8.5 Total Bilirubin 1.4 H AST 349 H ALT 445 H Alkaline Phosphatase 172 H Total Protein 6.4 Albumin 3.5 Globulin 2.9 Albumin/Globulin Ratio 1.2 Assessment & Plan Assessment and plan (1) Acute cholecystitis: Status: Acute Assessment & Plan narrative: 62-year-old woman with symptoms and radiographic findings consistent with acute cholecystitis. Laboratory studies and imaging personally reviewed. Studies are significant for total bilirubin of 1.4 a MRCP demonstrates acute cholecystitis without evidence of choledocholithiasis. Discussed with the patient my recommendations at we proceed to the operating room for laparoscopic cholecystectomy. Overview of the operation was discussed. Operative risks including hemorrhage, infection, damage to surrounding structures including liver biliary tract, intestine were discussed. Questions have been answered she is in agreement with this plan. She provides her written and verbal consent to proceed. Quality VTE Deep Vein Thrombosis/Pulmonary Embolism Present on Admission: No
[2023-01-11] MEDS: CEFAZOLIN 2 GM/100 ML PREMIX 100 ML IV (17:28)
--- NOTE | 2023-01-11 17:36 | SUR.OPER ---
Supine on padded OR bed, head on pillow, safety belt at thigh, left arm padded and tucked at side. Right arm secured on padded arm board <90 degrees abduction. Legs uncrossed. Padded footboard in place. Tape over blanket to secure lower legs.
[2023-01-11] MEDS: BUPIVACAINE 0.25% (PF) VIAL 30 ML INJ (17:45)
[2023-01-11] MEDS: ACETAMINOPHEN IV 1,000 MG/100 ML VIAL 400 MG IV (17:46)
--- NOTE | 2023-01-11 18:56 | PM.OP.1 ---
Operative Date/Time/Diagnoses Date of procedure: 01/11/23 Time of procedure: 18:56 Pre-op diagnosis: Acute cholecystitis Post-op diagnosis: same Procedure & Clinicians Procedure: Laparoscopic cholecystectomy Same procedure as scheduled: Yes Indications: 62-year-old woman with symptoms and radiographic findings consistent with acute cholecystitis total bilirubin is 1.4 MRCP demonstrates no evidence of choledocholithiasis Surgeon: Vaibhav Mendez Yes if Unassisted: Yes Anesthesia Type: General Operative Notes Findings: Acute cholecystitis. Large stones impacted in the neck of the gallbladder Specimen(s): other (Gallbladder) Estimated Blood Loss (mL): 20 Procedure in detail: The patient was placed supine on the table and bilateral lower extremity compression devices were applied. Anesthesia was induced they were intubated with an endotracheal tube and received 2g of Ancef. A time-out was performed. They were prepped and draped in sterile fashion. An infraumbilical incision was made. The fascia was elevated incised and the abdomen was entered atraumatically. A blunt tip 12mm balloon trocar was then inserted, pneumoperitoneum was established and inspection of the abdomen demonstrated no evidence of injury. They were placed head up and right side up and then a 11 mm port was placed high in the epigastrium and two 5mm in the right upper quadrant. The gallbladder was grasped by the fundus and retracted over the liver and retracted laterally by the infundibulum. Gallbladder was acutely inflamed and there were stones stuck in the neck of the gallbladder. Using electrocautery the lateral plane between the gallbladder and the liver was opened towards the fundus. The gallbladder was then retracted laterally and the medial plane was developed in the same manner. With the gallbladder mobilized the bottom of the cystic plate was visualized. The hepatocystic triangle was meticulosly skeletonized with blunt dissection of fat and fibrous tissue from both the front and the back. Only two structures were then clearly seen entering the gallbladder the cystic duct and the cystic artery. With the critical view of safety fully established the cystic duct was clipped twice proximally and once distally using the 10 mm Weck hemoclip applied under direct visualization and then sharply divided. The cystic artery was divided in the same fashion. The gallbladder was removed from the liver bed using electro cautery. The liver bed was then inspected for hemostasis and this was achieved. The abdomen was irrigated with sterile saline and inspection was made that showed the clips in good position. The specimen was removed using Endo-Catch. The abdomen was desufflated. The umbilical fascia was closed with 0 Vicryl in a [id number] fashion under direct visualization. Skin incisions were irrigated and closed with 4-0 Monocryl. 30 ml of 0.25% bupivacaine was infiltrated into the subcutaneous tissue of the incisions. The wounds were sealed with Dermabond. Patient emerged from anesthesia was extubated and transferred to recovery in stable condition. The sponge and instrument count at the end of the operation was correct. Complications: none Post-operative Condition: stable Disposition: Acute Care
[2023-01-12] VITALS: O2SAT 97
[2023-01-12] MEDS: CALCIUM CARBONATE 500 MG TAB 1000 MG PO (02:01)
[2023-01-12 02:56] VITALS: BP 159/90; PULSE 95; RESP 20; TEMP 36.6; O2SAT 96
[2023-01-12] MEDS: ONDANSETRON 4 MG/2 ML INJ IV ×2 (02:59→07:54)
[2023-01-12] MEDS: HYDROMORPHONE 0.5 MG INJ IV (02:59)
[2023-01-12 04:00] VITALS: O2SAT 96
[2023-01-12] MEDS: OXYCODONE IR 5 MG TABLET PO ×2 (04:39→07:52)
--- NOTE | 2023-01-12 04:43 | PC.NURSE ---
Pt complaining of abd pain 01/12. Oxy given per order. Pt has active bowel sounds, encouraged to ambulate and drink water.
[2023-01-12] MEDS: IBUPROFEN 600 MG TABLET PO (07:52)
[2023-01-12 08:00] VITALS: O2SAT 96
--- NOTE | 2023-01-12 09:08 | CM.DPNOTE ---
Met with patient briefly at 0848. She states she is looking forward to going home today and spouse (currently sleeping on couch in room) will be distribution driver. No foreseen DC needs.
--- NOTE | 2023-01-26 12:50 | PC.NURSE ---
Late Entry; Piperacillin infusion initiated on 01/10 at 1944 complete at 2015.
== END 2023-01-12 09:30 | disposition home or self-care (01) ==
LOC: ED 08:52 → AC 18:59
PROVIDERS: Surgery; Admitting Provider Surgery; Emergency Provider Emergency Medicine; PCP Student in an Organized Health Care Education/Training Program; Referring Provider Emergency Medicine; Visit Provider Surgery
PROC: 0FT44ZZ Resection of Gallbladder, Percutaneous Endoscopic Approach (ICD-10-PCS; CPT 47562; principal; 2023-01-11 16:15)
DX: K80.00 Calculus of gallbladder with acute cholecystitis without obstruction (principal); R07.9 Chest pain, unspecified; I10 Essential (primary) hypertension; G47.33 Obstructive sleep apnea (adult) (pediatric)
CPT/HCPCS: 47562; 36415; 74183; 76705; 80053; 81003; 81025; 83690; 85025; 93005; 93010; 96361; 96365; 96375; 96376; 99221; 99284; G0378; A9579; J0131; J0330; J0690; J1100; J1170; J1885; J2060; J2270; J2405; J2543; J2704; J3010; J3490

== ENCOUNTER 2024-10-13 06:30 | Emergency (ER) | payer OTHER, SELFPAY ==
[2023-01-10 20:17] VITALS: BMI 33.5
[2024-10-13] VITALS (11 sets, daily range): BP systolic 147–179; BP diastolic 73–85; PULSE 68–88; RESP 16; TEMP 36.1–36.9; O2SAT 95–100; BMI 30.9
[2024-10-13 07:01] LABS: Appearance Urine UA Clear; Color Urine UA ORANGE; Urine Volume 10mL (spun)
[2024-10-13 07:06] LABS: Bacteria Urine None Seen; Culture Indicated Urine Cult Not Indicated; RBC Urine 0-1/HPF (0-5/HPF); Squamous Epithelial Cell Urine None Seen (0-5/HPF); WBC Urine None Seen (0-5/HPF)
--- NOTE | 2024-10-13 07:12 | ED_ITS ---
HPI - Female Genitourinary General Chief complaint: Urogenital-Female Stated complaint: Urinary Symptoms Time Seen by Provider: 10/13/24 06:54 Source: patient Mode of arrival: Ambulatory History of Present Illness HPI Narrative: Patient is a 64-year-old female presenting to day with painful frequent urination. She reports it started last night. She has had frequent UTIs in the past. Typically it clears with cranberry juice but this is pretty painful and not getting any better. No fever chills no flank pain no nausea or vomiting. No prior history of kidney stone no bowel movement changes Related Data Home Medications Medication Instructions Recorded Confirmed semaglutide (weight loss) 0.25 0.25 mg SUBCUT QWEEK 01/11/23 02/16/23 mg/0.5 mL subcutaneous pen injector Previous Rx's Medication Instructions Recorded acetaminophen 325 mg capsule 650 mg (2 x 325 mg) PO QID PRN 01/11/23 (Tylenol) pain #60 caps oxycodone 5 mg tablet 5 mg PO Q6H PRN pain #20 tabs 01/11/23 Allergies Allergy/AdvReac Type Severity Reaction Status Date / Time No Known Drug Allergies Allergy Verified 02/16/23 13:05 Patient History Medical History Anesthesia Hypertension Obesity TERRANCE on CPAP Parotitis UTI (urinary tract infection) Surgical History Hx of dilation and curettage Family History Father Hypertension Diabetes mellitus Stroke Heart disease Mother Cancer Gallstones tobacco type: cigarettes Exam Initial Vital Signs Initial Vital Signs: Vital Signs Pulse Rate 87 10/13/24 06:40 Pulse Oximetry 100 10/13/24 06:40 GENERAL: Alerts well-appearing 64-year-old female and in no acute distress. HEENT: Head atraumatic,EOMI, pupils reactive, face symmetric, moist mucous membranes CARDIOVASCULAR: Regular rate and rhythm without murmurs, rubs or gallops. RESPIRATORY: Breath sounds equal bilaterally, no wheezes rales or rhonchi. ABDOMEN: Soft, significant suprapubic tenderness more on right than left mild guarding no rebound : No CVA tenderness EXTREMITIES: Normal range of motion, no clubbing or edema. Neurovascularly intact NEUROLOGICAL: Alert and oriented x4.Normal gait and speech. SKIN: Warm, dry, no laceration, no petechiae, no rashes or lesions. Course Orders Ordered: ED Orders 10/13/24 06:40 Urinalysis and Microscopic Stat 10/13/24 07:19 CT abdomen pelvis w con Stat 10/13/24 07:40 CBC Auto Diff [Complete Blood Count AUTO DIFF] Stat CMP [Comprehensive Metabolic Panel] Stat 10/13/24 09:00 Lactate (Lactic Acid) Stat Discontinued Medications Ketorolac Tromethamine (Ketorolac 30 Mg/Ml Vial) 15 mg IV NOW ONE Stop: 10/13/24 07:20 Last Admin: 10/13/24 07:37 Dose: 15 mg Documented By: DUC Vital Signs Vital signs: Vital Signs - 8 hr 10/13/24 06:40 10/13/24 06:41 10/13/24 07:00 Temperature 97 F L Pulse Rate 87 88 73 Respiratory Rate 16 Blood Pressure 179/81 H Pulse Oximetry 100 97 95 Oxygen Delivery Method Room Air 10/13/24 07:01 10/13/24 07:01 10/13/24 07:30 Temperature Pulse Rate 73 74 Respiratory Rate Blood Pressure 147/77 H Pulse Oximetry 95 95 Oxygen Delivery Method 10/13/24 07:32 10/13/24 07:32 10/13/24 07:58 Temperature Pulse Rate 78 75 Respiratory Rate Blood Pressure 147/79 H Pulse Oximetry 95 98 Oxygen Delivery Method 10/13/24 07:58 10/13/24 08:00 10/13/24 08:00 Temperature Pulse Rate 74 Respiratory Rate Blood Pressure 161/85 H 167/85 H Pulse Oximetry 99 Oxygen Delivery Method 10/13/24 08:30 10/13/24 08:30 10/13/24 09:00 Temperature Pulse Rate 69 Respiratory Rate Blood Pressure 152/73 H 157/85 H Pulse Oximetry 98 Oxygen Delivery Method 10/13/24 09:00 10/13/24 09:37 Temperature 98.5 F Pulse Rate 74 68 Respiratory Rate 16 Blood Pressure 153/76 H Pulse Oximetry 98 98 Oxygen Delivery Method Room Air MDM - Female Genitourinary Lab Data 10/13/24 07:40 10/13/24 07:40 Labs: Lab Results 10/13/24 10/13/2410/13/25 Range/Units 06:40 07:40 09:00 WBC 8.2 (4.5-11.0) X10^3/uL RBC 4.75 (4.0-5.2) X10^6/uL Hgb 13.9 (12.0-16.0) g/dL Hct 41.2 (36-46) % MCV 86.7 (80-100) fL MCH 29.3 (26-34) PG MCHC 33.8 (30-36) % RDW 13.9 (11.6-14.8) % Plt Count 210 (150-400) X10^3/uL Neut % (Auto) 66.7 (50-75) % Lymph % (Auto) 21.0 L (25-40) % [place] % (Auto) 8.3 (3-14) % Eos % (Auto) 2.9 (2-4) % Baso % (Auto) 1.1 (0-2) % Neut # (Auto) 5500 (7019-0796) /uL Lymph # (Auto) 1700 (7392-1602) /uL [place] # (Auto) 700 (0-900) /uL Eos # (Auto) 200 (0-450) /uL Baso # (Auto) 100 (0-100) /uL Sodium 137 (137-145) mmol/L Potassium 4.0 (3.4-5.1) mmol/L Chloride 106 (98-107) mmol/L Carbon Dioxide 25 (22-32) mmol/L BUN 9 (7-17) mg/dL Creatinine 0.55 (0.52-1.04) mg/dL Estimated GFR > 60 (>60) mL/min BUN/Creatinine Ratio 16.4 (6-22) Glucose 120 H (70-99) mg/dL Lactate 1.1 (0.7-2.1) mmol/L Calcium 9.0 (8.4-10.2) mg/dL Total Bilirubin 0.4 (0.2-1.3) mg/dL AST 45 H (14-36) IU/L ALT 38 H (<35) IU/L Alkaline Phosphatase 73 (38-126) U/L Total Protein 6.5 (6.3-8.2) g/dL Albumin 3.8 (3.5-5.0) g/dL Globulin 2.7 (1.7-4.1) g/dL Albumin/Globulin Ratio 1.4 (1.0-2.8) Urine Color [place] Urine Appearance Clear Urine pH TNP Ur Specific [place] TNP Urine Protein TNP Urine Glucose (UA) TNP Urine Ketones TNP Urine Occult Blood TNP Urine Nitrate TNP Urine Bilirubin TNP Urine Urobilinogen TNP Ur Leukocyte Esterase TNP Urine RBC 0-1/hpf (0-5/HPF) Urine WBC None seen (0-5/HPF) Ur Squamous Epith Cells None seen (0-5/HPF) Urine Bacteria None seen (None) Ur Culture Indicated? Cult not indicated Vol Urine Centrifuged 10ml (spun) Imaging Data CT scan - abdomen/pelvis: Radiologist's Impression: PROCEDURE: CT ABDOMEN PELVIS W CON INDICATIONS: lower ab pain TECHNIQUE: After the administration of intravenous contrast, axial sections acquired from the lung bases to the pubic symphysis. Coronal and sagittal reformats were performed. For radiation dose reduction, the following was used: automated exposure control, adjustment of mA and/or kV according to patient size. COMPARISON: [facility], CT, CT ABDOMEN PELVIS W CON, 03/30/2022, 19:41. FINDINGS: Image quality: Diagnostic. Lower Chest: No significant findings. ABDOMEN: Liver: Mild hepatic steatosis. Dropped cholecystectomy clip near the bare area of the liver dorsally. Gallbladder: Surgically absent. Biliary ducts: Appropriate biliary tree caliber post cholecystectomy. Pancreas: Mildly prominent pancreatic duct. Otherwise normal morphology. Spleen: Size is within normal limits. Adrenal Glands: Low-density left adrenal body nodule, stable. Kidneys and Ureters: Symmetric enhancement. No nephrolithiasis or hydronephrosis. No visible mass or cyst requiring follow up. No hydroureter. Stomach and Bowel: Stomach and small bowel loops are normal caliber. Normal appendix. Descending and sigmoid diverticulosis. Moderately increased distal sigmoid stool burden. Peritoneum: No abnormal intraperitoneal fluid. No free air. Ventral Wall: Tiny fat containing umbilical hernia. Abdominal Nodes: No retroperitoneal or mesenteric adenopathy by size criteria. Vessels: The abdominal aorta, IVC, and portal vein are of normal caliber. PELVIS: Pelvic Organs: Uterus and ovaries are normal. Bladder: Decompressed. No stones. Pelvic Nodes: No enlarged lymph nodes. Miscellaneous: There is a tiny fat and fluid containing left inguinal hernia with a narrow neck and prominent overlying subcutaneous stranding/inflammation the neck measures about 7 mm, best seen on sagittal image 61 series 4. Bones: Right hip arthroplasty components are present. Degenerative changes in the left hip and moderate dextroscoliosis of spine. IMPRESSION: Inflamed, possibly incarcerated, fat and fluid containing left inguinal hernia. Colonic diverticulosis without acute diverticulitis. Hepatic steatosis. Dictated by: Willa Adam M.D. on 10/13/2024 at 8:23 Approved by: Willa Adam M.D. on 10/13/2024 at 8:32 [facility] Narrative Medical decision making narrative: Patient is a 64-year-old female with history of frequent UTIs presenting today with painful frequent urination. Urinalysis does not show any evidence of UTI and on exam she was quite tender in her suprapubic region. Blood work has been reviewed No leukocytosis no anemia CMP no electrolyte abnormality no PANKAJ Lactate 1.1 Liver enzymes bilirubin within normal limits actually improved from previously CT abdomen pelvis show inflamed possible incarcerated fat and fluid containing left inguinal hernia. Dr. Elliott, in ED to see and evaluate patient successfully reduce the hernia patient immediately felt better At this time patient can follow-up with general surgery as an outpatient. Symptoms have completely resolved. Discharge Plan Departure Patient Disposition: Home Clinical Impression: Hernia, inguinal, left Instructions: Groin Hernia -- Adult Activity Restrictions/Additional Instructions: *You have been diagnosed with inguinal hernia *What to do: At this time please follow-up with surgery you will ultimately need surgical repair You maybe slightly sore today but it should in general feel better *Continue to take medications as directed Tylenol Motrin as needed for pain *Follow up with your primary care provider in 2-3 days or call [phone] [facility] *Return to ER if you should have increasing pain, nausea vomiting fever or any new, worsening or concerning symptoms Prescriptions: No Action oxycodone 5 mg tablet 5 mg PO Q6H PRN (Reason: pain) Qty: 20 0RF acetaminophen [Tylenol] 325 mg capsule 650 mg PO QID PRN (Reason: pain) Qty: 60 0RF semaglutide (weight loss) 0.25 mg/0.5 mL Pen Injector 0.25 mg SUBCUT QWEEK Rx Instructions: administer weeks 1 through 4 of therapy Referrals: [facility] [Provider Group] Kimmy Guillen MD [Primary Care Provider] - Stand Alone Forms: Patient Portal/API/Survey
--- NOTE | 2024-10-13 07:19 | DI.CT.S_ITS ---
PROCEDURE: CT ABDOMEN PELVIS W CON INDICATIONS: lower ab pain TECHNIQUE: After the administration of intravenous contrast, axial sections acquired from the lung bases to the pubic symphysis. Coronal and sagittal reformats were performed. For radiation dose reduction, the following was used: automated exposure control, adjustment of mA and/or kV according to patient size. COMPARISON: [facility], CT, CT ABDOMEN PELVIS W CON, 03/30/2022, 19:41. FINDINGS: Image quality: Diagnostic. Lower Chest: No significant findings. ABDOMEN: Liver: Mild hepatic steatosis. Dropped cholecystectomy clip near the bare area of the liver dorsally. Gallbladder: Surgically absent. Biliary ducts: Appropriate biliary tree caliber post cholecystectomy. Pancreas: Mildly prominent pancreatic duct. Otherwise normal morphology. Spleen: Size is within normal limits. Adrenal Glands: Low-density left adrenal body nodule, stable. Kidneys and Ureters: Symmetric enhancement. No nephrolithiasis or hydronephrosis. No visible mass or cyst requiring follow up. No hydroureter. Stomach and Bowel: Stomach and small bowel loops are normal caliber. Normal appendix. Descending and sigmoid diverticulosis. Moderately increased distal sigmoid stool burden. Peritoneum: No abnormal intraperitoneal fluid. No free air. Ventral Wall: Tiny fat containing umbilical hernia. Abdominal Nodes: No retroperitoneal or mesenteric adenopathy by size criteria. Vessels: The abdominal aorta, IVC, and portal vein are of normal caliber. PELVIS: Pelvic Organs: Uterus and ovaries are normal. Bladder: Decompressed. No stones. Pelvic Nodes: No enlarged lymph nodes. Miscellaneous: There is a tiny fat and fluid containing left inguinal hernia with a narrow neck and prominent overlying subcutaneous stranding/inflammation the neck measures about 7 mm, best seen on sagittal image 61 series 4. Bones: Right hip arthroplasty components are present. Degenerative changes in the left hip and moderate dextroscoliosis of spine. IMPRESSION: Inflamed, possibly incarcerated, fat and fluid containing left inguinal hernia. Colonic diverticulosis without acute diverticulitis. Hepatic steatosis. Dictated by: Willa Adam M.D. on 10/13/2024 at 8:23 Approved by: Willa Adam M.D. on 10/13/2024 at 8:32
[2024-10-13] MEDS: KETOROLAC 30 MG/ML VIAL 15 MG IV (07:37)
[2024-10-13 07:48] LABS: Add Manual Diff / Slide Review NO; Basophils Absolute Auto 100 /uL (0-100); Basophils Percent Auto 1.1 % (0-2); Eosinophils Absolute Auto 200 /uL (0-450); Eosinophils Percent Auto 2.9 % (2-4); Hematocrit 41.2 % (36-46); Hemoglobin 13.9 g/dL (12.0-16.0); Lymphocytes Absolute Auto 1700 /uL (1100-4500); Mean Corpuscular HGB Conc 33.8 % (30-36); Mean Corpuscular Hemoglobin 29.3 PG (26-34); Mean Corpuscular Volume 86.7 fL (80-100); Monocytes Absolute Auto 700 /uL (0-900); Monocytes Percent Auto 8.3 % (3-14); Neutrophils Absolute Auto 5500 /uL (1500-7000); Neutrophils Percent Auto 66.7 % (50-75); Platelet Count 210 X10^3/uL (150-400); Red Blood Cell Count 4.75 X10^6/uL (4.0-5.2); Red Cell Distribution Width 13.9 % (11.6-14.8); White Blood Cell Count 8.2 X10^3/uL (4.5-11.0)
[2024-10-13 07:58] LABS: Alanine Aminotransferase 38 IU/L (<35); Albumin 3.8 g/dL (3.5-5.0); Albumin Globulin Ratio 1.4 (1.0-2.8); Alkaline Phosphatase 73 U/L (38-126); Aspartate Aminotransferase 45 IU/L (14-36); BUN Creatinine Ratio 16.4 (6-22); Bilirubin Total 0.4 mg/dL (0.2-1.3); Blood Urea Nitrogen 9 mg/dL (7-17); Carbon Dioxide 25 mmol/L (22-32); Chloride 106 mmol/L (98-107); Estimated Glomerular Filt Rate > 60 mL/min (>60); Globulin 2.7 g/dL (1.7-4.1); Glucose 120 mg/dL (70-99); HEMOLYSIS < 15 (0-50); Sodium 137 mmol/L (137-145); Total Protein 6.5 g/dL (6.3-8.2)
[2024-10-13 09:18] LABS: Lactate (Lactic Acid) 1.1 mmol/L (0.7-2.1)
--- NOTE | 2024-10-13 09:27 | P.CONS_ITS ---
History of Present Illness Consult details Chief complaint: Urinary Symptoms Narrative: Obese 64-year-old female who awoke today with what she thought was a UTI. She presented to the ED where physical exam demonstrated mild bilateral lower quadrant tenderness and no evidence of UTI. A CT abdomen pelvis demonstrated a left inguinal hernia, potentially incarcerated. I am consulted to render surgical opinion regarding appropriate management. Meds Home Medications and Allergies Home Medications Medication Instructions Recorded Confirmed Type acetaminophen 325 mg capsule 650 mg (2 x 325 mg) PO QID PRN 01/11/23 02/16/23 Rx (Tylenol) pain #60 caps oxycodone 5 mg tablet 5 mg PO Q6H PRN pain #20 tabs 01/11/23 02/16/23 Rx semaglutide (weight loss) 0.25 0.25 mg SUBCUT QWEEK 01/11/23 02/16/23 History mg/0.5 mL subcutaneous pen injector Allergies Allergy/AdvReac Type Severity Reaction Status Date / Time No Known Drug Allergies Allergy Verified 02/16/23 13:05 Review of Systems Review of Systems Narrative: Comprehensive review of systems negative to direct questioning. Exam Vital Signs (past 8 hours): - 10/13/24 06:40 10/13/24 06:41 10/13/24 07:00 Temperature 97 F L Pulse Rate 87 88 73 Respiratory Rate 16 Blood Pressure 179/81 H Pulse Oximetry 100 97 95 Oxygen Delivery Method Room Air 10/13/24 07:01 10/13/24 07:01 10/13/24 07:30 Temperature Pulse Rate 73 74 Respiratory Rate Blood Pressure 147/77 H Pulse Oximetry 95 95 Oxygen Delivery Method 10/13/24 07:32 10/13/24 07:32 10/13/24 07:58 Temperature Pulse Rate 78 75 Respiratory Rate Blood Pressure 147/79 H Pulse Oximetry 95 98 Oxygen Delivery Method 10/13/24 07:58 10/13/24 08:00 10/13/24 08:00 Temperature Pulse Rate 74 Respiratory Rate Blood Pressure 161/85 H 167/85 H Pulse Oximetry 99 Oxygen Delivery Method 10/13/24 08:30 10/13/24 08:30 10/13/24 09:00 Temperature Pulse Rate 69 Respiratory Rate Blood Pressure 152/73 H 157/85 H Pulse Oximetry 98 Oxygen Delivery Method 10/13/24 09:00 Temperature Pulse Rate 74 Respiratory Rate Blood Pressure Pulse Oximetry 98 Oxygen Delivery Method Oxygen Delivery Method Room Air Narrative Exam Narrative: In general this is an obese female alert and oriented x3 in no acute distress. Head is normocephalic and atraumatic. Neck is supple. Back is without CVA or spinous process tenderness. Lungs are clear to auscultation. Chest is symmetric, nontender with normal inspiratory and expiratory excursion. Heart has a regular rate and rhythm with no murmur or gallop. Abdomen is soft and nontender with normal bowel sounds. Inguinal exam is remarkable for a tender left inguinal hernia. This is reduced manually with resolution of the patient's symptoms. There is no right inguinal hernia. Extremities manifests full range of motion. Neurological exam is grossly nonfocal. Objective Labs 10/13/24 07:40 10/13/24 07:40 Labs: Laboratory Results - last 24 hr 10/13/24 10/13/24 10/13/24 06:40 07:40 09:00 WBC 8.2 RBC 4.75 Hgb 13.9 Hct 41.2 MCV 86.7 MCH 29.3 MCHC 33.8 RDW 13.9 Plt Count 210 Neut % (Auto) 66.7 Lymph % (Auto) 21.0 L [place] % (Auto) 8.3 Eos % (Auto) 2.9 Baso % (Auto) 1.1 Neut # (Auto) 5500 Lymph # (Auto) 1700 [place] # (Auto) 700 Eos # (Auto) 200 Baso # (Auto) 100 Sodium 137 Potassium 4.0 Chloride 106 Carbon Dioxide 25 BUN 9 Creatinine 0.55 Estimated GFR > 60 BUN/Creatinine Ratio 16.4 Glucose 120 H Lactate 1.1 Calcium 9.0 Total Bilirubin 0.4 AST 45 H ALT 38 H Alkaline Phosphatase 73 Total Protein 6.5 Albumin 3.8 Globulin 2.7 Albumin/Globulin Ratio 1.4 Urine Color [place] Urine Appearance Clear Urine pH TNP Ur Specific [place] TNP Urine Protein TNP Urine Glucose (UA) TNP Urine Ketones TNP Urine Occult Blood TNP Urine Nitrate TNP Urine Bilirubin TNP Urine Urobilinogen TNP Ur Leukocyte Esterase TNP Urine RBC 0-1/hpf Urine WBC None seen Ur Squamous Epith Cells None seen Urine Bacteria None seen Ur Culture Indicated? Cult not indicated Vol Urine Centrifuged 10ml (spun) [facility] Medical History Anesthesia Hypertension Obesity TERRANCE on CPAP Parotitis UTI (urinary tract infection) Surgical History Hx of dilation and curettage Family History Father Hypertension Diabetes mellitus Stroke Heart disease Mother Cancer Gallstones Social History household members: spouse Tobacco & Substance Use alcohol intake: current Assessment & Plan Assessment and plan (1) Reducible left inguinal hernia: Status: Acute Plan: Urgent surgical intervention is not required in this circumstance. As the hernia is reducible, an elective herniorrhaphy is recommended. I would like the patient to contact my office for outpatient follow-up and scheduling of her procedure. I discussed the foregoing with the patient who desires to proceed as I have outlined. Time-Based Coding :: [TOTAL MINUTES] spent with patient and on the chart (including review of chart, obtaining history, exam, reviewing outside data, placing orders, documenting exam and treatment plan, and counseling patient) on [DATE]. PROFEE Charge Codes Inpatient or Observation consultation: 12855
== END 2024-10-13 09:47 | disposition home or self-care (01) ==
PROVIDERS: Emergency Medicine; Emergency Provider Emergency Medicine; PCP Student in an Organized Health Care Education/Training Program
DX: K40.90 Unilateral inguinal hernia, without obstruction or gangrene, not specified as recurrent (principal)
CPT/HCPCS: 36415; 74177; 80053; 81001; 83605; 85025; 96374; 99284; J1885; Q9967